=== PATIENT | male | born 1955 | race Caucasian/White ===

== ENCOUNTER → 2021-11-12 12:26 | Outpatient (BNVA) | payer MEDICARE, SELFPAY | PROVIDERS: PCP Nurse Practitioner Family; Referring Provider Nurse Practitioner Family; Visit Provider Surgery | DX: K64.9 Unspecified hemorrhoids (principal); K62.5 Hemorrhage of anus and rectum | CPT/HCPCS: 99203 ==

== ENCOUNTER 2022-01-17 06:27 | Day surgery (SDC) | payer MEDICARE, SELFPAY ==
[2022-01-14 16:04] VITALS: BMI 26.4
[2022-01-17 06:45] VITALS: BP 138/76; PULSE 54; RESP 18; TEMP 36.3; O2SAT 98
[2022-01-17] MEDS: sodium chloride 0.9% 1,000 ML 30 ML IV (06:57)
--- NOTE | 2022-01-17 07:45 | W.PM.OPSFHP ---
Same Day Surgery H&P Indication for Procedure/HPI DATE OF PROCEDURE: January 17, 2022 CHIEF COMPLAINT/INDICATIONFOR SURGICAL PROCEDURE: Bleeding per rectum PREOP DIAGNOSIS: Bleeding per rectum PLANNED PROCEDURE: Operation Date: 01/17/22 08:00 Proposed Procedures p Colonoscopy 66635(Not Applicable) - Sigifredo Sanchez MD 11/12/2021 This is a pleasant 66 years old gentleman presents with history of bleeding per rectum and often times he has a flareup of a hemorrhoid but currently it is not bothering him.? Patient reports history of colon cancer of his sister that she at age of 63.? Otherwise he denies nonintentional weight loss and he reports remotely history of peptic ulcer disease but he denies any symptoms related to his stomach.? Currently the patient does not have much complaints with regard to his hemorrhoids per his description. Interim history 01/17/2022 Patient comes today for diagnostic colonoscopy ROS All systems have been reviewed negative except as for the above or per problem list. Medications/Allergies* Home Medications Medication Instructions Recorded Confirmed Type atenolol 50 mg tablet 50 mg PO DAILY 11/12/21 01/17/22 History penicillin V potassium 500 mg 500 mg PO QID 01/16/22 01/17/22 History tablet Allergies/Adverse Reactions Allergy/AdvReac Type Severity Reaction Status Date / Time No Known Allergies Allergy Verified 01/17/22 07:46 Current Medications: Generic Name Dose Route Start Last Admin Trade Name Freq PRN Reason Stop Dose Admin Sodium Chloride 1,000 mls @ 30 mls/hr 01/17/22 06:45 01/17/22 06:57 Sodium Chloride 0.9% IV 01/18/22 06:44 30 mls/hr .Q24H ELIAS Administration Pertinent History/Comorbid Conditions* Family History (Updated 11/12/21 @ 12:40 by Tessa Lara) Dementia Cancer Denies family history of Diabetes CAD (coronary artery disease) Chronic kidney disease (CKD) Hypertension Stroke Social History Smoking and tobacco status: never smoked Alcohol intake: never Lives independently: Yes Household members: spouse Marital status: Pertinent Exam Findings alert, oriented x 3, regular rate & rhythm and procedure specific exam findings (Abdominal exam nontender nondistended soft) Recommendations Surgery/Procedure today (Colonoscopy with possible biopsy) Coding Level of Care Code Acute Sulfuric Acid Plant Supervisor for Chg Kaleb
--- NOTE | 2022-01-17 07:47 | ANES.PREANE2 ---
Documented by User: Shannen Thompson CRNA 01/17/22 07:51 Pre-Anesthetic Assessment Height/Weight: Height 1.85 m Weight 90.718 kg Temp Pulse Resp BP Pulse Ox 97.4 F L 54 L 18 138/76 98 01/17/22 06:45 01/17/22 06:45 01/17/22 06:45 01/17/22 06:45 01/17/22 06:45 Preop Diagnosis: Bleeding per rectum Operation Date: 01/17/22 08:00 Proposed Procedures p Colonoscopy 52775(Not Applicable) - Sigifredo Sanchez MD Familial anesthetic complications: none Was Beta Sara taken within 24 hours: N/A (took last night) Was Clonidine taken within 24 hours: N/A Last intake: Intake Last Liquid Date 01/16/22 Last Liquid Time 23:00 Last Solid Date 01/15/22 Last Solid Time 00:00 Social No alcohol and No tobacco Exam alert and oriented x 3 Airway Submandibular: within normal limits Cervical ROM: within normal limits Mallampati: Class III Dentition: chipped (chipped/broken in back) and full History/ROS No significant history except as noted CV/HEM Hypertension Anesthetic Plan ASA status: 2 Anesthesia: Anesthesia Evaluation and MAC Risk of > 500 ml blood loss (7ml/kg in children): No Medications/Allergies Home Medications Medication Instructions Recorded Confirmed Last Taken Type atenolol 50 mg tablet 50 mg PO DAILY 11/12/21 01/17/22 01/16/22 History penicillin V potassium 500 mg 500 mg PO QID 01/16/22 01/17/22 01/16/22 History tablet Allergies Allergy/AdvReac Type Severity Reaction Status Date / Time No Known Allergies Allergy Verified 01/17/22 07:46 Current Medications Generic Name Dose Route Start Last Admin Trade Name Freq PRN Reason Stop Dose Admin Sodium Chloride 1,000 mls @ 30 mls/hr 01/17/22 06:45 01/17/22 06:57 Sodium Chloride 0.9% IV 01/18/22 06:44 30 mls/hr .Q24H ELIAS Administration PFSH Anesthesia Medical History (Updated 01/17/22 @ 08:23 by Sigifredo Sanchez MD) Diverticulosis large intestine w/o perforation or abscess w/bleeding Family History Other Cancer Dementia Denies family history of Diabetes CAD (coronary artery disease) Chronic kidney disease (CKD) Hypertension Stroke Social History Smoking and tobacco status: never smoked Alcohol intake: never Lives independently: Yes Household members: spouse Marital status: Data Anesthesia Cardiac Studies: No Data to Display
[2022-01-17 08:19] VITALS: BP 90/55; PULSE 54; RESP 18; TEMP 36.1; O2SAT 95
--- NOTE | 2022-01-17 08:22 | ANE.PACU2 ---
Documented by User: Shannen Thompson CRNA 01/17/22 08:22 Inpatient post-anesthesia follow up: Airway intact: Yes Vital signs: Temperature 97.4 F Pulse Rate 54 Respiratory Rate 18 Blood Pressure 138/76 Pulse Oximetry 98 Oxygen Delivery Me thod Room Air Oxygen Flow Rate Fraction of Inspir ed Oxygen Hydration adequate: Yes Nausea and vomiting: No Pain level: 1 Mental status: Baseline
[2022-01-17 08:24] VITALS: BP 98/58; PULSE 52; RESP 18; O2SAT 94
[2022-01-17 08:34] VITALS: BP 115/61; PULSE 56; RESP 18; O2SAT 97
== END 2022-01-17 08:58 | disposition home or self-care (01) ==
PROVIDERS: PCP Nurse Practitioner Family; Visit Provider Surgery
PROC: 0DJD8ZZ Inspection of Lower Intestinal Tract, Via Natural or Artificial Opening Endoscopic (ICD-10-PCS; CPT 45378; principal; 2022-01-17 08:00)
DX: K62.5 Hemorrhage of anus and rectum (principal); D12.4 Benign neoplasm of descending colon; K57.30 Diverticulosis of large intestine without perforation or abscess without bleeding; I10 Essential (primary) hypertension
CPT/HCPCS: 45385; 88305; J2704; J7030

== ENCOUNTER → 2022-01-23 15:11 | Outpatient (BNVA) | payer MEDICARE, SELFPAY | PROVIDERS: PCP Nurse Practitioner Family; Visit Provider Surgery | DX: Z09 Encounter for follow-up examination after completed treatment for conditions other than malignant neoplasm (principal); K57.31 Diverticulosis of large intestine without perforation or abscess with bleeding; K63.5 Polyp of colon | CPT/HCPCS: 99213 ==

== ENCOUNTER 2022-07-06 17:50 | Inpatient (IN) | payer MEDICARE, SELFPAY ==
[2022-07-06] VITALS (8 sets, daily range): BP systolic 110–148; BP diastolic 42–93; PULSE 63–105; RESP 12–18; TEMP 36.4; O2SAT 96–99; BMI 25.7
--- NOTE | 2022-07-06 18:35 | ECG_ITS ---
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
--- NOTE | 2022-07-06 18:35 | ED_ITS ---
HPI - GI Bleed General: Chief complaint: GI Bleed Stated complaint: possible bleeding ulcers Time Seen by Provider: 07/06/22 18:35 History of Present Illness: Mr. Reyes is a 66-year-old gentleman with history of diverticulosis presenting to the emergency department due to blood per re ctum. Onset of symptoms was nonpainful earlier today initially with dark black stools however upon arriving in the emergency department he did have bright red stools associated with presyncopal type feeling including diaphoresis. Denies associated abdominal pain or infectious symptoms. No changes in diet. Intensity symptoms is currently mild though at worst was severe. No other specific changes in health, exacerbating, or alleviating factors identified. Onset (ago): hour(s) Relieving factors: none Exacerbating factors: none Associated symptoms: Reports other (Lightheaded episode with diaphoresis) Review of Systems General: Reports: 10 or more systems reviewed and unremarkable except in HPI and below PFSH ED PFSH: Medical History Diverticulosis large intestine w/o perforation or abscess w/bleeding History of gastric ulcer Hypertension Sciatica of right side Surgical History History of back surgery History of esophagogastroduodenoscopy (EGD) Family History Other Cancer Dementia Denies family history of Diabetes CAD (coronary artery disease) Chronic kidney disease (CKD) Hypertension Stroke Social History Smoking and tobacco status: never smoked Alcohol intake: never Lives independently: Yes Household members: spouse Marital status: Physical Exam Const: COMMON NORMALS: alert GENERAL APPEARANCE: cooperative, well developed and ill appearing (Mildly) HENMT: COMMON NORMALS: normocephalic and atraumatic HEAD & SCALP: normocephalic and atraumatic Eye: COMMON NORMALS: conjunctivae normal CONJUNCTIVA: Yes conjunctivae n ormal SCLERA: sclerae normal Neck/C-Spine: COMMON NORMALS: supple GENERAL: Yes trachea midline Resp: COMMON NORMALS: clear to auscultation bilaterally EFFORT & INSPECTION: Yes able to speak in complete sentences AUSCULTATION: clear to auscultation bilaterally Cardio: COMMON NORMALS: regular rate and regular rhythm RATE: regular rate RHYTHM: regular rhythm GI: COMMON NORMALS: Soft to palpation PALPATION: Yes Soft to palpation and No Tenderness to palpation present (GI) OTHER: Rectal exam performed with fibre optic cable splicer present. There is dark red blood and external hemorrhoid appreciated on exam. Extremity: GENERAL: Yes normal exam except as noted and No edema Neuro: COMMON NORMALS: moves all extremities SENSORIUM/ORIENTATION: Yes alert and No Orientation impaired Psych: COMMON NORMALS: mental status grossly normal and Normal thought process present THOUGHT PROCESS: Normal thought process present Course Vital Signs: Vital signs: Vital Signs Temperature 97.9 F 07/10/22 04:00 Pulse Rate 61 07/10/22 06:40 Respiratory Rate 17 07/10/22 04:00 Blood Pressure 119/66 07/10/22 04:00 Pulse Oximetry 98 07/10/22 04:00 Oxygen Delivery Me thod 07/09/22 20:44 Oxygen Flow Rate 4 07/08/22 12:54 MDM - GI Bleed Medical Decision Making 66-year-old gentleman presenting with GI bleed. Initially had just black stools however had a presyncopal event associated with dark red blood per rectum while in the emergency department. Exam as above. Labs notable for leukocytosis which may be reactive or secondary to infectious etiology, initial hemoglobin 11.7. Coags normal. Metabolic panel without significant derangement. Chest x-ray with no lobar consolidation or pneumothorax. CTA without evidence of active hemorrhage, incidental findings discussed with patient. Patient had recurrent presyncopal event with another bloody bowel movement. Given rectal exam findings and this evening in the context of only modest drop in hemoglobin I believe that the patient requires inpatient monitoring for repeat hemoglobin and treatment as necessary based on results. During ED course patient given IV fluids and Protonix. Case was discussed with Dr. Barrett of the general surgery service who is on- call for GI, patient to be placed on clear liquid diet and admitted to medicine service. The results of ED evaluation were discussed with the patient including plan for admission due to requirement for level of care not available if discharged to prevent significant worsening/deterioration. Patient agreeable with plan. Discussed with hospitalist service who was agreeable to admit patient. Medical Records I reviewed the patient's medical records. Lab Data I reviewed the patient's lab results. 07/06/22 18:40 07/06/22 18:40 Radiology Impressions Chest X-Ray 07/06/22 18:40 IMPRESSION: No acute findings. Abdomen/Pelvis CTA 07/06/22 19:06 IMPRESSION: 1. Negative for acute inflammatory process in the abdomen or pelvis. 2. Right kidney cyst, negative for follow-up advised. 3. Lumbar spine surgical hardware in place at T11, T12 and T1. 4. L2, L3 and L4 likely chronic compression fractures without retropulsion of bony fragments or spinal canal narrowing. 5. Diverticulosis without diverticulitis. 6. Small to moderate umbilical hernia containing omentum without bowel. COMMENTS: Consistent with the [place] [employer]'s Incidental Findings Committee white paper (J Am Jason Radiol 2018): Any incidental renal lesion less than 1 cm or classified as too small to characterize, or any incidental cystic renal lesion characterized as simple-appearing, is likely benign. No follow-up imaging is recommended for these lesions per consensus recommendations based on imaging criteria. ADDENDUM: 07/06/22 2007 Exam is a CTA of the abdomen and pelvis. CTA images of the entire chest were not included. Hip X-Ray 07/07/22 12:16 IMPRESSION: No acute findings. Lumbar Spine CT 07/07/22 12:16 IMPRESSION: 1. Severe osteopenia and osteoarthritis. 2. Multiple compression fractures in the lumbar spine . 3. Postoperative hardware left-side T12-L1. 4. A large Schmorl's nodes superior endplate L4 5. Mild central canal stenosis L4-L5 . Thoracic Spine CT 07/07/22 12:16 IMPRESSION: 1. Osteopenia and osteoarthritis. 2. Multiple vertebral compression fractures. 3. Orthopedic hardware left side T12-L1 4. Negative for disc herniation, foraminal stenosis, canal stenosis Laboratory Results WBC 8.0 10^3/uL (4.0-10.0) 07/08/22 05:05 RBC 2.77 10^6/uL (4.1-5.3) L 07/08/22 05:05 Hgb 8.1 g/dL (11.7-16.6) L 07/08/22 14:31 Hct 26.0 % (42.0-52.0) L 07/08/22 05:05 MCV 93.9 fl (80-94) 07/08/22 05:05 MCH 30.3 pg (28.0-34.0) 07/08/22 05:05 MCHC 32.3 g/dL (30.0-36.0) 07/08/22 05:05 RDW 13.4 % (12.1-15.1) 07/08/22 05:05 Plt Count 144 10^3/cmm (130-400) 07/08/22 05:05 MPV 11.3 fL (7.4-10.4) H 07/08/22 05:05 Neut % (Auto) 71.2 % 07/08/22 05:05 Lymph % (Auto) 20.1 % 07/08/22 05:05 [place] % (Auto) 6.0 % 07/08/22 05:05 Eos % (Auto) 1.3 % 07/08/22 05:05 Baso % (Auto) 0.4 % 07/08/22 05:05 Neut # (Auto) 5.66 10^3/uL (1.8-7.7) 07/08/22 05:05 Lymph # (Auto) 1.6 10^3/uL (0.8-4.8) 07/08/22 05:05 [place] # (Auto) 0.5 10^3/uL (0.2-0.9) 07/08/22 05:05 Eos # (Auto) 0.1 10^3/uL (0.0-0.8) 07/08/22 05:05 Baso # (Auto) 0.0 10^3/uL (0.0-0.1) 07/08/22 05:05 Nucleated RBC % (auto) 0 % 07/08/22 05:05 Nucleated RBCs # 0.0 /100WBC 07/08/22 05:05 PT 14.40 SECONDS (12.1-14.9) 07/06/22 18:40 INR 1.09 (0.8-1.2) 07/06/22 18:40 APTT 22.0 SECONDS (23.9-36.7) L 07/06/22 18:40 Sodium 140 mmol/L (136-145) 07/08/22 05:05 Potassium 4.0 mmol/L (3.5-5.1) 07/08/22 05:05 Chloride 109 mmol/L (98-107) H 07/08/22 05:05 Carbon Dioxide 23 mmol/L (22-29) 07/08/22 05:05 Anion Gap 12.0 (5-19) 07/08/22 05:05 BUN 11 mg/dL (8-23) 07/08/22 05:05 Creatinine 0.8 mg/dL (0.7-1.2) 07/08/22 05:05 GFR Calculation 96.4 mL/min (90-130) 07/08/22 05:05 Glucose 96 mg/dL (65-115) 07/08/22 05:05 Estimat Average Glucose 111 07/08/22 05:05 Hemoglobin A1c 5.5 % (4.0-6.0) 07/08/22 05:05 Calculated Osmolality 289 mOsm/kg (285-295) 07/08/22 05:05 Lactate 1.5 mmol/L (0.5-2.2) 07/06/22 19:17 Calcium 7.8 mg/dL (8.5-10.5) L 07/08/22 05:05 Phosphorus 3.6 mg/dL (2.5-4.5) 07/07/22 03:41 Magnesium 2.0 mg/dL (1.7-2.3) 07/07/22 03:41 Iron 256 ug/dL (59-158) H 07/07/22 17:40 TIBC 272.80653 mcg/dl 07/07/22 17:40 % Saturation 93.0 % (20-50) H 07/07/22 17:40 Unsat Iron Binding < 17 ug/dL (112-347) L 07/07/22 17:40 Total Bilirubin 0.7 mg/dL (0.15-1.2) 07/08/22 05:05 AST 14 U/L (0-40) 07/08/22 05:05 ALT 7 U/L (0-41) 07/08/22 05:05 Alkaline Phosphatase 66 U/L (40-130) 07/08/22 05:05 Troponin T Baseline 14 ng/L (0-15) 07/06/22 18:40 Troponin T 120 Minute 14.11 ng/L (0-15) 07/06/22 20:35 Delta Troponin T 0.11 ABS# (0-10) 07/06/22 20:35 Troponin T Hi Sens 6Hr 15.95 ng/L (0-15) H 07/07/22 00:35 Troponin T Hi Sens 6Hr Delta 1.95 ng/L (0-12) 07/07/22 00:35 Total Protein 5.0 g/dL (6.6-8.7) L 07/08/22 05:05 Albumin 2.9 g/dL (3.5-5.2) L 07/08/22 05:05 Globulin 2.1 g/dL (1.3-4.6) 07/08/22 05:05 Triglycerides 122 mg/dL (0-150) 07/08/22 05:05 Cholesterol 112 mg/dL (0-200) 07/08/22 05:05 LDL Cholesterol, Calc 60 mg/dL (50-129) 07/08/22 05:05 Total VLDL Cholesterol 24 mg/dL (0-30) 07/08/22 05:05 HDL Cholesterol 28 mg/dL (60-100) L 07/08/22 05:05 Cholesterol/HDL Ratio 4.00 mg/dL (1.0-5.00) 07/08/22 05:05 Lipase 18 U/L (13-60) 07/06/22 18:40 Vitamin B12 204 pg/mL (232-1245) L 07/07/22 17:40 Folate 7.4 ng/mL (4.5-32.2) 07/07/22 17:40 TSH 0.68 uIU/mL (0.27-4.20) 07/07/22 17:40 Urine Color Yellow (Yellow) 07/07/22 23:12 Urine Appearance Clear (CLEAR) 07/07/22 23:12 Urine pH 6 (5-7) 07/07/22 23:12 Ur Specific [place] 1.010 (1.005-1.030) 07/07/22 23:12 Urine Protein Neg (Negative) 07/07/22 23:12 Urine Glucose (UA) Norm (Normal) 07/07/22 23:12 Urine Ketones Negative (Negative) 07/07/22 23:12 Urine Blood Neg (Negative) 07/07/22 23:12 Urine Nitrate Negative (Negative) 07/07/22 23:12 Urine Bilirubin Neg (Negative) 07/07/22 23:12 Urine Urobilinogen Neg mg/dL (Negative) 07/07/22 23:12 Ur Leukocyte Esterase Negative (Negative) 07/07/22 23:12 Blood Type O Positive 07/08/22 12:30 Rho(D) Type Positive 07/08/22 12:30 Antibody Screen Negative 07/08/22 12:30 Crossmatch See Detail 07/08/22 12:30 Discharge Plan Discharge Patient Disposition: Placed in Observation Admit Provider: Martha Espinal Clinical Impression: Lower gastrointestinal hemorrhage, Near syncope Discharge Activity: Limit activity as instructed Coding Level of Care Code ED Scuba Dive Training Instructor for Chg Fwd Exam Comprehensive
--- NOTE | 2022-07-06 18:40 | XRR_ITS ---
PROCEDURE INFORMATION: Exam: XR Chest Exam date and time: 07/06/2022 6:50 PM Age: 66 years old Clinical indication: Other: Syncope; Additional info: Near syncope TECHNIQUE: Imaging protocol: Radiologic exam of the chest. Views: 1 view. COMPARISON: No relevant prior studies available. FINDINGS: Lungs: Unremarkable. No consolidation. Pleural spaces: Unremarkable. No pleural effusion. No pneumothorax. Heart/Mediastinum: Unremarkable. No cardiomegaly. Bones/joints: Unremarkable. XR/XR chest 1V portable [id number] IMPRESSION: No acute findings.
--- NOTE | 2022-07-06 18:48 | PC.NURSE ---
while in waiting room, pt went to restroom. notified by other person in waiting room that pt needed help. pt noted to be sitting in chair in waiting room cool, pale, and diaphoretic. visitor stated pt began shaking and looked like he had a seizure. pt has no memory of event. pt taken to ER room via wheelchair for further evaluation
[2022-07-06 18:58] LABS: Basophils # 0.1 10^3/uL (0.0-0.1); Basophils % 0.3 %; Eosinophils # 0.1 10^3/uL (0.0-0.8); Eosinophils % 0.3 %; Hemoglobin 11.7 g/dL (11.7-16.6); Lymphocytes # 2.3 10^3/uL (0.8-4.8); Mean Corpuscular HGB Conc 32.5 g/dL (30.0-36.0); Mean Corpuscular Hemoglobin 30.3 pg (28.0-34.0); Mean Corpuscular Volume 93.3 fl (80-94); Mean Platelet Volume 11.8 fL (7.4-10.4); Monocytes # 1.4 10^3/uL (0.2-0.9); Monocytes % 8.5 %; Neutrophils # 12.29 10^3/uL (1.8-7.7); Neutrophils % 76.3 %; Nucleated Red Blood Cells % 0 %; Platelet Count 223 10^3/cmm (130-400); Red Blood Count 3.86 10^6/uL (4.1-5.3); White Blood Count 16.1 10^3/uL (4.0-10.0)
[2022-07-06 19:04] LABS: INR 1.09 (0.8-1.2)
--- NOTE | 2022-07-06 19:06 | CTR_ITS ---
PROCEDURE INFORMATION: Exam: CTA Chest With Contrast CTA Abdomen and Pelvis With Contrast Exam date and time: 07/06/2022 7:26 PM Age: 66 years old Clinical indication: Other: Gi bleed, near syncope; Other: Near syncope, gi bleed; Prior surgery; Surgery date: 6+ months; Surgery type: Back surgery; Additional info: Gib TECHNIQUE: Imaging protocol: Computed tomographic angiography of the chest with contrast. Computed tomographic angiography of the abdomen and pelvis with contrast. 3D rendering (Not supervised by radiologist): MIP and/or 3D reconstructed images were created by the technologist. Radiation optimization: All CT scans at this facility use at least one of these dose optimization techniques: automated exposure control; mA and/or kV adjustment per patient size (includes targeted exams where dose is matched to clinical indication); or iterative reconstruction. Contrast material: OMNI 350; Contrast volume: 100 ml; Contrast route: INTRAVENOUS (IV); COMPARISON: CR (CHEST, ) 07/06/2022 6:50 PM RADIATION DOSE METRICS: Total DLP (mGy-cm): 644.99 FINDINGS: VASCULATURE: Pulmonary arteries: Normal. No pulmonary emboli. Aorta: No aortic aneurysm. No aortic dissection. Celiac trunk and mesenteric arteries: No occlusion or significant stenosis. Renal arteries: No occlusion or significant stenosis. Right iliac arteries: No occlusion or significant stenosis. Left iliac arteries: No occlusion or significant stenosis. CHEST: Lungs: Unremarkable. No consolidation. No masses. Pleural spaces: Unremarkable. No pneumothorax. No pleural effusion. Heart: Unremarkable. No cardiomegaly. No pericardial effusion. ABDOMEN AND PELVIS: Liver: No mass. Gallbladder and bile ducts: Unremarkable. No calcified stones. No ductal dilation. Pancreas: Unremarkable. No mass. No ductal dilation. Spleen: Unremarkable. No splenomegaly. Adrenal glands: Unremarkable. No mass. Kidneys and ureters: Right kidney cyst, negative for follow-up advised. Stomach and bowel: Diverticulosis without diverticulitis. Appendix: No evidence of appendicitis. Intraperitoneal space: Unremarkable. No free air. No significant fluid collection. Urinary bladder: Unremarkable. No mass. Reproductive: Unremarkable as visualized. Lymph nodes: Unremarkable. No enlarged lymph nodes. Bones/joints: Lumbar spine surgical hardware in place at T11, T12 and T1. L2, L3 and L4 likely chronic compression fractures without retropulsion of bony fragments or spinal canal narrowing. Soft tissues: Small to moderate umbilical hernia containing omentum without bowel. CT/CT angio abdomen pelvis [id number] IMPRESSION: 1. Negative for acute inflammatory process in the abdomen or pelvis. 2. Right kidney cyst, negative for follow-up advised. 3. Lumbar spine surgical hardware in place at T11, T12 and T1. 4. L2, L3 and L4 likely chronic compression fractures without retropulsion of bony fragments or spinal canal narrowing. 5. Diverticulosis without diverticulitis. 6. Small to moderate umbilical hernia containing omentum without bowel. COMMENTS: Consistent with the [place] [employer]'s Incidental Findings Committee white paper (J Am Jason Radiol 2018): Any incidental renal lesion less than 1 cm or classified as too small to characterize, or any incidental cystic renal lesion characterized as simple-appearing, is likely benign. No follow-up imaging is recommended for these lesions per consensus recommendations based on imaging criteria.
[2022-07-06 19:11] LABS: Alanine Aminotransferase 12 U/L (0-41); Albumin Level 3.5 g/dL (3.5-5.2); Alkaline Phosphatase 79 U/L (40-130); Anion Gap 13.7 (5-19); Aspartate Amino Transferase 18 U/L (0-40); Blood Urea Nitrogen 16 mg/dL (8-23); Calcium 8.6 mg/dL (8.5-10.5); Carbon Dioxide 25 mmol/L (22-29); Chloride 102 mmol/L (98-107); Globulin 2.7 g/dL (1.3-4.6); Glomerular Filtration Rate 66.8 mL/min (90-130); Glucose 166 mg/dL (65-115); Lipase 18 U/L (13-60); Osmolality Calculated 289 mOsm/kg (285-295); Potassium 3.7 mmol/L (3.5-5.1); Sodium 137 mmol/L (136-145); Total Bilirubin 0.4 mg/dL (0.15-1.2); Total Protein 6.2 g/dL (6.6-8.7)
[2022-07-06 19:13] LABS: Troponin(5th) Baseline 14 ng/L (0-15)
[2022-07-06] MEDS: iohexol 350 mg/mL 500 mL Btl (per mL) IV (19:27)
[2022-07-06 19:44] LABS: Lactate (Lactic Acid level) 1.5 mmol/L (0.5-2.2)
[2022-07-06] MEDS: pantoprazole 40 mg SDV 80 MG IVP (20:33)
[2022-07-06] MEDS: sodium chloride 0.9% 1,000 ML 999 ML IV (20:33)
--- NOTE | 2022-07-06 20:40 | ECG_ITS ---
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
[2022-07-06 21:02] LABS: Troponin 5 2HR 14.11 ng/L (0-15)
[2022-07-06 21:22] LABS: Troponin 5 2HR Delta 0.11 ABS# (0-10)
[2022-07-06 22:01] LABS: Hematocrit 32.4 % (42.0-52.0); Hemoglobin 10.5 g/dL (11.7-16.6)
--- NOTE | 2022-07-06 22:05 | P.HP_ITS ---
Providers/Chief Complaint Primary Care Provider: Sofia Cassidy Chief Complaint: possible bleeding ulcers History of Present Illness John Reyes is a 66 year old male with history of diverticulosis, had EGD and colonoscopy done by Dr. Sanchez 01/09 presented today with couple of episode of presyncope while having a bowel movement. He was found to have posterior external hemorrhoids pain diverticulosis of colon current tubular adenoma without evidence of high-grade dysplasia hyperplastic polyp. In the ER he is slightly hypertensive, tachycardic. CT scan is showing diverticulosis without diverticulitis, omentum containing umbilical hernia, chronic compression fracture L2-L4 surgical hardware T11-T1. Hemoglobin stable at 10.5 severe leukocytosis 16,000, BMP unremarkable. Patient is stating that he recently got dexamethasone and cyclobenzaprine meloxicam and hydrocodone for his sciatica and since then he has been noticing bright bleed per rectum. He was associating usually of opioids with bright bleed per rectum. Today around 5 PM he started having bright bleed per rectum couple of episodes so far every time he is going to the bathroom he is noticing fresh blood in the toilet seat, according to the he became very weak and lethargic and started shaking after having a bowel movement, he became stuporous as well without loss of consciousness. Patient is under the impression that opioids have something to do with his right bleed per rectum. He does note he carries history of hemorrhoids, diverticulosis. He does not take any blood thinners. Denies constipation Review of Systems Const: Denies: fever(s) Eyes: Denies: change in vision ENMT: Denies: throat pain Card: Denies: chest pain Resp: Denies: dyspnea GI: Reports: hematochezia : Denies: flank pain Musc: Denies: neck pain Skin/Breast: Denies: rash Neuro: Denies: headache(s) Psych: Denies: anxiety Endo: Denies: polyuria Mega/Lymph: Denies: easy bruising All/Imm: Denies: urticaria Medications/Allergies Home Medications Medication Instructions Recorded Confirmed Last Taken Type atenolol 50 mg tablet 50 mg PO DAILY 11/12/21 01/27/22 01/16/22 History penicillin V potassium 500 mg 500 mg PO QID 01/16/22 01/27/22 01/16/22 History tablet Allergies Allergy/AdvReac Type Severity Reaction Status Date / Time No Known Allergies Allergy Verified 01/27/22 07:40 PFSH Acute PFSH: Medical History (Updated 07/06/22 @ 22:07 by Camron Alberto MD) Diverticulosis large intestine w/o perforation or abscess w/bleeding History of gastric ulcer Hypertension Surgical History (Updated 07/06/22 @ 22:06 by Martha Espinal MD) History of back surgery History of esophagogastroduodenoscopy (EGD) Family History Other Cancer Dementia Denies family history of Diabetes CAD (coronary artery disease) Chronic kidney disease (CKD) Hypertension Stroke Social History Smoking and tobacco status: never smoked Alcohol intake: never Lives independently: Yes Household members: spouse Marital status: Vitals/I&O/Wt Last Vital Signs Temp 97.5 F L 07/06/22 17:56 Pulse 77 07/06/22 19:56 Resp 12 07/06/22 18:44 BP 116/71 07/06/22 19:56 Pulse Ox 99 07/06/22 18:44 O2 Del Method Nasal Cannula 07/06/22 18:44 Weight last 48 hrs Weight 88.269 kg Physical Exam Narrative: Awake and alert S1, S2 sinus rhythm heart rate in 70s Hemodynamically stable Abdomen soft Dry mucous membranes Dehydrated at the bedside Nonfocal neuro exam Doing well on room air Pleasant and cooperative EOMI, PERRLA Data 07/06/22 21:54 07/06/22 18:40 A&P Assessment and plan (1) Bleeding per rectum: (2) Diverticulosis large intestine w/o perforation or abscess w/bleeding: (3) Colon polyps: Plan Presyncope with active lower GI bleed History of diverticulosis and hemorrhoids Most likely this is combination of hemorrhoidal and diverticular bleed Secondary to presyncopal events we are admitting him to hydrate him overnight Watch H&H We will put him on clear liquid diet Dr. 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
[2022-07-06] MEDS: sodium chloride 0.9% 1,000 ML 100 ML IV (23:11)
[2022-07-07] VITALS (15 sets, daily range): BP systolic 107–144; BP diastolic 55–70; PULSE 52–72; RESP 15–22; TEMP 36.4–36.6; O2SAT 91–98
[2022-07-07 00:37] LABS: Hematocrit 29.4 % (42.0-52.0); Hemoglobin 9.7 g/dL (11.7-16.6)
--- NOTE | 2022-07-07 00:41 | ECG_ITS ---
[facility] Test Date: 2022-07-07 Pat Name: Renato Reyes Department: Room: 276 Gender: Male Technical Asst: : [id number] Requested By: Camron Alberto Order Number: [id number] Callie MD: Yuri Yin Measurements Intervals [place] Rate: 68 P: 63 GA: 130 QRS: 53 QRSD: 79 T: 60 QT: 397 QTc: 424 Interpretive Statements SINUS RHYTHM MINIMAL VOLTAGE CRITERIA FOR LVH, CONSIDER NORMAL VARIANT [MEETS CRITERIA IN ONE OF: R(aVL), S(V1), R(V5), R(V5/V6)+S(V1)] Compared to ECG 07/06/2022 20:40:53 No significant changes Electronically Signed On 07-07-2022 15:40:21 PORT CAPTAIN by Yuri Yin [id number]
[2022-07-07 01:13] LABS: Troponin 5 6HR 15.95 ng/L (0-15)
[2022-07-07 01:20] LABS: Troponin 5 6HR Delta 1.95 ng/L (0-12)
[2022-07-07] MEDS: acetaminophen 500 mg Tablet PO ×3 (01:22→23:06)
[2022-07-07 04:05] LABS: Basophils % 0.3 %; Eosinophils % 0.2 %; Hematocrit 27.3 % (42.0-52.0); Hemoglobin 8.9 g/dL (11.7-16.6); Lymphocytes # 2.2 10^3/uL (0.8-4.8); Lymphocytes % 21.1 %; Mean Corpuscular HGB Conc 32.6 g/dL (30.0-36.0); Mean Corpuscular Hemoglobin 30.4 pg (28.0-34.0); Mean Corpuscular Volume 93.2 fl (80-94); Mean Platelet Volume 11.7 fL (7.4-10.4); Monocytes # 0.7 10^3/uL (0.2-0.9); Monocytes % 6.3 %; Neutrophils # 7.46 10^3/uL (1.8-7.7); Neutrophils % 71.3 %; Nucleated Red Blood Cells % 0 %; Platelet Count 174 10^3/cmm (130-400); Red Blood Count 2.93 10^6/uL (4.1-5.3); Red Cell Distribution Width 13.2 % (12.1-15.1); White Blood Count 10.5 10^3/uL (4.0-10.0)
[2022-07-07 04:37] LABS: Blood Urea Nitrogen 15 mg/dL (8-23); Calcium 7.7 mg/dL (8.5-10.5); Carbon Dioxide 24 mmol/L (22-29); Chloride 104 mmol/L (98-107); Glomerular Filtration Rate 84.2 mL/min (90-130); Glucose 117 mg/dL (65-115); Osmolality Calculated 282 mOsm/kg (285-295); Phosphorus 3.6 mg/dL (2.5-4.5); Sodium 135 mmol/L (136-145)
--- NOTE | 2022-07-07 06:02 | PC.NURSE ---
Addendum entered by Maddi Villagomez RN 07/07/22 06:05: One unit PRBC ordered. Original Note: Dr. Espinal notified of hemoglobin trending down.
[2022-07-07] MEDS: pantoprazole 40 mg SDV IVP ×2 (08:27→18:25)
--- NOTE | 2022-07-07 08:50 | PC.NURSE ---
Pain Patient has intermittent sciatica nerve pain at this time. Despite the tylenol the pain remains. Discussed morphine as an additional prn medication that may be given. Pt is refusing any additional medications at this time. Will closely monitor.
[2022-07-07] MEDS: sodium chloride 0.9% 1,000 ML 100 ML IV ×2 (09:33→20:25)
--- NOTE | 2022-07-07 12:00 | PC.NURSE ---
discussion with Dr. estevez regarding possible medication management.
--- NOTE | 2022-07-07 12:16 | CTR_ITS ---
PROCEDURE INFORMATION: Exam: CT Thoracic Spine Without Contrast Exam date and time: 07/07/2022 1:45 PM Age: 66 years old Clinical indication: Pain in thoracic spine; Without myelpathy or radiculopathy; Prior surgery; Additional info: Back pain TECHNIQUE: Imaging protocol: Computed tomography of the thoracic spine without contrast. Radiation optimization: All CT scans at this facility use at least one of these dose optimization techniques: automated exposure control; mA and/or kV adjustment per patient size (includes targeted exams where dose is matched to clinical indication); or iterative reconstruction. COMPARISON: CT angio abdomen pelvis [id number] 07/06/2022 7:26 PM RADIATION DOSE METRICS: Total DLP (mGy-cm): 1261.75 FINDINGS: Bones/joints: There is generalized osteopenia and osteoarthritis. There is compression fracture involving the T11 vertebral body with Schmorl's node on the inferior and superior endplate. The T7 and T8 vertebral bodies also show compression fractures. Normal alignment. No significant disc protrusion. No severe spinal canal stenosis. Metallic orthopedic hardware is seen in the left-side T12 L1 vertebral bodies. Soft tissues: Unremarkable. CT/CT thoracic spin wo con* [id number] IMPRESSION: 1. Osteopenia and osteoarthritis. 2. Multiple vertebral compression fractures. 3. Orthopedic hardware left side T12-L1 4. Negative for disc herniation, foraminal stenosis, canal stenosis
--- NOTE | 2022-07-07 12:16 | CTR_ITS ---
PROCEDURE INFORMATION: Exam: CT Lumbar Spine Without Contrast Exam date and time: 07/07/2022 1:45 PM Age: 66 years old Clinical indication: Low back pain; Prior surgery; Surgery date: 6+ months TECHNIQUE: Imaging protocol: Computed tomography of the lumbar spine without contrast. Radiation optimization: All CT scans at this facility use at least one of these dose optimization techniques: automated exposure control; mA and/or kV adjustment per patient size (includes targeted exams where dose is matched to clinical indication); or iterative reconstruction. COMPARISON: CT angio abdomen pelvis [id number] 07/06/2022 7:26 PM RADIATION DOSE METRICS: Total DLP (mGy-cm): 1261.75 FINDINGS: Bones/joints: Generalized osteopenia and osteoarthritis is seen. Multiple vertebral compression fractures normal Normal alignment. There is orthopedic hardware on the left side of the T12 and L1 vertebral bodies L5-S1: There is mild protrusion of the annulus with effacement of the thecal sac. This level does not show foraminal stenosis or canal stenosis. L4-L5: A large Schmorl's node is seen in superior endplate of the L4 vertebral body. There is circumferential bulge of the annulus with effacement of the anterior aspect of the thecal sac thickening of the ligamentum flavum is seen at this level. The findings are consistent with mild central canal stenosis. L3-L4: There is circumferential bulge of the annulus with effacement of the thecal sac. The exam does not show foraminal stenosis. Compression fracture is seen at the L3 vertebral body superior endplate L2-L3 : There is a central bulge of the annulus with effacement of the thecal sac. The spinal canal does not show foraminal stenosis or central canal stenosis. L1-L2: Normal of exam of this space no disc herniation foraminal stenosis or central canal stenosis Soft tissues: There is a large benign cyst upper pole right kidney 78 mm [address]/CT lumbar spine wo con* [id number] IMPRESSION: 1. Severe osteopenia and osteoarthritis. 2. Multiple compression fractures in the lumbar spine . 3. Postoperative hardware left-side T12-L1. 4. A large Schmorl's nodes superior endplate L4 5. Mild central canal stenosis L4-L5 .
--- NOTE | 2022-07-07 12:16 | XRR_ITS ---
PROCEDURE INFORMATION: Exam: XR Right Hip Exam date and time: 07/07/2022 12:37 PM Age: 66 years old Clinical indication: Injury or trauma; Fall; Blunt trauma (contusions or hematomas); Right; Hip; Additional info: Pain in hip after trauma TECHNIQUE: Imaging protocol: Radiologic exam of the Right hip. Views: 1 view hip with pelvis when performed. COMPARISON: CT angio abdomen pelvis [id number] 07/06/2022 7:26 PM FINDINGS: Bones/joints: Unremarkable. No acute fracture. Soft tissues: Unremarkable. XR/XR hip RT 1V wo/w pel [id number] IMPRESSION: No acute findings.
[2022-07-07] MEDS: gabapentin 300 mg Capsule PO ×3 (13:02→20:24)
[2022-07-07] MEDS: ketorolac 30 mg/mL INJ 15 MG IVP ×2 (13:02→22:16)
--- NOTE | 2022-07-07 13:44 | PC.NURSE ---
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
--- NOTE | 2022-07-07 14:00 | PC.NURSE ---
Addendum entered by Deepti De Luna RN 07/07/22 14:03: Note for 0800 Original Note: pain is intermittent r/t to sciatic nerve pain. denies need for medication at this time. attempting cool pack and changing of positions.
--- NOTE | 2022-07-07 16:21 | PM.PN ---
Subjective Subjective: Admitted overnight. H&P and labs appreciated. Seen with family at bedside. Patient complaining of extensive back pain on minimal movement with radiation down to his right leg. No further episodes of diarrhea or bleeding per rectum. Has remained hemodynamically stable and afebrile. Transfuse 1 unit of blood overnight. Vitals/I&O/Wt Last Vital Signs Temp 97.8 F 07/07/22 11:35 Pulse 55 L 07/07/22 11:35 Resp 15 07/07/22 11:35 BP 144/70 07/07/22 11:35 Pulse Ox 96 07/07/22 11:35 O2 Del Method 07/07/22 11:35 07/07/22 07/07/22 07/07/22 06:59 14:59 22:59 Intake Total 1000 / 1000 1590 / 1590 Output Total 200 / 200 Balance 800 / 800 1590 / 1590 Weight last 48 hrs Weight 88.269 kg Physical Exam Narrative: General: In acute distress because of back pain with minimal movement, AO x3, on room air HEENT: PERRLA, pupils bilaterally equal and reactive Chest:Bronchial breath sounds b/l ,decreased air entry, equal good air entry bilaterally, no more fine basal crackles CVS: S1-S2 regular, no murmurs, no tachycardia, no gallops, no rubs Abdomen: Soft, nontender, no organomegaly, bowel sounds present, morbidly obese Neuro: No focal deficits, no facial deformity, AO x3, power 5/5 in all limbs Extremities: Bilateral pulses equal, sensory intact, DTR downtrending Data 07/07/22 03:41 07/07/22 03:41 A&P Assessment and plan (1) Pre-syncope: Most likely secondary lower GI bleed leading to orthostatic hypotension. Continue with telemetry. No concerns for CVA. Troponin cycled negative (2) Bleeding per rectum: Leading to presyncope. Post 1 unit of blood transfusion. Maintain hemoglobin over 8. Start on oral iron supplementation. Check vitamin B12, folate levels. Surgery has been consulted from the ER. Continue with Protonix 40 mg twice daily. Continue with clear liquid diet. Hemoglobin and hematocrit to be repeated in evening. (3) Back pain: Secondary to history of lumbar compression fracture. Being treated as an outpatient with physical therapy and oral pain management. Check CT lumbar and thoracic spine. Will consult orthopedic spine surgery on Friday once available. For now start patient on ketorolac 15 mg every 8 hourly as needed. Start on gabapentin 300 mg 3 times daily, tizanidine 2 mg 3 times daily as needed, Requip 0.5 mg at bedtime. Medication changes have been discussed in detail with patient and patient's family and they are all agreeable. No concerns for cauda equina. (4) Lumbar compression fracture: (5) Sciatica of right side: (6) Diverticulosis large intestine w/o perforation or abscess w/bleeding: (7) Colon polyps: Plan Full code. Clear liquid diet. SCDs for DVT prophylaxis. 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
[2022-07-07 18:16] LABS: Iron 256 ug/dL (59-158)
[2022-07-07 18:22] LABS: Folate Level 7.4 ng/mL (4.5-32.2)
[2022-07-07] MEDS: ferrous gluconate 324 mg Tablet PO (18:24)
[2022-07-07 18:25] LABS: Thyroid Stimulating Hormone 0.68 uIU/mL (0.27-4.20)
[2022-07-07 18:33] LABS: Vitamin B12 204 pg/mL (232-1245)
[2022-07-07 18:59] LABS: Unsaturated Iron Binding < 17 ug/dL (112-347)
--- NOTE | 2022-07-07 19:07 | PM.CONSULT ---
Providers/Reason For Consult Consulting Physician/Specialty*: Dr. Holden Barrett DO/General surgery Reason for Consult*: GI bleed Attending Physician: Alen Mancia MD Primary Care Provider: Sofia Cassidy History of Present Illness History of Present Illness Renato Reyes is a 66 year old male who presented to the hospital with a 1 day history of GI bleed and weakness. He reported that he started having dark stools which eventually became bright red. He has a history of gastric ulcer in the past and resulting vagotomy. He reports that he had weakness and for this reason he came to the hospital. He denies any abdominal pain or other symptoms. He had a colonoscopy 6 months ago which revealed pandiverticulosis and internal hemorrhoids. He also underwent polypectomy. He denies getting any heartburn. Review of Systems General: Reports: 10 or more systems reviewed and unremarkable except in HPI and below Medications/Allergies Home Medications Medication Instructions Recorded Confirmed Last Taken Type atenolol 50 mg tablet 50 mg PO BEDTIME 11/12/21 07/06/22 1 Day Ago History ~07/05/22 Allergies Allergy/AdvReac Type Severity Reaction Status Date / Time No Known Allergies Allergy Verified 01/27/22 07:40 Current Medications Generic Name Dose Route Start Last Admin Trade Name Freq PRN Reason Stop Dose Admin Acetaminophen 500 mg 07/06/22 22:48 07/07/22 08:25 Acetaminophen 500 Mg Tablet PO 500 mg Q4H PRN Administration fever Ferrous Gluconate 324 mg 07/07/22 18:00 07/07/22 18:24 Ferrous Gluconate 324 Mg Tablet PO 324 mg BIDWM ELIAS Administration Gabapentin 300 mg 07/07/22 12:20 07/07/22 15:49 Gabapentin 300 Mg Capsule PO 300 mg TID ELIAS Administration Sodium Chloride 1,000 mls @ 100 mls/hr 07/06/22 22:48 07/07/22 09:33 Sodium Chloride 0.9% IV 100 mls/hr .Q10H ELIAS Administration Pantoprazole Sodium 40 mg 07/07/22 09:00 07/07/22 18:25 Pantoprazole 40 Mg Sdv IVP 40 mg BID ELIAS Administration PFSH Acute PFSH: Medical History Diverticulosis large intestine w/o perforation or abscess w/bleeding History of gastric ulcer Hypertension Sciatica of right side Surgical History History of back surgery History of esophagogastroduodenoscopy (EGD) Family History Other Cancer Dementia Denies family history of Diabetes CAD (coronary artery disease) Chronic kidney disease (CKD) Hypertension Stroke Social History Smoking and tobacco status: never smoked Alcohol intake: never Lives independently: Yes Household members: spouse Marital status: Vitals/I&O/Wt Last Vital Signs Temp 97.8 F 07/07/22 16:00 Pulse 61 07/07/22 16:00 Resp 16 07/07/22 16:00 BP 127/67 07/07/22 16:00 Pulse Ox 94 07/07/22 16:00 O2 Del Method 07/07/22 11:35 07/07/22 07/07/22 07/07/22 06:59 14:59 22:59 Intake Total 1000 / 1000 1590 / 1590 360 / 1950 Output Total 200 / 200 150 / 150 Balance 800 / 800 1590 / 1590 210 / 1800 Weight last 48 hrs Weight 194 lb 9.6 oz Physical Exam Narrative: General : Patient is well developed , no acute distress, oriented x3 Head : Normal cephalic, a-traumatic. Ears : Pinnae and external canal are normal. Hearing is normal. Eyes : PERRLA, Sclera and injection are normal. No conjunctival discharge. Nose : Mucous membranes are without erythema. Throat : buccal mucosa is normal, gums are without significant recession or hypertrophy. Lungs : Equal chest rise bilaterally, no use of accessory muscles, trachea is midline. Cor : Rate and rhythm are normal. Abdomen : Soft, ND, NT, no g/r/m Extremities : No edema, no cyanosis or clubbing, dorsalis pedis pulses are present bilaterally, non-tender to palpation of calves. Upper extremities are normal bilaterally. Back : non-tender to palpation, no CVA tenderness. Neuro : CN II - XII intact, Upper and lower extremities have equal and full strength Data 07/07/22 17:40 07/07/22 03:41 A&P Assessment and plan (1) Bleeding per rectum: Plan IV fluids Protonix Transfuse as necessary EGD Sigmoidoscopy The risks and benefits of the procedure, including bleeding, infection, intestinal perforation requiring surgery, missed lesion were explained to the patient. The patient is understanding of the risks and wishes to proceed. 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
[2022-07-07] MEDS: cyanocobalamin 1,000 mcg/mL SDV 1000 MCG IM (19:50)
[2022-07-07] MEDS: ropinirole 0.25 mg Tablet 0.5 MG PO (20:24)
[2022-07-07] MEDS: tizanidine 4 mg Tablet 2 MG PO (23:06)
[2022-07-07] MEDS: TRAMadol 50 mg Tablet PO (23:07)
[2022-07-07 23:23] LABS: Add Urine Microscopic? NO; Charge for UA Resulting for Rev
[2022-07-07 23:43] LABS: Bilirubin Urine Neg (Negative); Blood Urine Neg (Negative); Glucose Urine UA Norm (Normal); Ketones Urine Negative (Negative); Leukocyte Esterase Urine Negative (Negative); Nitrate Urine Negative (Negative); Protein Urine Neg (Negative); Urine Appearance Clear (CLEAR); Urine Color Yellow (Yellow); Urobilinogen Urine Neg (Negative); pH Urine 6 (5-7)
[2022-07-08] VITALS (28 sets, daily range): BP systolic 91–143; BP diastolic 52–86; PULSE 56–111; RESP 13–18; TEMP 36.3–37.5; O2SAT 91–98
--- NOTE | 2022-07-08 05:43 | PC.NURSE ---
Pt had an extra lg bloody stool, bright red in appearance w/small clots present. Spoke w/pt and again about bowel prep for scope today. Verbalized understanding.
[2022-07-08 05:46] LABS: Basophils % 0.4 %; Eosinophils # 0.1 10^3/uL (0.0-0.8); Eosinophils % 1.3 %; Hemoglobin 8.4 g/dL (11.7-16.6); Lymphocytes # 1.6 10^3/uL (0.8-4.8); Lymphocytes % 20.1 %; Mean Corpuscular HGB Conc 32.3 g/dL (30.0-36.0); Mean Corpuscular Hemoglobin 30.3 pg (28.0-34.0); Mean Corpuscular Volume 93.9 fl (80-94); Mean Platelet Volume 11.3 fL (7.4-10.4); Monocytes # 0.5 10^3/uL (0.2-0.9); Neutrophils # 5.66 10^3/uL (1.8-7.7); Neutrophils % 71.2 %; Nucleated Red Blood Cells % 0 %; Platelet Count 144 10^3/cmm (130-400); Red Blood Count 2.77 10^6/uL (4.1-5.3); Red Cell Distribution Width 13.4 % (12.1-15.1)
[2022-07-08] MEDS: tizanidine 4 mg Tablet 2 MG PO (06:01)
[2022-07-08 06:02] LABS: Cholesterol 112 mg/dL (0-200); HDL Cholesterol 28 mg/dL (60-100); LDL Cholesterol Calculated 60 mg/dL (50-129); Triglycerides 122 mg/dL (0-150); VLDL Cholestrol Calculation 24 mg/dL (0-30)
[2022-07-08] MEDS: acetaminophen 500 mg Tablet PO (06:02)
[2022-07-08] MEDS: TRAMadol 50 mg Tablet PO (06:02)
[2022-07-08] MEDS: mineral oil ENEMA 133 mL PR (06:03)
[2022-07-08] MEDS: sodium chloride 0.9% 1,000 ML 100 ML IV (06:03)
[2022-07-08 06:12] LABS: Alanine Aminotransferase 7 U/L (0-41); Albumin Level 2.9 g/dL (3.5-5.2); Alkaline Phosphatase 66 U/L (40-130); Aspartate Amino Transferase 14 U/L (0-40); Blood Urea Nitrogen 11 mg/dL (8-23); Calcium 7.8 mg/dL (8.5-10.5); Carbon Dioxide 23 mmol/L (22-29); Chloride 109 mmol/L (98-107); Globulin 2.1 g/dL (1.3-4.6); Glomerular Filtration Rate 96.4 mL/min (90-130); Glucose 96 mg/dL (65-115); Osmolality Calculated 289 mOsm/kg (285-295); Sodium 140 mmol/L (136-145); Total Bilirubin 0.7 mg/dL (0.15-1.2)
[2022-07-08] MEDS: ketorolac 30 mg/mL INJ 15 MG IVP (06:27)
[2022-07-08 06:34] LABS: Estmated Average Glucose 111; Hemoglobin A1C 5.5 % (4.0-6.0)
--- NOTE | 2022-07-08 06:36 | PC.NURSE ---
Pt c/o pain 10/ after receiving all available PRN pain medications. Referred to Dr. Espinal for review, awaiting orders.
--- NOTE | 2022-07-08 06:43 | PC.NURSE ---
Pt received enema per orders. Has had another xlg bloody stool w/small blood clots present.
--- NOTE | 2022-07-08 06:47 | PC.NURSE ---
NO received and noted for Morphine 2mg IVP x 1 dose now.
[2022-07-08] MEDS: morphine 4 mg/mL SDV 1 mL 2 MG IVP (06:51)
--- NOTE | 2022-07-08 08:12 | PC.NURSE ---
Dr. Barrett gave verbal order for dilaudid 1 ml every 3 hours PRN for pain.
[2022-07-08] MEDS: cyanocobalamin 1,000 mcg Tablet 500 MCG PO (08:52)
[2022-07-08] MEDS: pantoprazole 40 mg SDV IVP ×2 (08:52→18:44)
[2022-07-08] MEDS: ferrous gluconate 324 mg Tablet PO ×2 (08:52→18:44)
[2022-07-08] MEDS: gabapentin 300 mg Capsule PO ×3 (08:52→20:27)
[2022-07-08] MEDS: HYDROmorphone 1 mg/mL INJ 1 mL IVP ×2 (08:53→20:16)
[2022-07-08] MEDS: sodium chloride 0.9% (100 ml) 100 ML 125 ML (08:54)
--- NOTE | 2022-07-08 10:47 | P.ANESASSM_ITS ---
Pre-Anesthetic Assessment Height/Weight: Height 1.85 m Weight 88.269 kg Temp Pulse Resp BP Pulse Ox O2 Del Method 97.8 F 95 16 131/76 96 07/08/22 10:30 07/08/22 10:15 07/08/22 10:30 07/08/22 10:30 07/08/22 10:30 07/08/22 08:00 Preop Diagnosis: Bleeding per rectum Operation Date: 07/08/22 10:15 Proposed Procedures p EGD(Not Applicable) - Holden Barrett DO s Sigmoidoscopy(Not Applicable) - Holden Barrett DO Was Beta Sara taken within 24 hours: Yes Was Clonidine taken within 24 hours: N/A Exam alert, oriented x 3, clear to auscultation bilaterally and regular rate & rhythm History/ROS No significant history except as noted Anesthetic Plan ASA status: 3 Anesthesia: Anesthesia Evaluation and MAC Risk of > 500 ml blood loss (7ml/kg in children): Yes, adequate IV access and fluids planned Medications/Allergies Home Medications Medication Instructions Recorded Confirmed Last Taken Type atenolol 50 mg tablet 50 mg PO BEDTIME 11/12/21 07/06/22 1 Day Ago History ~07/05/22 Allergies Allergy/AdvReac Type Severity Reaction Status Date / Time No Known Allergies Allergy Verified 01/27/22 07:40 Current Medications Generic Name Dose Route Start Last Admin Trade Name Asifq PRN Reason Stop Dose Admin Acetaminophen 500 mg 07/06/22 22:48 07/08/22 06:02 Acetaminophen 500 Mg Tablet PO 500 mg Q4H PRN Administration fever Cyanocobalamin 500 mcg 07/08/22 09:00 07/08/22 08:52 Cyanocobalamin 1,000 Mcg Tablet PO 500 mcg DAILY ELIAS Administration Ferrous Gluconate 324 mg 07/07/22 18:00 07/08/22 08:52 Ferrous Gluconate 324 Mg Tablet PO 324 mg BIDWM ELIAS Administration Gabapentin 300 mg 07/07/22 12:20 07/08/22 08:52 Gabapentin 300 Mg Capsule PO 300 mg TID ELIAS Administration Hydromorphone HCl 1 mg 07/08/22 08:10 07/08/22 08:53 Hydromorphone 1 Mg/Ml Inj 1 Ml IVP 1 mg Q3H PRN Administration PAIN Sodium Chloride 1,000 mls @ 100 mls/hr 07/06/22 22:48 07/08/22 06:03 Sodium Chloride 0.9% IV 100 mls/hr .Q10H ELIAS Administration Pantoprazole Sodium 40 mg 07/07/22 09:00 07/08/22 08:52 Pantoprazole 40 Mg Sdv IVP 40 mg BID ELIAS Administration Ropinirole HCl 0.5 mg 07/07/22 21:00 07/07/22 20:24 Ropinirole 0.25 Mg Tablet PO 0.5 mg BEDTIME ELIAS Administration Tizanidine HCl 2 mg 07/07/22 12:16 07/08/22 06:01 Tizanidine 4 Mg Tablet PO 2 mg TID PRN Administration SPASMS Tramadol HCl 50 mg 07/07/22 11:35 07/08/22 06:02 Tramadol 50 Mg Tablet PO 50 mg Q6H PRN Administration MODERATE PAIN PFSH Anesthesia Medical History Diverticulosis large intestine w/o perforation or abscess w/bleeding History of gastric ulcer Hypertension Sciatica of right side Surgical History History of back surgery History of esophagogastroduodenoscopy (EGD) Family History Other Cancer Dementia Denies family history of Diabetes CAD (coronary artery disease) Chronic kidney disease (CKD) Hypertension Stroke Social History Smoking and tobacco status: never smoked Alcohol intake: never Lives independently: Yes Household members: spouse Marital status: Data Anesthesia 07/08/22 05:05 07/08/22 05:05 Short CBC 07/06/22 07/06/22 07/07/22 Range/Units 18:40 21:54 00:35 WBC 16.1 H (4.0-10.0) 10^3/uL Hgb 11.7 10.5 L 9.7 L (11.7-16.6) g/dL Hct 36.0 L 32.4 L 29.4 L (42.0-52.0) % MCV 93.3 (80-94) fl Plt Count 223 (130-400) 10^3/cmm Neut % (Auto) 76.3 % Neut # (Auto) 12.29 H (1.8-7.7) 10^3/uL 07/07/22 07/07/22 07/08/22 Range/Units 03:41 17:40 05:05 WBC 10.5 H 8.0 (4.0-10.0) 10^3/uL Hgb 8.9 L 9.0 L 8.4 L (11.7-16.6) g/dL Hct 27.3 L 27.0 L 26.0 L (42.0-52.0) % MCV 93.2 93.9 (80-94) fl Plt Count 174 144 (130-400) 10^3/cmm Neut % (Auto) 71.3 71.2 % Neut # (Auto) 7.46 5.66 (1.8-7.7) 10^3/uL BMP 07/06/22 07/07/22 07/08/22 18:40 03:41 05:05 Sodium 137 135 L 140 Potassium 3.7 4.0 4.0 Chloride 102 104 109 H Carbon Dioxide 25 24 23 BUN 16 15 11 Creatinine 1.1 0.9 0.8 Glucose 166 H 117 H 96 Calcium 8.6 7.7 L 7.8 L Cardiac Enzymes 07/06/22 07/06/22 07/07/22 Range/Units 18:40 20:35 00:35 Troponin T Baseline 14 (0-15) ng/L Troponin T 120 Minute 14.11 (0-15) ng/L Delta Troponin T 0.11 (0-10) ABS# Troponin T Hi Sens 6Hr 15.95 H (0-15) ng/L Troponin T Hi Sens 6Hr Delta 1.95 (0-12) ng/L Liver Function 07/06/22 07/08/22 Range/Units 18:40 05:05 Total Bilirubin 0.4 0.7 (0.15-1.2) mg/dL AST 18 14 (0-40) U/L ALT 12 7 (0-41) U/L Alkaline Phosphatase 79 66 (40-130) U/L Albumin 3.5 2.9 L (3.5-5.2) g/dL Urine 07/07/22 Range/Units 23:12 Urine Color Yellow (Yellow) Urine Appearance Clear (CLEAR) Urine pH 6 (5-7) Ur Specific [place] 1.010 (1.005-1.030) Urine Protein Neg (Negative) Urine Glucose (UA) Norm (Normal) Urine Ketones Negative (Negative) Urine Nitrate Negative (Negative) Urine Bilirubin Neg (Negative) Ur Leukocyte Esterase Negative (Negative) Blood Bank 07/06/22 19:17 Blood Type O Positive Rho(D) Type Positive Antibody Screen Negative Coags 07/06/22 18:40 PT 14.40 INR 1.09 APTT 22.0 L Cardiac Studies: No Data to Display
--- NOTE | 2022-07-08 10:50 | W.PM.OPSUD ---
Surgery/Procedure H&P Update DATE OF PROCEDURE: July 08, 2022 DATE H&P PERFORMED: 07/07/22 PREOP DIAGNOSIS: Bleeding per rectum PLANNED PROCEDURE: Operation Date: 07/08/22 10:15 Proposed Procedures p EGD(Not Applicable) - Holden Barrett DO s Sigmoidoscopy(Not Applicable) - Holden Barrett DO
[2022-07-08] MEDS: sodium chloride 0.9% 1,000 ML 30 ML IV (12:04)
--- NOTE | 2022-07-08 12:23 | PC.CHAP ---
Pastoral Care Encounter/Spiritual Assessment Type of Contact [] Declined fryer line helper visit [] Patient/Family/Request visit [] Outpatient visit [] Follow-up visit [] Physician referral [] Code/Alert [x] Routine visit [] Staff referral [] Actively dying [] Patient sleeping [] Family support [] [] Out of room [] Palliative care [] [] Receiving care in room [] Pre-surgical visit [] Trauma [] Long length of stay [] ICU visit [] Other: Relational/Emotional Strength [x] Patient feels connected with others/family/visitors/staff [] Distress [] Loneliness/isolation [] Abandonment Spirituality of Patient [x] Person of Joseline [x] Attends Episcopalian of their Joseline [x] Believes in Prayer []x Reads Bible or Advent materials [] There are Spiritual issues to be addressed Geospatial Scientist Interventions [x] Prayer [x] Active listening [x] Non-anxious presence [x] Spiritual/emotional support [] Crisis/trauma care [] Spiritual counseling [] Bereavement support [] Provided bereavement packet [] Provided Bible/devotional materials [] Provided toy/stuffed animal, coloring book to patient or family member [] Provided Communion [] Anointing/Mclean [] Salvation [x] Completed spiritual assessment [] Other: Impact on Illness or Injury [] Angry [] Fearful [] Anxious [] Often cries [] Exhaustion [x] Unable to work [] Unable to attend presybeterian [] Unable to walk/stand [] Unable to read [] Unable to drive [] Unable to eat/drink [] Unable to sleep [] Unable to be with family [] Patient intubated [] Other: Summary patient in pain Time spent with patient 15 min
[2022-07-08 14:54] LABS: Hemoglobin 8.1 g/dL (11.7-16.6)
[2022-07-08] MEDS: ondansetron 2 mg/ML SDV 2 mL 4 MG IVP (15:24)
--- NOTE | 2022-07-08 15:54 | P.PN_ITS ---
Subjective Subjective: Denies any specific area of abdominal pain. Had additional 2 dark bloody bowel movements this morning. Pain in lower back for which he feels he would like to sit up, however, discussed with him currently is to remain on bedrest due to acute blood loss anemia with compression fracture also would want to avoid prolonged period of upright positioning. At this time advised bedrest. Discussed consideration of TLSO brace. Additional conservative measures. Discussed follow-up for improvement. He has appointment with orthopedics set for . Vitals/I&O/Wt Last Vital Signs Temp 97.7 F 07/08/22 13:00 Pulse 100 07/08/22 13:00 Resp 18 07/08/22 13:00 BP 141/86 07/08/22 13:00 Pulse Ox 97 07/08/22 13:00 O2 Del Method 07/08/22 13:00 O2 Flow Rate 4 07/08/22 12:54 07/08/22 07/08/22 07/08/22 06:59 14:59 22:59 Intake Total 963.333 / 3913.333 1460 / 1460 Output Total 800 / 950 Balance 163.333 / 2963.333 1460 / 1460 Weight last 48 hrs Weight 88.269 kg Physical Exam Const: COMMON NORMALS: patient oriented x3 and alert GENERAL APPEARANCE: cooperative ORIENTATION/CONSCIOUSNESS: Yes awake HENMT: COMMON NORMALS: oropharynx normal Neck/C-Spine: COMMON NORMALS: no JVD Resp: COMMON NORMALS: normal respiratory effort and clear to auscultation bilaterally AUSCULTATION: clear to auscultation bilaterally Cardio: COMMON NORMALS: no JVD, regular rhythm, S1 normal heart sound present, S2 normal heart sound present and No murmurs present (Cardio) RHYTHM: regular rhythm HEART SOUNDS: S1 normal heart sound present and S2 normal heart sound present GI: COMMON NORMALS: Normal to inspection, nondistended, normoactive bowel sounds present, Soft to palpation and non-tender PALPATION: Yes Soft to palpation Extremity: COMMON NORMALS: no joint enlargement and no pedal edema Neuro: COMMON NORMALS: patient oriented x3 and moves all extremities SENSORIUM/ORIENTATION: Yes alert Skin: COMMON NORMALS: no rashes or lesions noted GENERAL SKIN EXAM: no rashes or lesions noted Data 07/08/22 14:31 07/08/22 05:05 A&P Assessment and plan (1) Bleeding per rectum: Acute blood loss anemia, additional 1 unit transfusion this morning. Repeat additional transfusion currently as hemoglobin is 8.1. Underwent EGD which showed no bleeding. Colonoscopy showed blood diffusely in the colon without source of bleeding. Bleeding started to have subsided, however, in case of additional bleeding consider CTA for localization. May require transfer for additional work-up with push enteroscopy. Received tranexamic acid. Follow-up hemoglobin again tonight. Bedrest. Continue with Protonix 40 mg twice daily. Continue with clear liquid diet. (2) Pre-syncope: Bed rest. Most likely secondary lower GI bleed leading to orthostatic hypotension. Continue with telemetry. No concerns for CVA. Troponin cycled negative (3) Back pain: Multiple compression fractures in lumbar spine. Mild central canal stenosis L4- L5. Postoperative hardware left side T12-L1. Osteopenia, osteoarthritis, severe. Add lidocaine patch. TLSO brace. Continue Tylenol, tramadol, gabapentin, tizanidine, Dilaudid as needed. (4) Lumbar compression fracture: (5) Sciatica of right side: (6) Diverticulosis large intestine w/o perforation or abscess w/bleeding: (7) Colon polyps: Plan Full code. Clear liquid diet. SCDs for DVT prophylaxis. Attestations Medical Necessity Statement*: Continue admission for assessment management of acute blood loss anemia, GI bleed, back pain with lumbar compression fractures. 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
--- NOTE | 2022-07-08 17:12 | ANE.PACU2 ---
Inpatient post-anesthesia follow up: Airway intact: Yes Vital signs: Temperature 97.9 F Pulse Rate [Orthos tatic 105 Standing Left Brac hial] Pulse Rate [Orthos tatic 81 Sitting Left Brach ial] Pulse Rate [Orthos tatic Lying 77 Left Brachial] Pulse Rate 102 Respiratory Rate 15 Blood Pressure [Or thostatic 128/42 Standing Left Arm] Blood Pressure [Or thostatic 120/68 Sitting Left Arm] Blood Pressure [Or thostatic 116/71 Lying Left Arm] Blood Pressure 119/68 Pulse Oximetry 94 Oxygen Delivery Me thod Room Air Oxygen Flow Rate 4 Fraction of Inspir ed Oxygen Hydration adequate: Yes Nausea and vomiting: No Pain level: 2 Mental status: Baseline
[2022-07-08 19:36] LABS: Hemoglobin 6.6 g/dL (11.7-16.6)
[2022-07-08] MEDS: ropinirole 0.25 mg Tablet 0.5 MG PO (20:27)
[2022-07-08] MEDS: atenolol 50 mg Tablet PO (20:27)
[2022-07-08] MEDS: lidocaine 5% Patch 1 PATCH TOPICAL (20:53)
[2022-07-08] MEDS: sodium chloride 0.9% (100 ml) 100 ML (23:41)
[2022-07-09] VITALS (20 sets, daily range): BP systolic 101–134; BP diastolic 51–78; PULSE 51–74; RESP 15–18; TEMP 36.3–37.5; O2SAT 90–98
[2022-07-09] MEDS: HYDROmorphone 1 mg/mL INJ 1 mL IVP ×4 (01:11→17:12)
[2022-07-09 01:12] LABS: Basophils % 0.2 %; Eosinophils # 0.1 10^3/uL (0.0-0.8); Eosinophils % 0.6 %; Hematocrit 22.1 % (42.0-52.0); Hemoglobin 7.4 g/dL (11.7-16.6); Lymphocytes # 1.9 10^3/uL (0.8-4.8); Lymphocytes % 11.6 %; Mean Corpuscular HGB Conc 33.5 g/dL (30.0-36.0); Mean Corpuscular Hemoglobin 31.6 pg (28.0-34.0); Mean Corpuscular Volume 94.4 fl (80-94); Mean Platelet Volume 11.2 fL (7.4-10.4); Monocytes # 1.1 10^3/uL (0.2-0.9); Monocytes % 6.4 %; Neutrophils % 80.2 %; Nucleated Red Blood Cells % 0 %; Platelet Count 160 10^3/cmm (130-400); Red Blood Count 2.34 10^6/uL (4.1-5.3); White Blood Count 16.4 10^3/uL (4.0-10.0)
--- NOTE | 2022-07-09 01:17 | PC.NURSE ---
Referred pt for review of hemoglobin results. Awaiting orders
--- NOTE | 2022-07-09 01:32 | PC.NURSE ---
NO received and noted to transfuse one more unit of PRBC. Lab and pt notified.
[2022-07-09 01:38] LABS: Alanine Aminotransferase 7 U/L (0-41); Albumin Level 2.6 g/dL (3.5-5.2); Alkaline Phosphatase 54 U/L (40-130); Aspartate Amino Transferase 21 U/L (0-40); Blood Urea Nitrogen 14 mg/dL (8-23); Calcium 7.4 mg/dL (8.5-10.5); Carbon Dioxide 25 mmol/L (22-29); Chloride 111 mmol/L (98-107); Globulin 1.9 g/dL (1.3-4.6); Glomerular Filtration Rate 74.5 mL/min (90-130); Glucose 118 mg/dL (65-115); Osmolality Calculated 296 mOsm/kg (285-295); Sodium 142 mmol/L (136-145); Total Bilirubin 0.7 mg/dL (0.15-1.2); Total Protein 4.5 g/dL (6.6-8.7)
[2022-07-09] MEDS: sodium chloride 0.9% (100 ml) 100 ML (02:36)
--- NOTE | 2022-07-09 05:58 | PC.NURSE ---
Nurse was notified about patients heart rate.
[2022-07-09 06:30] LABS: Hemoglobin 8.6 g/dL (11.7-16.6)
--- NOTE | 2022-07-09 06:37 | PC.NURSE ---
Spoke to pt and his regarding hemoglobin this am. Pt and request to be transferred to a higher level of care w/GI specialty. Charge nurse notified.
[2022-07-09] MEDS: sodium chloride 0.9% 1,000 ML 100 ML IV (08:49)
[2022-07-09] MEDS: cyanocobalamin 1,000 mcg Tablet 500 MCG PO (08:50)
[2022-07-09] MEDS: pantoprazole 40 mg SDV IVP ×2 (08:51→17:12)
[2022-07-09] MEDS: gabapentin 300 mg Capsule PO ×3 (08:51→20:58)
[2022-07-09] MEDS: ferrous gluconate 324 mg Tablet PO ×2 (08:51→17:11)
[2022-07-09] MEDS: lidocaine 5% Patch 1 PATCH TOPICAL ×2 (08:51→20:58)
--- NOTE | 2022-07-09 10:17 | PC.CHAP ---
Pastoral Care Encounter/Spiritual Assessment Type of Contact [] Declined casino banker visit [] Patient/Family/Request visit [] Outpatient visit [] Follow-up visit [] Physician referral [] Code/Alert x[] Routine visit [] Staff referral [] Actively dying [] Patient sleeping [] Family support [] [] Out of room [] Palliative care [] [] Receiving care in room [] Pre-surgical visit [] Trauma [] Long length of stay [] ICU visit [] Other: Relational/Emotional Strength [] Patient feels connected with others/family/visitors/staff [] Distress [] Loneliness/isolation [] Abandonment Spirituality of Patient [] Person of Joseline [] Attends Holiness of their Joseline [] Believes in Prayer [] Reads Bible or Baptism materials [] There are Spiritual issues to be addressed Medical Assistant Per Diem Interventions [] Prayer [] Active listening [] Non-anxious presence [] Spiritual/emotional support [] Crisis/trauma care [] Spiritual counseling [] Bereavement support [] Provided bereavement packet [] Provided Bible/devotional materials [] Provided toy/stuffed animal, coloring book to patient or family member [] Provided Communion [] Anointing/Leslie [] Salvation [] Completed spiritual assessment [] Other: Impact on Illness or Injury [x] Angry [] Fearful [] Anxious [] Often cries [] Exhaustion [] Unable to work [] Unable to attend sabianism [] Unable to walk/stand [] Unable to read [] Unable to drive [] Unable to eat/drink [] Unable to sleep [] Unable to be with family [] Patient intubated [] Other: Summary patient very un happy with service wants to be transfer out contracted front desk manager who contacted doctor Time spent with patient 20 min
[2022-07-09 10:32] LABS: Hemoglobin 8.5 g/dL (11.7-16.6)
--- NOTE | 2022-07-09 12:52 | PM.CONSULT ---
Providers/Reason For Consult Consulting Physician/Specialty*: Ortho Spine Reason for Consult*: back and leg pain Attending Physician: Luis Fernando Garcia Primary Care Provider: Sofia Cassidy History of Present Illness History of Present Illness Renato Reyes is a 66 year old male who reports a long history of back pain as well as leg pain with numbness and tingling. Orthopedic spine was asked to see this gentleman during his hospitalization. He was evaluated in room 276 with family present as well as the nurse. 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 He has had a previous thoracolumbar fusion from T11-L1 following a limb from a tree striking his back. He had surgery by Dr. Corrigan in [place]. He reports steady increase in progression of his back pain with inability to walk distances. Describes numbness and tingling down his legs as is worsened by walking more than a half a mile. If he sits down and rests the symptoms in his legs resolved. He denies any clumsiness or falling. He has been hospitalized for GI bleeds primarily associated with nonsteroidal anti-inflammatory use. He describes equal back and leg symptoms with inability to walk more than half a mile before he has to sit down because of his leg pain. He denies any loss of bowel or bladder control. Describes the pain as aching stabbing type pain in his low back with numbness tingling and weakness into his feet. Rest gives him some temporary relief. He reports mainly pain in the right buttock traveling down the right leg today. Ranks the pain as 5 out of 10 on the pain scale. Made worse with walking standing. He is attempted to do daily stretching exercises at home without much improvement. An extensive review of the patient's past medical history, surgical history, allergies, medications, family history, social history, and review of systems was completed Review of Systems General: Reports: 10 or more systems reviewed and unremarkable except in HPI and below Medications/Allergies Home Medications Medication Instructions Recorded Confirmed Last Taken Type atenolol 50 mg tablet 50 mg PO BEDTIME 11/12/21 07/06/22 1 Day Ago History ~07/05/22 Allergies Allergy/AdvReac Type Severity Reaction Status Date / Time No Known Allergies Allergy Verified 01/27/22 07:40 Current Medications Generic Name Dose Route Start Last Admin Trade Name Freq PRN Reason Stop Dose Admin Acetaminophen 500 mg 07/06/22 22:48 07/08/22 06:02 Acetaminophen 500 Mg Tablet PO 500 mg Q4H PRN Administration fever Atenolol 50 mg 07/08/22 21:00 07/08/22 20:27 Atenolol 50 Mg Tablet PO 50 mg BEDTIME ELIAS Administration Cyanocobalamin 500 mcg 07/08/22 09:00 07/09/22 08:50 Cyanocobalamin 1,000 Mcg Tablet PO 500 mcg DAILY ELIAS Administration Ferrous Gluconate 324 mg 07/07/22 18:00 07/09/22 08:51 Ferrous Gluconate 324 Mg Tablet PO 324 mg BIDWM ELIAS Administration Gabapentin 300 mg 07/07/22 12:20 07/09/22 08:51 Gabapentin 300 Mg Capsule PO 300 mg TID ELIAS Administration Hydromorphone HCl 1 mg 07/08/22 08:10 07/09/22 08:49 Hydromorphone 1 Mg/Ml Inj 1 Ml IVP 1 mg Q3H PRN Administration PAIN Sodium Chloride 1,000 mls @ 100 mls/hr 07/06/22 22:48 07/09/22 08:49 Sodium Chloride 0.9% IV 100 mls/hr .Q10H ELIAS Administration Lidocaine 1 patch 07/08/22 21:00 07/09/22 08:51 Lidocaine 5% Patch TOPICAL 1 patch [id number] ELIAS Administration Ondansetron HCl 4 mg 07/06/22 22:48 07/08/22 15:24 Ondansetron 2 Mg/Ml Sdv 2 Ml IVP 4 mg Q6H PRN Administration NAUSEA AND VOMITING Pantoprazole Sodium 40 mg 07/07/22 09:00 07/09/22 08:51 Pantoprazole 40 Mg Sdv IVP 40 mg BID ELIAS Administration Ropinirole HCl 0.5 mg 07/07/22 21:00 07/08/22 20:27 Ropinirole 0.25 Mg Tablet PO 0.5 mg BEDTIME ELIAS Administration Tizanidine HCl 2 mg 07/07/22 12:16 07/08/22 06:01 Tizanidine 4 Mg Tablet PO 2 mg TID PRN Administration SPASMS Tramadol HCl 50 mg 07/07/22 11:35 07/08/22 06:02 Tramadol 50 Mg Tablet PO 50 mg Q6H PRN Administration MODERATE PAIN PFSH Acute PFSH: Medical History Diverticulosis large intestine w/o perforation or abscess w/bleeding History of gastric ulcer Hypertension Sciatica of right side Surgical History History of back surgery History of esophagogastroduodenoscopy (EGD) Family History Other Cancer Dementia Denies family history of Diabetes CAD (coronary artery disease) Chronic kidney disease (CKD) Hypertension Stroke Social History Smoking and tobacco status: never smoked Alcohol intake: never Lives independently: Yes Household members: spouse Marital status: Vitals/I&O/Wt Last Vital Signs Temp 97.9 F 07/09/22 11:29 Pulse 71 07/09/22 11:29 Resp 16 07/09/22 11:29 BP 134/67 07/09/22 11:29 Pulse Ox 97 07/09/22 11:29 O2 Del Method 07/09/22 11:29 O2 Flow Rate 4 07/08/22 12:54 07/08/22 07/09/22 07/09/22 22:59 06:59 14:59 Intake Total 1050 / 2510 946.5 / 3456.5 586.667 / 586.667 Output Total 450 / 450 Balance 600 / 2060 946.5 / 3006.5 586.667 / 586.667 Physical Exam Narrative: Patient is alert orient x3 has a good general appearance normal mood and affect. Patient presents with an antalgic gait. Demonstrates raising up onto heels and toes with difficulty. Exhibits normal coordination and normal stability. Moderate palpatory and percussion pain throughout the paraspinous musculature of the thoracolumbar spine. No obvious curvature in the forward bend test. Examination reveals normal alignment, normal functional range of motion of the thoracolumbar spine with Flexion to 45 degrees, extends 15 degrees, laterally bends 10 degrees symmetrically. Normal sensation to light touch through all dermatomal layers. Normal sensation light touch down both lower extremities with 5/5 motor strength throughout all motor groups. No palpable pain over the SI joints bilaterally. Negative Felix and Fabere sign. Positive straight leg raise on the right negative on the left. Skin is clear warm with normal sensation to light touch, calves are supple with no medial thigh tenderness, negative Homans' sign. No palpable lymphadenopathy bilaterally. Reflexes are 2+ and symmetric about the knees and Achilles. No hyperreflexia or clonus. Downgoing Babinski's bilaterally. Dorsalis pedis and posterior tibial pulses are 2+. No palpable edema bilaterally. HENMT: COMMON NORMALS: normocephalic and atraumatic HEAD & SCALP: normocephalic and atraumatic Resp: COMMON NORMALS: normal respiratory effort Cardio: COMMON NORMALS: regular rate and regular rhythm RATE: regular rate RHYTHM: regular rhythm GI: COMMON NORMALS: Soft to palpation PALPATION: Yes Soft to palpation : COMMON NORMALS: Yes no CVA tenderness BLADDER/KIDNEY EXAM: Yes no CVA tenderness Back/Pelvis: COMMON NORMALS: no CVA tenderness Psych: COMMON NORMALS: mental status grossly normal and cooperative Data 07/09/22 10:25 07/09/22 00:[address]: Radiologist's impression: CT/CT thoracic spin wo con* [id number] IMPRESSION: 1. Osteopenia and osteoarthritis. 2. Multiple vertebral compression fractures. 3. Orthopedic hardware left side T12-L1 4. Negative for disc herniation, foraminal stenosis, canal stenosis CT/CT lumbar spine wo con* [id number] IMPRESSION: 1. Severe osteopenia and osteoarthritis. 2. Multiple compression fractures in the lumbar spine . 3. Postoperative hardware left-side T12-L1. 4. A large Schmorl's nodes superior endplate L4 5. Mild central canal stenosis L4-L5 . ? A&P Assessment and plan (1) Low back pain radiating to right lower extremity: His previous spinal fusion involved T11-L1. His symptoms seem to be consistent with lumbar stenosis although concerns of multiple fractures through the lumbar spine were most of his pain is. I will set him up for an MRI scan with STIR image we will have him follow-up in the office. Discussed this at length with his the nurse and the patient. Addressed all questions. More than 50% of the time spent with the patient today involved coordination of care, counseling and discussion of conservative versus surgical treatment options. Total amount of time spent with the patient was 32 minutes. 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
--- NOTE | 2022-07-09 14:31 | PM.PN ---
Subjective Subjective: Late entry. Patient seen and examined on 07/09/2022. Reports no abdominal pain and no further bleeding per rectum. Denies nausea or vomiting. Tolerating clear liquids Vitals/I&O/Wt Last Vital Signs Temp 97.9 F 07/10/22 11:43 Pulse 67 07/10/22 11:43 Resp 18 07/10/22 12:08 BP 112/67 07/10/22 11:43 Pulse Ox 97 07/10/22 11:43 O2 Del Method 07/10/22 07:43 O2 Flow Rate 4 07/08/22 12:54 07/09/22 07/10/22 07/10/22 22:59 06:59 14:59 Intake Total 1360 / 2186.667 240 / 2426.667 1775 / 1775 Output Total 450 / 450 Balance 1360 / 2186.667 240 / 2426.667 1325 / 1325 Physical Exam Narrative: General: No acute distress, awake alert and oriented x3 Abdomen: Soft, nontender nondistended no guarding rebound or masses Data 07/10/22 03:37 07/09/22 00:59 A&P Assessment and plan (1) Diverticulosis: (2) GI bleed: (3) Colon polyps: Plan GI soft diet Monitor hemoglobin and vitals He likely was bleeding from a diverticulum. Bleeding had stopped by time of colonoscopy and patient was given TXA x2 I will call the patient in 2 weeks with results of his polyp Repeat colonoscopy in 5 years Attestations Medical Necessity Statement*: Patient needs at least 1 more night in the hospital for monitoring of his hemoglobin and vitals for possible blood transfusion Coding Level of Care Code Acute Safety And Health Consultant for [facility] Fwd Diagnoses Diverticulosis K57.90 GI bleed K92.2 Colon polyps K63.5
[2022-07-09 16:04] LABS: Hemoglobin 8.7 g/dL (11.7-16.6)
--- NOTE | 2022-07-09 18:20 | P.PN_ITS ---
Subjective Subjective: He is not feeling quite as weak. He still bothered by back pain. Awaiting arrangements for TLSO brace, assessment by PT. Has spoken with surgery this morning. No further bloody bowel movements, so far no other bowel movements. Bleeding is considered likely has subsided. Discussed with him in case of additional bleeding at home he may require additional evaluation with possibly push enteroscopy, recommend he still call 911/get to nearest healthcare facility especially if he is actively bleeding. Vitals/I&O/Wt Last Vital Signs Temp 97.8 F 07/09/22 14:58 Pulse 74 07/09/22 14:58 Resp 18 07/09/22 17:12 BP 129/78 07/09/22 14:58 Pulse Ox 98 07/09/22 14:58 O2 Del Method 07/09/22 14:58 O2 Flow Rate 4 07/08/22 12:54 07/09/22 07/09/22 07/09/22 06:59 14:59 22:59 Intake Total 946.5 / 3456.5 826.667 / 826.667 880 / 1706.667 Balance 946.5 / 3006.5 826.667 / 826.667 880 / 1706.667 Physical Exam Narrative: Antalgic positioning on his back. Const: COMMON NORMALS: patient oriented x3 and alert GENERAL APPEARANCE: cooperative ORIENTATION/CONSCIOUSNESS: Yes awake HENMT: COMMON NORMALS: oropharynx normal Neck/C-Spine: COMMON NORMALS: no JVD Resp: COMMON NORMALS: normal respiratory effort and clear to auscultation bilaterally AUSCULTATION: clear to auscultation bilaterally Cardio: COMMON NORMALS: no JVD, regular rhythm, S1 normal heart sound present, S2 normal heart sound present and No murmurs present (Cardio) RHYTHM: regular rhythm HEART SOUNDS: S1 normal heart sound present and S2 normal heart sound present GI: COMMON NORMALS: Normal to inspection, nondistended, normoactive bowel sounds present, Soft to palpation and non-tender PALPATION: Yes Soft to palpation Extremity: COMMON NORMALS: no joint enlargement and no pedal edema Neuro: COMMON NORMALS: patient oriented x3 and moves all extremities SENSORIUM/ORIENTATION: Yes alert Skin: COMMON NORMALS: no rashes or lesions noted GENERAL SKIN EXAM: no rashes or lesions noted Data 07/09/22 15:55 07/09/22 00:59 A&P Assessment and plan (1) Back pain: TLSO brace. PT eval. Follow-up with orthopedics, pain management. Does appear to have osteopenia, possibility of pathological fractures given multiple compression fractures with osteopenia, would benefit from treatment. Reports has had previous bone density scan. Follow-up with primary doctor. Multiple compression fractures in lumbar spine. Mild central canal stenosis L4- L5. Postoperative hardware left side T12-L1. Osteopenia, osteoarthritis, severe. Add lidocaine patch. TLSO brace. Continue Tylenol, tramadol, gabapentin, tizanidine, Dilaudid as needed. (2) Bleeding per rectum: Bleeding so far have subsided. No further bloody or other bowel movements. Hemoglobin stable. Repeat hemoglobin this afternoon 8.7. Has received 4 units RBC total. Underwent EGD which showed no bleeding. Colonoscopy showed blood diffusely in the colon without source of bleeding. Bleeding started to have subsided, however, in case of additional bleeding consider CTA for localization. May require transfer for additional work-up with push enteroscopy. Received tranexamic acid. Follow-up hemoglobin again tonight. Bedrest. Continue with Protonix 40 mg twice daily. Continue with clear liquid diet. (3) Pre-syncope: Bed rest. Most likely secondary lower GI bleed leading to orthostatic hypotension. Continue with telemetry. No concerns for CVA. Troponin cycled negative (4) Lumbar compression fracture: (5) Sciatica of right side: (6) Diverticulosis large intestine w/o perforation or abscess w/bleeding: (7) Colon polyps: Plan Full code. Clear liquid diet. SCDs for DVT prophylaxis. Attestations Medical Necessity Statement*: Continue admission for reassessment of acute GI bleeding, acute blood loss anemia, requiring 4 units RBC transfusion, optimization of control of back pain with compression fractures. Coding Level of Care Code Acute Storage Solutions Architect for g Fwd Diagnoses Back pain M54.9 Bleeding per rectum K62.5 Pre-syncope R55 Lumbar compression fracture S32.000A Sciatica of right side M54.31 Diverticulosis large intestine w/o perforation or abscess w/bleeding K57.31 Colon polyps K63.5
[2022-07-09] MEDS: ropinirole 0.25 mg Tablet 0.5 MG PO (20:57)
[2022-07-09] MEDS: atenolol 50 mg Tablet PO (20:57)
[2022-07-09] MEDS: acetaminophen 500 mg Tablet PO (20:57)
[2022-07-09] MEDS: TRAMadol 50 mg Tablet PO (20:57)
[2022-07-10] VITALS (11 sets, daily range): BP systolic 95–126; BP diastolic 55–75; PULSE 50–67; RESP 16–18; TEMP 36.6–36.7; O2SAT 95–98
[2022-07-10] MEDS: sodium chloride 0.9% 1,000 ML 100 ML IV (00:26)
[2022-07-10] MEDS: HYDROmorphone 1 mg/mL INJ 1 mL IVP ×3 (00:29→12:08)
[2022-07-10] MEDS: TRAMadol 50 mg Tablet PO (04:07)
[2022-07-10] MEDS: acetaminophen 500 mg Tablet PO (04:07)
[2022-07-10 04:11] LABS: Basophils % 0.4 %; Eosinophils # 0.3 10^3/uL (0.0-0.8); Eosinophils % 2.7 %; Hematocrit 26.1 % (42.0-52.0); Hemoglobin 8.4 g/dL (11.7-16.6); Lymphocytes # 2.2 10^3/uL (0.8-4.8); Lymphocytes % 19.4 %; Mean Corpuscular HGB Conc 32.2 g/dL (30.0-36.0); Mean Corpuscular Hemoglobin 31.1 pg (28.0-34.0); Mean Corpuscular Volume 96.7 fl (80-94); Mean Platelet Volume 11.4 fL (7.4-10.4); Monocytes # 0.9 10^3/uL (0.2-0.9); Monocytes % 8.4 %; Neutrophils # 7.35 10^3/uL (1.8-7.7); Neutrophils % 66.3 %; Nucleated Red Blood Cells # 0.1 /100WBC; Nucleated Red Blood Cells % 0.5 %; Platelet Count 164 10^3/cmm (130-400); Red Cell Distribution Width 14.5 % (12.1-15.1); White Blood Count 11.1 10^3/uL (4.0-10.0)
[2022-07-10] MEDS: tizanidine 4 mg Tablet 2 MG PO (08:33)
[2022-07-10] MEDS: pantoprazole 40 mg SDV IVP (08:34)
[2022-07-10] MEDS: cyanocobalamin 1,000 mcg Tablet 500 MCG PO (08:34)
[2022-07-10] MEDS: ferrous gluconate 324 mg Tablet PO (08:35)
[2022-07-10] MEDS: gabapentin 300 mg Capsule PO ×2 (08:35→14:21)
[2022-07-10] MEDS: lidocaine 5% Patch 1 PATCH TOPICAL (08:35)
--- NOTE | 2022-07-10 13:03 | MR_ITS ---
WS: [id number] MRI LUMBAR SPINE NONCONTRAST TECHNIQUE: Sagittal T1, T2 and STIR imaging. Axial T1 and T2 imaging. CLINICAL INFORMATION: back and leg pain COMPARISON: CT lumbar July 07, 2022 FINDINGS: Counting performed from the craniocervical junction. S1 is lumbarized. Fusion at T12-L2 wit h corpectomy at L1. Postoperative changes lower thoracic extending into the upper lumbar spine with bony fusion. LEFT lat eral fixation hardware with corpectomy L1. Chronic appearing endplate compression deformities L3, L4, L5. No significant edema. No retropulsion. L1-L2: Postoperative changes interbody anterior fusion. Spinal canal and foramen are patent. L2-L3: Mild disc bulging with osteophytic ridging. Slight effacement of ventral thecal sac. Mild face t arthropathy. Mild central canal stenosis. Mild RIGHT foraminal narrowing. Mild facet arthropathy. L3-L4: Mild central disc bulging with moderate to severe central canal stenosis. Impingement on the t raversing L4 nerve roots bilaterally. Moderate facet arthropathy. Mild RIGHT foraminal narrowing. LEF T foramen is patent. L4-L5: Mild disc bulging with moderate central canal stenosis. Impingement traversing L5 nerve roots bilaterally. Moderate facet arthropathy. Mild LEFT foraminal narrowing. RIGHT foramen is patent. L5-S1: Central disc bulging with moderate central canal stenosis. Impingement traversing S1 nerve barbara ts bilaterally. Moderate facet arthropathy. Mild RIGHT greater than LEFT foraminal narrowing. S1-S2: S1 is lumbarized. Mild disc bulging with osteophytic ridging. Slight contact of the traversing S2 nerve roots with mild central canal stenosis. Foramen are patent. Mild facet arthropathy. Partially evaluated RIGHT renal cyst measuring 5.3 CM. Mild central canal stenosis on the education counselor imaging cervical spine at C3-C6. Mild thoracic kyphosis. MR/MR lumbar spine wo con* [id number] IMPRESSION: 1. Counting performed from the craniocervical junction. Fusion at T12-L2 with L1 corpectomy. Recommend plain film correlation prior to surgical intervention. S1 is lumbarized. Number convention may differ from prior examinations where c raniocervical junction was not included. 2. Mild central canal stenosis L2-L3. Moderate to severe central canal stenosi s L3-L4. Moderate central canal stenosis L4-L5 and L5-S1. Impingement on the tr aversing nerve roots at these levels in the subarticular recess. 3. LEFT foraminal protrusion L4-L5 with mild to moderate LEFT foraminal narrow ing. 4. Mild bilateral L5-S1 foraminal narrowing. 5. Moderate facet arthropathy L4-L5 and L5-S1.
--- NOTE | 2022-07-10 14:36 | P.PN_ITS ---
Subjective Subjective: Patient seen and examined on 07/09/2022. Reports no abdominal pain and no further bleeding per rectum. Tolerating GI soft diet. No BM positive flatus. Denies nausea or vomiting. Tolerating clear liquids Vitals/I&O/Wt Last Vital Signs Temp 97.9 F 07/10/22 11:43 Pulse 67 07/10/22 11:43 Resp 18 07/10/22 12:08 BP 112/67 07/10/22 11:43 Pulse Ox 97 07/10/22 11:43 O2 Del Method 07/10/22 07:43 O2 Flow Rate 4 07/08/22 12:54 07/09/22 07/10/22 07/10/22 22:59 06:59 14:59 Intake Total 1360 / 2186.667 240 / 2426.667 1775 / 1775 Output Total 450 / 450 Balance 1360 / 2186.667 240 / 2426.667 1325 / 1325 Physical Exam Narrative: General: No acute distress, awake alert and oriented x3 Abdomen: Soft, nontender nondistended no guarding rebound or masses Data 07/10/22 03:37 07/09/22 00:59 A&P Assessment and plan (1) Diverticulosis: (2) GI bleed: (3) Colon polyps: Plan Regular diet Monitor hemoglobin and vitals He likely was bleeding from a diverticulum. Bleeding had stopped by time of colonoscopy and patient was given TXA x2 I will call the patient in 2 weeks with results of his polyp Repeat colonoscopy in 5 years Attestations Medical Necessity Statement*: Further hospitalization per hospitalist Coding Level of Care Code Acute [employer] Consult[facility] for [facility] Fwd Diagnoses Diverticulosis K57.90 GI bleed K92.2 Colon polyps K63.5
[2022-07-10 14:59] LABS: Hematocrit 28.5 % (42.0-52.0); Hemoglobin 8.9 g/dL (11.7-16.6)
--- NOTE | 2022-07-10 15:05 | P.DS_ITS ---
Discharge Providers Date of Admission: 07/08/22 15:54 Date of Discharge: July 10, 2022 Attending Provider at Admission: Martha Espinal MD Attending Provider at Discharge: Luis Fernando Garcia Primary Care Provider: Sofia Cassidy Diagnoses at Discharge Discharge Diagnosis (1) Diverticulosis: Status: Acute (2) GI bleed: Status: Acute (3) Colon polyps: Status: Resolved Reason for Visit Reason for Visit: possible bleeding ulcers Hospital Course Hospital Course 66-year-old gentleman was admitted for assessment management of GI bleeding, with dark blood per rectum, has been weak, lethargic, also with severe lower back pain. On presentation CT abdomen pelvis negative for acute abnormality, but with noted multilevel compression fractures. Noted diverticulosis. Small moderate umbilical hernia containing omentum without bowel. Source of bleeding not immediately clear. Started on PPI. Required total 4 units RBC transfusion with additional bloody bowel movements in the hospital. In addition managed conservatively for pain with compression fractures which was quite severe, persistent. Underwent EGD and colonoscopy without bleeding on EGD. With noted blood but without fresh bleeding on colonoscopy. Suspected diverticular bleed, although bleeding source not identified. In case of additional bleeding may benefit from further assessment possibly with push ente roscopy or capsule endoscopy depending on the situation. Bleeding has subsided. He has had no further bloody bowel movements. Hemoglobin remains steady around 8.5. With regards to back pain and compression fractures additionally was assessed by PT, set up with TLSO brace, lidocaine patch, continued with acetaminophen, tramadol, Dilaudid IV as needed for severe pain. With some improvement yest erday getting up to chair on his own. Please follow-up regarding multiple compression fractures with consideration of osteoporosis and treatment. Avoiding NSAIDs. Surgery will follow up with him regarding polyp results. Repeat colonoscopy in 5 years. Iron level is found high and will need further assessment. Avoid supplementation. B12 level low at 204. Started on oral supplementation but may benefit from B12 injection. Physical Exam Narrative: Accompanied by spouse. Const: COMMON NORMALS: patient oriented x3 and alert GENERAL APPEARANCE: cooperative ORIENTATION/CONSCIOUSNESS: Yes awake HENMT: COMMON NORMALS: oropharynx normal Neck/C-Spine: COMMON NORMALS: no JVD Resp: COMMON NORMALS: normal respiratory effort and clear to auscultation bilaterally AUSCULTATION: clear to auscultation bilaterally Cardio: COMMON NORMALS: no JVD, regular rhythm, S1 normal heart sound present, S2 normal heart sound present and No murmurs present (Cardio) RHYTHM: regular rhythm HEART SOUNDS: S1 normal heart sound present and S2 normal heart sound present GI: COMMON NORMALS: Normal to inspection, nondistended, normoactive bowel sounds present, Soft to palpation and non-tender PALPATION: Yes Soft to palpation Back/Pelvis: OTHER: TLSO in place Extremity: COMMON NORMALS: no joint enlargement and no pedal edema Neuro: COMMON NORMALS: patient oriented x3 and moves all extremities SENSORIUM/ORIENTATION: Yes alert Skin: COMMON NORMALS: no rashes or lesions noted GENERAL SKIN EXAM: no rashes or lesions noted Discharge Data Studies Completed and Pending Completed Studies During Hospitalization Category Date Time Status CT lumbar spine wo con* [id number] Routine Cat Scan 07/07/22 12:[address] thoracic spin wo con* [id number] Routine Cat Scan 07/07/22 12:16 Completed CTA abdomen pelvis [CT angio abdomen pelvis [id number]] Stat Cat Scan 07/06/22 19:06 Completed XR chest 1V portable [id number] Stat Exams 07/06/22 18:40 Completed XR hip RT 1V wo/w pel [id number] Routine Exams 07/07/22 12:16 Completed MR lumbar spine wo con* [id number] Routine MRI 07/10/22 13:03 Completed Pathology: Surgical [PTH] Routine Pth 07/08/22 12:52 Completed Pending at discharge Category Date Time Status Leukocyte Reduced RBC Routine Lab 07/08/22 12:30 Results PRBC [Leukocyte Reduced RBC] Routine Lab 07/07/22 06:05 Results Type and Screen Routine Lab 07/08/22 12:30 Results Type and Screen Stat Lab 07/06/22 19:17 Results Radiology Impressions Chest X-Ray 07/06/22 18:40 IMPRESSION: No acute findings. Abdomen/Pelvis CTA 07/06/22 19:06 IMPRESSION: 1. Negative for acute inflammatory process in the abdomen or pelvis. 2. Right kidney cyst, negative for follow-up advised. 3. Lumbar spine surgical hardware in place at T11, T12 and T1. 4. L2, L3 and L4 likely chronic compression fractures without retropulsion of bony fragments or spinal canal narrowing. 5. Diverticulosis without diverticulitis. 6. Small to moderate umbilical hernia containing omentum without bowel. COMMENTS: Consistent with the [employer]'s Incidental Findings Committee white paper (J Am Jason Radiol 2018): Any incidental renal lesion less than 1 cm or classified as too small to characterize, or any incidental cystic renal lesion characterized as simple-appearing, is likely benign. No follow-up imaging is recommended for these lesions per consensus recommendations based on imaging criteria. ADDENDUM: 07/06/22 2007 Exam is a CTA of the abdomen and pelvis. CTA images of the entire chest were not included. Hip X-Ray 07/07/22 12:16 IMPRESSION: No acute findings. Lumbar Spine CT 07/07/22 12:16 IMPRESSION: 1. Severe osteopenia and osteoarthritis. 2. Multiple compression fractures in the lumbar spine . 3. Postoperative hardware left-side T12-L1. 4. A large Schmorl's nodes superior endplate L4 5. Mild central canal stenosis L4-L5 . Thoracic Spine CT 07/07/22 12:16 IMPRESSION: 1. Osteopenia and osteoarthritis. 2. Multiple vertebral compression fractures. 3. Orthopedic hardware left side T12-L1 4. Negative for disc herniation, foraminal stenosis, canal stenosis Lumbar Spine MRI 07/10/22 13:03 IMPRESSION: 1. Counting performed from the craniocervical junction. Fusion at T12-L2 with L1 corpectomy. Recommend plain film correlation prior to surgical intervention. S1 is lumbarized. Number convention may differ from prior examinations where craniocervical junction was not included. 2. Mild central canal stenosis L2-L3. Moderate to severe central canal stenosis L3-L4. Moderate central canal stenosis L4-L5 and L5-S1. Impingement on the traversing nerve roots at these levels in the subarticular recess. 3. LEFT foraminal protrusion L4-L5 with mild to moderate LEFT foraminal narrowing. 4. Mild bilateral L5-S1 foraminal narrowing. 5. Moderate facet arthropathy L4-L5 and L5-S1. Laboratory Results WBC 11.1 10^3/uL (4.0-10.0) H 07/10/22 03:37 RBC 2.70 10^6/uL (4.1-5.3) L 07/10/22 03:37 Hgb 8.9 g/dL (11.7-16.6) L 07/10/22 14:36 Hct 28.5 % (42.0-52.0) L 07/10/22 14:36 MCV 96.7 fl (80-94) H 07/10/22 03:37 MCH 31.1 pg (28.0-34.0) 07/10/22 03:37 MCHC 32.2 g/dL (30.0-36.0) 07/10/22 03:37 RDW 14.5 % (12.1-15.1) 07/10/22 03:37 Plt Count 164 10^3/cmm (130-400) 07/10/22 03:37 MPV 11.4 fL (7.4-10.4) H 07/10/22 03:37 Neut % (Auto) 66.3 % 07/10/22 03:37 Lymph % (Auto) 19.4 % 07/10/22 03:37 [place] % (Auto) 8.4 % 07/10/22 03:37 Eos % (Auto) 2.7 % 07/10/22 03:37 Baso % (Auto) 0.4 % 07/10/22 03:37 Neut # (Auto) 7.35 10^3/uL (1.8-7.7) 07/10/22 03:37 Lymph # (Auto) 2.2 10^3/uL (0.8-4.8) 07/10/22 03:37 [place] # (Auto) 0.9 10^3/uL (0.2-0.9) 07/10/22 03:37 Eos # (Auto) 0.3 10^3/uL (0.0-0.8) 07/10/22 03:37 Baso # (Auto) 0.0 10^3/uL (0.0-0.1) 07/10/22 03:37 Nucleated RBC % (auto) 0.5 % 07/10/22 03:37 Nucleated RBCs # 0.1 /100WBC 07/10/22 03:37 PT 14.40 SECONDS (12.1-14.9) 07/06/22 18:40 INR 1.09 (0.8-1.2) 07/06/22 18:40 APTT 22.0 SECONDS (23.9-36.7) L 07/06/22 18:40 Sodium 142 mmol/L (136-145) 07/09/22 00:59 Potassium 5.0 mmol/L (3.5-5.1) 07/09/22 00:59 Chloride 111 mmol/L (98-107) H 07/09/22 00:59 Carbon Dioxide 25 mmol/L (22-29) 07/09/22 00:59 Anion Gap 11.0 (5-19) 07/09/22 00:59 BUN 14 mg/dL (8-23) 07/09/22 00:59 Creatinine 1.0 mg/dL (0.7-1.2) 07/09/22 00:59 GFR Calculation 74.5 mL/min (90-130) L 07/09/22 00:59 Glucose 118 mg/dL (65-115) H 07/09/22 00:59 Estimat Average Glucose 111 07/08/22 05:05 Hemoglobin A1c 5.5 % (4.0-6.0) 07/08/22 05:05 Calculated Osmolality 296 mOsm/kg (285-295) H 07/09/22 00:59 Lactate 1.5 mmol/L (0.5-2.2) 07/06/22 19:17 Calcium 7.4 mg/dL (8.5-10.5) L 07/09/22 00:59 Phosphorus 3.6 mg/dL (2.5-4.5) 07/07/22 03:41 Magnesium 2.0 mg/dL (1.7-2.3) 07/07/22 03:41 Iron 256 ug/dL (59-158) H 07/07/22 17:40 TIBC 272.54488 mcg/dl 07/07/22 17:40 % Saturation 93.0 % (20-50) H 07/07/22 17:40 Unsat Iron Binding < 17 ug/dL (112-347) L 07/07/22 17:40 Total Bilirubin 0.7 mg/dL (0.15-1.2) 07/09/22 00:59 AST 21 U/L (0-40) 07/09/22 00:59 ALT 7 U/L (0-41) 07/09/22 00:59 Alkaline Phosphatase 54 U/L (40-130) 07/09/22 00:59 Troponin T Baseline 14 ng/L (0-15) 07/06/22 18:40 Troponin T 120 Minute 14.11 ng/L (0-15) 07/06/22 20:35 Delta Troponin T 0.11 ABS# (0-10) 07/06/22 20:35 Troponin T Hi Sens 6Hr 15.95 ng/L (0-15) H 07/07/22 00:35 Troponin T Hi Sens 6Hr Delta 1.95 ng/L (0-12) 07/07/22 00:35 Total Protein 4.5 g/dL (6.6-8.7) L 07/09/22 00:59 Albumin 2.6 g/dL (3.5-5.2) L 07/09/22 00:59 Globulin 1.9 g/dL (1.3-4.6) 07/09/22 00:59 Triglycerides 122 mg/dL (0-150) 07/08/22 05:05 Cholesterol 112 mg/dL (0-200) 07/08/22 05:05 LDL Cholesterol, Calc 60 mg/dL (50-129) 07/08/22 05:05 Total VLDL Cholesterol 24 mg/dL (0-30) 07/08/22 05:05 HDL Cholesterol 28 mg/dL (60-100) L 07/08/22 05:05 Cholesterol/HDL Ratio 4.00 mg/dL (1.0-5.00) 07/08/22 05:05 Lipase 18 U/L (13-60) 07/06/22 18:40 Vitamin B12 204 pg/mL (232-1245) L 07/07/22 17:40 Folate 7.4 ng/mL (4.5-32.2) 07/07/22 17:40 TSH 0.68 uIU/mL (0.27-4.20) 07/07/22 17:40 Urine Color Yellow (Yellow) 07/07/22 23:12 Urine Appearance Clear (CLEAR) 07/07/22 23:12 Urine pH 6 (5-7) 07/07/22 23:12 Ur Specific [place] 1.010 (1.005-1.030) 07/07/22 23:12 Urine Protein Neg (Negative) 07/07/22 23:12 Urine Glucose (UA) Norm (Normal) 07/07/22 23:12 Urine Ketones Negative (Negative) 07/07/22 23:12 Urine Blood Neg (Negative) 07/07/22 23:12 Urine Nitrate Negative (Negative) 07/07/22 23:12 Urine Bilirubin Neg (Negative) 07/07/22 23:12 Urine Urobilinogen Neg mg/dL (Negative) 07/07/22 23:12 Ur Leukocyte Esterase Negative (Negative) 07/07/22 23:12 Blood Type O Positive 07/08/22 12:30 Rho(D) Type Positive 07/08/22 12:30 Antibody Screen Negative 07/08/22 12:30 Crossmatch See Detail 07/08/22 12:30 Vitals Last Vital Signs Temp 98.0 F 07/10/22 14:50 Pulse 58 L 07/10/22 14:50 Resp 18 07/10/22 14:50 BP 126/75 07/10/22 14:50 Pulse Ox 98 07/10/22 14:50 O2 Del Method 07/10/22 07:43 O2 Flow Rate 4 07/08/22 12:54 Discharge Plan Discharge Patient Disposition: Home Condition: Stable Prescriptions: New tizanidine 4 mg Tablet 2 mg PO TID PRN (Reason: Spasms) Qty: 30 0RF Vitamin B-12 1,000 mcg Tablet 500 mcg PO DAILY Qty: 90 0RF lidocaine 5 % Adhesive Patch,Medicated 1 patch topical [id number] Qty: 14 0RF gabapentin 300 mg Capsule 300 mg PO TID Qty: 270 0RF acetaminophen 500 mg Tablet 500 mg PO Q4H PRN (Reason: fever) Qty: 90 0RF pantoprazole 40 mg tablet,delayed release (DR/EC) 40 mg PO DAILY 42 Days Qty: 42 0RF hydrocodone-acetaminophen 5-325 mg tablet 1 tab PO Q6H PRN (Reason: pain, severe) Qty: 20 0RF Discontinued atenolol 50 mg tablet 50 mg PO BEDTIME Discharge Orders: Discharge Order (Routine); Ordered 07/10/22 Ordered By: Luis Fernando Garcia Referrals: Holden Barrett DO [Physician] - 2 weeks (Tele) Sofia Cassidy FNP [Primary Care Provider] - 07/16/22 11:00 am Discharge Diet: GI Soft Discharge Activity: Limit activity as instructed and As per PT/OT instructions Patient Instructions: Hydrocodone/Acetaminophen (By mouth), Gabapentin (By mouth), Tizanidine (By mouth), Pantoprazole (By mouth), GI Bleeding, Vertebral Compression Fracture (GEN), Thoracolumbosacral Orthosis (GEN), GI Discharge Instructions, Opioid Safety Activity Restrictions/Additional Instructions: Follow-up with your primary doctor for reassessment of blood counts following GI bleed, acute blood loss anemia. In case of recurrence of bleeding seek medical attention immediately. Once stabilized you may need additional ablation with push endoscopy to assess for source of bleeding not visualized on EGD or colonoscopy. Follow-up with your primary doctor regarding high iron level. This will need further work-up. Avoid iron supplement. Follow-up with your primary doctor regarding low B12 level. Follow-up with your primary doctor regarding osteoporosis treatment initiation due to multiple compression fractures. Maintain TLSO brace, gentle mobilization, multimodal pain control measures. Follow-up outpatient in 1 to 2 weeks in [facility] with Dr Camacho. Discharge Attestations Time Spent in Discharge Care*: greater than 30 min Quality Metrics Clinical Quality Measures [ No reported AMI, CVA or VTE this stay] Coding Level of Care Code Acute [facility] note Diagnoses Diverticulosis K57.90 GI bleed K92.2 Colon polyps K63.5
== END 2022-07-10 15:01 | disposition home or self-care (01) | DRG 378 ==
LOC: ER 22:07 → MEDSURG 22:25
PROVIDERS: Student in an Organized Health Care Education/Training Program; Surgery; Admitting Provider Internal Medicine; Emergency Provider Emergency Medicine; PCP Nurse Practitioner Family; Visit Provider Internal Medicine
PROC: 0DJ08ZZ Inspection of Upper Intestinal Tract, Via Natural or Artificial Opening Endoscopic (ICD-10-PCS; CPT 43235; principal; 2022-07-08 10:15)
PROC: 0DJD8ZZ Inspection of Lower Intestinal Tract, Via Natural or Artificial Opening Endoscopic (ICD-10-PCS; CPT 45330; 2022-07-08 10:15)
DX: K57.31 Diverticulosis of large intestine without perforation or abscess with bleeding (principal); D62 Acute posthemorrhagic anemia; K64.4 Residual hemorrhoidal skin tags; I10 Essential (primary) hypertension; M54.41 Lumbago with sciatica, right side; M48.061 Spinal stenosis, lumbar region without neurogenic claudication; K42.9 Umbilical hernia without obstruction or gangrene; Z98.1 Arthrodesis status; K63.5 Polyp of colon; M48.54XD Collapsed vertebra, not elsewhere classified, thoracic region, subsequent encounter for fracture with routine healing; M48.56XD Collapsed vertebra, not elsewhere classified, lumbar region, subsequent encounter for fracture with routine healing; I95.1 Orthostatic hypotension
CPT/HCPCS: 36415; 36430; 43235; 45385; 71045; 72128; 72131; 72148; 73501; 74174; 80048; 80053; 80061; 81003; 82607; 82746; 83036; 83540; 83550; 83605; 83690; 83735; 84100; 84443; 84484; 85014; 85018; 85025; 85610; 85730; 86850; 86900; 86920; 88305; 93005; 96361; 96372; 96374; 97161; 97760; 99285; C9113; G0378; J1170; J1885; J2270; J2405; J2704; J3420; J7030; L0456; P9016; Q9967

== ENCOUNTER → 2022-07-16 15:00 | Outpatient (BNVA) | payer MEDICARE, SELFPAY | PROVIDERS: PCP Nurse Practitioner Family; Visit Provider Orthopaedic Surgery | DX: M54.50 Low back pain, unspecified (principal); M48.56XA Collapsed vertebra, not elsewhere classified, lumbar region, initial encounter for fracture; M47.896 Other spondylosis, lumbar region | CPT/HCPCS: 72120; 99214 ==

== ENCOUNTER → 2022-08-06 10:13 | Outpatient (BNVA) | payer MEDICARE, SELFPAY | PROVIDERS: PCP Nurse Practitioner Family; Referring Provider Orthopaedic Surgery; Visit Provider Anesthesiology Pain Medicine | DX: M48.062 Spinal stenosis, lumbar region with neurogenic claudication (principal); M79.604 Pain in right leg; S32.000A Wedge compression fracture of unspecified lumbar vertebra, initial encounter for closed fracture; Z98.1 Arthrodesis status; X58.XXXA Exposure to other specified factors, initial encounter | CPT/HCPCS: 99205 ==

== ENCOUNTER → 2022-08-13 14:16 | Outpatient (BNVA) | payer MEDICARE, SELFPAY | PROVIDERS: PCP Nurse Practitioner Family; Visit Provider Anesthesiology Pain Medicine | DX: M54.16 Radiculopathy, lumbar region (principal) | CPT/HCPCS: 64483; 64484 ==

== ENCOUNTER → 2022-09-05 14:12 | Outpatient (BNVA) | payer MEDICARE, SELFPAY | PROVIDERS: PCP Nurse Practitioner Family; Visit Provider Anesthesiology Pain Medicine | DX: M54.16 Radiculopathy, lumbar region (principal) | CPT/HCPCS: 64483; 64484; J1100; J3490 ==

== ENCOUNTER → 2022-09-18 10:15 | Outpatient (BNVA) | payer MEDICARE, SELFPAY | PROVIDERS: PCP Nurse Practitioner Family; Visit Provider Anesthesiology Pain Medicine | DX: M48.062 Spinal stenosis, lumbar region with neurogenic claudication (principal); M79.604 Pain in right leg; S32.000A Wedge compression fracture of unspecified lumbar vertebra, initial encounter for closed fracture; X58.XXXA Exposure to other specified factors, initial encounter; Z98.1 Arthrodesis status | CPT/HCPCS: 99213 ==

== ENCOUNTER → 2023-01-01 09:39 | Outpatient (BNVA) | payer MEDICARE, SELFPAY | PROVIDERS: PCP Nurse Practitioner Family; Visit Provider Anesthesiology Pain Medicine | DX: M48.062 Spinal stenosis, lumbar region with neurogenic claudication (principal); M79.604 Pain in right leg; Z98.1 Arthrodesis status; S32.000A Wedge compression fracture of unspecified lumbar vertebra, initial encounter for closed fracture; X58.XXXA Exposure to other specified factors, initial encounter | CPT/HCPCS: 99215 ==

== ENCOUNTER → 2023-01-15 10:12 | Outpatient (BNVA) | payer MEDICARE, SELFPAY | PROVIDERS: PCP Family Medicine; Visit Provider Family Medicine | DX: I10 Essential (primary) hypertension (principal); K21.9 Gastro-esophageal reflux disease without esophagitis; K57.31 Diverticulosis of large intestine without perforation or abscess with bleeding; K92.2 Gastrointestinal hemorrhage, unspecified; E83.52 Hypercalcemia; Z12.5 Encounter for screening for malignant neoplasm of prostate; K62.5 Hemorrhage of anus and rectum | CPT/HCPCS: 80053; 80061; 82306; 82607; 82728; 82746; 83540; 84443; 85025; G0103 ==

== ENCOUNTER → 2023-10-29 09:30 | Outpatient (BNVA) | payer OTHER, SELFPAY | PROVIDERS: PCP Family Medicine; Visit Provider Family Medicine | DX: I10 Essential (primary) hypertension (principal); D64.9 Anemia, unspecified; K21.9 Gastro-esophageal reflux disease without esophagitis; Z12.5 Encounter for screening for malignant neoplasm of prostate | CPT/HCPCS: 80053; 80061; 83036; 84443; 85025; G0103 ==

== ENCOUNTER 2024-08-20 11:02 | Emergency (ER) | payer MEDICARE, SELFPAY ==
[2024-08-20 11:27] VITALS: BP 130/85; PULSE 90; RESP 16; TEMP 36.8; O2SAT 98; BMI 26.4
[2024-08-20 11:54] LABS: Basophils # 0.1 10^3/uL (0.0-0.1); Basophils % 0.6 %; Eosinophils # 0.1 10^3/uL (0.0-0.8); Eosinophils % 0.6 %; Hematocrit 39.4 % (37-53); Lymphocytes # 1.2 10^3/uL (0.8-4.8); Lymphocytes % 13.4 %; Mean Corpuscular Hemoglobin 30.5 pg (27-33); Mean Corpuscular Volume 92.5 fl (82-101); Mean Platelet Volume 10.3 fL (7.4-10.4); Monocytes # 0.5 10^3/uL (0.2-0.9); Monocytes % 5.7 %; Neutrophils % 79.5 %; Nucleated Red Blood Cells % 0 %; Platelet Count 275 10^3/cmm (157-399); Red Blood Count 4.26 10^6/uL (3.85-5.65); Red Cell Distribution Width 12.8 % (12.1-15.1); White Blood Count 9.05 10^3/uL (3.29-11.43)
[2024-08-20 12:06] LABS: INR 0.96 (0.8-1.2)
[2024-08-20 12:10] LABS: Alanine Aminotransferase < 5 U/L (0-41); Alkaline Phosphatase 121 U/L (40-130); Anion Gap 15.5 (5-19); Aspartate Amino Transferase 19 U/L (0-40); Blood Urea Nitrogen 12 mg/dL (8-23); Calcium 8.7 mg/dL (8.5-10.5); Carbon Dioxide 25 mmol/L (22-29); Chloride 98 mmol/L (98-107); Creatinine Clr Calc Pharmacy 83.0574; Globulin 2.8 g/dL (1.3-4.6); Glomerular Filtration Rate 74.1 mL/min (90-130); Glucose 144 mg/dL (65-115); Osmolality Calculated 280 mOsm/kg (285-295); Potassium 4.5 mmol/L (3.5-5.1); Sodium 134 mmol/L (136-145); Total Bilirubin 0.6 mg/dL (0.15-1.2); Total Protein 6.8 g/dL (6.6-8.7)
--- NOTE | 2024-08-20 12:25 | CTR_ITS ---
PROCEDURE INFORMATION: Exam: CT Abdomen And Pelvis With Contrast Exam date and time: 08/20/2024 1:08 PM Age: 68 years old Clinical indication: Other: Bloody stool; Prior surgery; Surgery date: 6+ months; Surgery type: Back; PT states that he started pooping blood this morning. PT states it started out with bright red blood and brown stool but it has since turned into just bright red blood. PT has had 2 gi bleeds in the past. PT does have hemrhhoids and diverticulitis TECHNIQUE: Imaging protocol: Computed tomography of the abdomen and pelvis with contrast. Sagittal and coronal reformatted images were also reviewed. Radiation optimization: All CT scans at this facility use at least one of these dose optimization techniques: automated exposure control; mA and/or kV adjustment per patient size (includes targeted exams where dose is matched to clinical indication); or iterative reconstruction. Contrast material: OMNI 350; Contrast volume: 100 ml; Contrast route: INTRAVENOUS (IV); COMPARISON: CT angio abdomen pelvis [id number] 07/06/2022 7:26 PM RADIATION DOSE METRICS: Total DLP (mGy-cm): 641.99 FINDINGS: Lungs: Visualized lungs are clear. Pleural spaces: No pleural effusion. Heart: Stable mild enlargement of the visualized portions of the heart. Coronary arteries: Moderate atherosclerotic calcification in the coronary arteries. Liver: The liver is unremarkable. Gallbladder and biliary ducts: The gallbladder is unremarkable. No biliary ductal dilatation. Pancreas: Stable mild atrophy of the pancreatic parenchyma. No pancreatic ductal dilatation. Spleen: Stable calcified granulomas in the spleen. Adrenal glands: The right and left adrenal glands are unremarkable. Kidneys and ureters: Stable minimally complex cyst with scattered areas of focal wall calcification in the right kidney measuring 10.8 cm, consistent with a Bosniak type 2 cyst (series 4, image 29). Stable subcentimeter hypodense foci in both right and left kidneys that are too small to characterize, however likely represent small cysts. The right and left ureters are unremarkable. Stomach and bowel: Numerous diverticula throughout the colon. No evidence for diverticulitis. No acute abnormality in the stomach, small bowel, or colon. No evidence for gastrointestinal bleed. Appendix: The appendix is visualized and is unremarkable. No findings to suggest acute appendicitis. The appendix is visualized and is unremarkable. No findings to suggest acute appendicitis. Intraperitoneal space: Surgical clips in the epigastric region. Vasculature: Stable mild to moderate atherosclerotic calcifications in the visualized arteries. No evidence for aortic aneurysm or aortic dissection. Hepatic veins, portal veins, splenic vein, and SMV are patent. Lymph nodes: No lymphadenopathy. Urinary bladder: Diffuse, mild bladder wall thickening. Reproductive: Unremarkable as visualized. Bones/joints: Bones are diffusely osteopenic. Degenerative changes in the spine, sacroiliac joints, and hips. Stable old, moderate compression deformities of T10, L3, and L4. Moderate to severe loss of L2 vertebral body height, increased compared with the previous study.. There is also increasing sclerosis and a fracture line visible, suspicious for an acute/subacute fracture. There is a small paravertebral soft tissue hematoma at L2. Stable changes consistent with a previous fusion at T11 through L1. Stable defect in the left iliac wing, likely due to a prior bone graft procedure. Soft tissues: No acute abnormality in the extra-abdominal soft tissues. Stable small, fat-containing umbilical hernia. No evidence for strangulation. CT/CT abdomen pelvis w con* [id number] IMPRESSION: 1. Moderate to severe loss of L2 vertebral body height, increased compared with the previous study.. There is also increasing sclerosis and a fracture line visible, suspicious for an acute/subacute fracture. There is a small paravertebral soft tissue hematoma at L2. 2. No evidence for gastrointestinal bleed. Nuclear medicine imaging with tagged red blood cell scan may be obtained for further evaluation if clinical concern for gastrointestinal bleed persists. 3. Diffuse, mild bladder wall thickening. In the correct clinical setting, this may suggest cystitis. Recommend correlation with laboratory findings. Alternatively, this may be secondary to chronic outlet obstruction. 4. Colonic diverticulosis. No evidence for diverticulitis. 5. Incidental/nonacute findings are listed in the report.
--- NOTE | 2024-08-20 12:32 | ED_ITS ---
HPI - GI Bleed 2 General: Chief complaint: GI Bleed Stated complaint: bloody stool Time Seen by Provider: 08/20/24 12:16 Source: patient Mode of arrival: ambulatory Limitations: no limitations History of Present Illness: 68-year-old male who states has had a hi story of GI bleeds in the past he states he had a colonoscopy in that showed hemorrhoids along with diverticulosis states this morning had a bowel movement that was partially stool and blood then had another bowel movement of bright red blood. He states he has felt completely fine he has had no weakness denies any pain denies any vomiting states no fever states he feels his normal self he denies any worse improved factors Related Data Home Medications Medication Instructions Recorded Confirmed atenolol 50 mg tablet 50 mg PO QPM 08/20/24 08/20/24 mupirocin 2 % topical ointment 1 applic topical TID PRN Skin 08/20/24 08/20/24 Irritation Allergies Allergy/AdvReac Type Severity Reaction Status Date / Time No Known Allergies Allergy Verified 08/20/24 11:27 PFSH ED 2 PFSH: Medical History Diverticulosis Sciatica of right side Hypertension History of gastric ulcer Diverticulosis large intestine w/o perforation or abscess w/bleeding Surgical History History of back surgery History of esophagogastroduodenoscopy (EGD) Family History Other Cancer Dementia Denies family history of Diabetes CAD (coronary artery disease) Chronic kidney disease (CKD) Hypertension Stroke Social History Smoking and tobacco/nicotine status: never used tobacco/nicotine Second hand smoke exposure: No Alcohol intake: never Substance/Drug Use: never Lives independently: Yes Household members: spouse Marital status: Physical Exam 2 Const: COMMON NORMALS: no acute distress, patient oriented x3 and healthy appearing HENMT: COMMON NORMALS: normocephalic and atraumatic HEAD & SCALP: n ormocephalic and atraumatic Eye: COMMON NORMALS: conjunctivae normal CONJUNCTIVA: Yes conjunctivae normal Neck/C-Spine: COMMON NORMALS: full ROM and supple Chest: COMMONS NORMALS: normal inspection of the chest Resp: COMMON NORMALS: normal respiratory effort, No retractions, No use of accessory muscles and clear to auscultation bilaterally AUSCULTATION: clear to auscultation bilaterally Cardio: COMMON NORMALS: regular rate, regular rhythm and No murmurs present (Cardio) RATE: regular rate RHYTHM: regular rhythm GI: COMMON NORMALS: Normal to inspection, nondistended, normoactive bowel sounds present, Soft to palpation, non-tender and no masses PALPATION: Yes Soft to palpation OTHER: Does have some slight small amount of bright red blood on rectal exam does have a large hemorrhoid as well Extremity: COMMON NORMALS: normal to inspection and full ROM Neuro: COMMON NORMALS: patient oriented x3, moves all extremities and no focal motor deficits Psych: COMMON NORMALS: mental status grossly normal, Normal thought process present and cooperative THOUGHT PROCESS: Normal thought process present Skin: COMMON NORMALS: no rashes or lesions noted and no wounds GENERAL SKIN EXAM: no rashes or lesions noted Course 2 Vital Signs: Vital signs: Vital Signs Temperature 98.2 F 08/20/24 11:27 Pulse Rate 68 08/20/24 14:11 Respiratory Rate 16 08/20/24 11:27 Blood Pressure 119/70 08/20/24 14:11 Pulse Oximetry 96 08/20/24 14:11 MDM - GI Bleed Medical Decision Making Patient presents with GI bleed likely from his hemorrhoids or slight diverticulosis. He is not anemic he is has no pain or syncope did give him 1 dose of TXA he stable for discharge follow-up PCP return if worsening. Medical Records I reviewed the patient's medical records. Lab Data I reviewed the patient's lab results. 08/20/24 13:48 08/20/24 11:38 Radiology Impressions Abdomen/Pelvis CT 08/20/24 12:25 IMPRESSION: 1. Moderate to severe loss of L2 vertebral body height, increased compared with the previous study.. There is also increasing sclerosis and a fracture line visible, suspicious for an acute/subacute fracture. There is a small paravertebral soft tissue hematoma at L2. 2. No evidence for gastrointestinal bleed. Nuclear medicine imaging with tagged red blood cell scan may be obtained for further evaluation if clinical concern for gastrointestinal bleed persists. 3. Diffuse, mild bladder wall thickening. In the correct clinical setting, this may suggest cystitis. Recommend correlation with laboratory findings. Alternatively, this may be secondary to chronic outlet obstruction. 4. Colonic diverticulosis. No evidence for diverticulitis. 5. Incidental/nonacute findings are listed in the report. ADDENDUM: 08/20/24 1348 Urgent results were discussed with TRISH Fox on 08/20/2024 at 1:46 PM [facility]. Laboratory Results WBC 9.05 10^3/uL (3.29-11.43) 08/20/24 11:38 RBC 4.26 10^6/uL (3.85-5.65) 08/20/24 11:38 Hgb 11.90 g/dL (11.27-16.99) 08/20/24 13:48 Hct 36.3 % (37-53) L 08/20/24 13:48 MCV 92.5 fl (82-101) 08/20/24 11:38 MCH 30.5 pg (27-33) 08/20/24 11:38 MCHC 33.0 g/dL (30-55) 08/20/24 11:38 RDW 12.8 % (12.1-15.1) 08/20/24 11:38 Plt Count 275 10^3/cmm (157-399) 08/20/24 11:38 MPV 10.3 fL (7.4-10.4) 08/20/24 11:38 Neut % (Auto) 79.5 % 08/20/24 11:38 Lymph % (Auto) 13.4 % 08/20/24 11:38 [place] % (Auto) 5.7 % 08/20/24 11:38 Eos % (Auto) 0.6 % 08/20/24 11:38 Baso % (Auto) 0.6 % 08/20/24 11:38 Neut # (Auto) 7.20 10^3/uL (1.8-7.7) 08/20/24 11:38 Lymph # (Auto) 1.2 10^3/uL (0.8-4.8) 08/20/24 11:38 [place] # (Auto) 0.5 10^3/uL (0.2-0.9) 08/20/24 11:38 Eos # (Auto) 0.1 10^3/uL (0.0-0.8) 08/20/24 11:38 Baso # (Auto) 0.1 10^3/uL (0.0-0.1) 08/20/24 11:38 Nucleated RBC % (auto) 0 % 08/20/24 11:38 Nucleated RBCs # 0.0 /100WBC 08/20/24 11:38 PT 13.50 SECONDS (12.1-14.9) 08/20/24 11:38 INR 0.96 (0.8-1.2) 08/20/24 11:38 Sodium 134 mmol/L (136-145) L 08/20/24 11:38 Potassium 4.5 mmol/L (3.5-5.1) 08/20/24 11:38 Chloride 98 mmol/L (98-107) 08/20/24 11:38 Carbon Dioxide 25 mmol/L (22-29) 08/20/24 11:38 Anion Gap 15.5 (5-19) 08/20/24 11:38 BUN 12 mg/dL (8-23) 08/20/24 11:38 Creatinine 1.0 mg/dL (0.7-1.2) 08/20/24 11:38 GFR Calculation 74.1 mL/min (90-130) L 08/20/24 11:38 Glucose 144 mg/dL (65-115) H 08/20/24 11:38 Calculated Osmolality 280 mOsm/kg (285-295) L 08/20/24 11:38 Calcium 8.7 mg/dL (8.5-10.5) 08/20/24 11:38 Total Bilirubin 0.6 mg/dL (0.15-1.2) 08/20/24 11:38 AST 19 U/L (0-40) 08/20/24 11:38 ALT < 5 U/L (0-41) 08/20/24 11:38 Alkaline Phosphatase 121 U/L (40-130) 08/20/24 11:38 Total Protein 6.8 g/dL (6.6-8.7) 08/20/24 11:38 Albumin 4.0 g/dL (3.5-5.2) 08/20/24 11:38 Globulin 2.8 g/dL (1.3-4.6) 08/20/24 11:38 All radiology interpretation(s) finalized by discharge Discharge Plan Discharge Patient Disposition: Home Clinical Impression: Hemorrhoids, Lower GI bleed Condition: Stable Prescriptions: No Action mupirocin 2 % ointment 1 applic TOPICAL TID PRN (Reason: Skin Irritation) atenolol 50 mg tablet 50 mg PO QPM Discharge Orders: Discharge ED (Routine); Ordered 08/20/24 Ordered By: Trish Levy Referrals: Micah Brewer DO [Primary Care Provider] - Raji Maher MD [Physician] - 1-3 days Discharge Diet: Advance as tolerated Discharge Activity: Resume usual activity Patient Instructions: Hemorrhoids (ED), Rectal Bleeding (ED) Coding Level of Care Code ED Lithostripper for Geovany Manuel
[2024-08-20] MEDS: iohexol 350 mg/mL 500 mL Btl (per mL) IV (13:12)
[2024-08-20 14:08] LABS: Hematocrit 36.3 % (37-53)
[2024-08-20 14:11] VITALS: BP 119/70; PULSE 68; O2SAT 96
[2024-08-20] MEDS: tranexamic acid 1,000 MG/100 ML PREMIX 600 MG IV (14:33)
[2024-08-20 14:57] VITALS: BP 124/72; PULSE 60; O2SAT 98
--- NOTE | 2024-08-23 07:23 | DCPLANNER ---
messaged gen surg for er f/u
== END 2024-08-20 15:04 | disposition home or self-care (01) ==
PROVIDERS: Emergency Provider Emergency Medicine; PCP Family Medicine
DX: K64.9 Unspecified hemorrhoids (principal); K92.2 Gastrointestinal hemorrhage, unspecified; I10 Essential (primary) hypertension
CPT/HCPCS: 36415; 74177; 80053; 85014; 85018; 85025; 85610; 96365; 99285

== ENCOUNTER 2024-08-22 04:07 | Observation (INO) | payer MEDICARE, SELFPAY ==
[2024-08-22] VITALS (47 sets, daily range): BP systolic 103–136; BP diastolic 52–83; PULSE 53–96; RESP 11–23; TEMP 36.6–36.9; O2SAT 95–99; BMI 26.4; BMI 24.8
[2024-08-22 04:37] LABS: Basophils # 0.1 10^3/uL (0.0-0.1); Basophils % 0.6 %; Eosinophils # 0.3 10^3/uL (0.0-0.8); Eosinophils % 2.9 %; Hematocrit 29.9 % (37-53); Lymphocytes # 1.7 10^3/uL (0.8-4.8); Lymphocytes % 19.4 %; Mean Corpuscular HGB Conc 32.1 g/dL (30-55); Mean Corpuscular Hemoglobin 29.9 pg (27-33); Mean Corpuscular Volume 93.1 fl (82-101); Mean Platelet Volume 10.7 fL (7.4-10.4); Monocytes # 0.7 10^3/uL (0.2-0.9); Monocytes % 7.5 %; Neutrophils # 5.95 10^3/uL (1.8-7.7); Nucleated Red Blood Cells % 0 %; Platelet Count 250 10^3/cmm (157-399); Red Blood Count 3.21 10^6/uL (3.85-5.65); Red Cell Distribution Width 13.1 % (12.1-15.1); White Blood Count 8.62 10^3/uL (3.29-11.43)
[2024-08-22 04:51] LABS: INR 1.01 (0.8-1.2)
[2024-08-22 04:52] LABS: Partial Thromboplastin Time 29.7 SECONDS (23.9-36.7)
[2024-08-22 04:59] LABS: Alanine Aminotransferase 8 U/L (0-41); Albumin Level 3.6 g/dL (3.5-5.2); Alkaline Phosphatase 108 U/L (40-130); Aspartate Amino Transferase 18 U/L (0-40); Blood Urea Nitrogen 16 mg/dL (8-23); Calcium 8.2 mg/dL (8.5-10.5); Carbon Dioxide 23 mmol/L (22-29); Chloride 100 mmol/L (98-107); Creatinine Clr Calc Pharmacy 74.4432; Globulin 2.2 g/dL (1.3-4.6); Glomerular Filtration Rate 66.2 mL/min (90-130); Glucose 150 mg/dL (65-115); Lipase 25 U/L (13-60); Osmolality Calculated 286 mOsm/kg (285-295); Sodium 136 mmol/L (136-145); Total Bilirubin 0.2 mg/dL (0.15-1.2); Total Protein 5.8 g/dL (6.6-8.7)
[2024-08-22] MEDS: sodium chloride 0.9% 1,000 ML 999 ML IV (05:11)
--- NOTE | 2024-08-22 05:41 | ED_ITS ---
HPI - GI Bleed 2 General: Chief complaint: GI Bleed Stated complaint: RECTAL BLEEDING Time Seen by Provider: 08/22/24 04:14 History of Present Illness: 69-year-old male patient with a history of 2 previous major GI bleeds. He presents with continued rectal bleeding since he was seen on Friday 2 days ago with the same. He seemed to improve yesterday, but has had 2 episodes of bleeding again. At home, he became faint, and had a near syncopal episode after significant amount of blood in the stool. Blood is bright red. No significant clot formation. No vomiting no fever. He has no pain. Related Data Home Medications Medication Instructions Recorded Confirmed atenolol 50 mg tablet 50 mg PO QPM 08/20/24 08/22/24 Allergies Allergy/AdvReac Type Severity Reaction Status Date / Time No Known Allergies Allergy Verified 08/20/24 11:27 [facility] ED 2 PFSH: Medical History Diverticulosis Sciatica of right side Hypertension History of gastric ulcer Diverticulosis large intestine w/o perforation or abscess w/bleeding Surgical History History of back surgery History of esophagogastroduodenoscopy (EGD) Family History Other Cancer Dementia Denies family history of Diabetes CAD (coronary artery disease) Chronic kidney disease (CKD) Hypertension Stroke Social History Smoking and tobacco/nicotine status: never used tobacco/nicotine Second hand smoke exposure: No Alcohol intake: never Substance/Drug Use: never Lives independently: Yes Household members: spouse Marital status: Physical Exam 2 Const: COMMON NORMALS: no acute distress GENERAL APPEARANCE: cooperative; not ill appearing and not frail appearing HENMT: COMMON NORMALS: normocephalic, atraumatic and Normal external nose present HEAD & SCALP: normocephalic and atraumatic FACE & SINUS: normal facial exam and face symmetric NOSE: Normal external nose present Eye: COMMON NORMALS: Equal, round and reactive pupils present and EOMs intact bilaterally PUPIL: Yes Equal, round and reactive pupils present Neck/C-Spine: GENERAL: Yes trachea midline Chest: CHEST: Yes Symmetrical chest wall rise Resp: COMMON NORMALS: normal respiratory effort, No retractions, No use of accessory muscles and clear to auscultation bilaterally AUSCULTATION: clear to auscultation bilaterally Cardio: COMMON NORMALS: regular rate and regular rhythm RATE: regular rate RHYTHM: regular rhythm GI: COMMON NORMALS: Normal to inspection, nondistended, normoactive bowel sounds present RECTAL EXAM: Yes heme positive stool and Yes hemorrhoids Extremity: COMMON NORMALS: no pedal edema Neuro: BLADIMIR COMA SCALE: document GCS findings Bladimir coma scale eye opening: Spontaneous Baldimir coma scale verbal response: Orientated Bladimir coma scale motor response: Obey commands Bladimir coma scale total score: 15 S ENSORY EXAM: Yes extremities (intact) Psych: COMMON NORMALS: speech normal SPEECH: Yes normal speech Skin: COMMON NORMALS: no rashes or lesions noted GENERAL SKIN EXAM: no rashes or lesions noted Course 2 Vital Signs: Vital signs: Vital Signs Temperature 97.8 F 08/22/24 15:06 Pulse Rate 70 08/22/24 15:06 Respiratory Rate 14 08/22/24 15:06 Blood Pressure 127/83 08/22/24 15:06 Pulse Oximetry 98 08/22/24 15:06 Oxygen Delivery Me thod Room Air 08/22/24 15:06 MDM - GI Bleed Medical Decision Making This patient is normotensive. He has no significant tachycardia. His hemoglobin however is 9.6 down from 11.9 on Friday. He continues to have some bleeding on and off. CT was negative for source on Friday. Because of concern given 2 major GI bleeds in the past, the patient will be observed. Hospitalist agrees. Surgery has been consulted. Hospitalist will see the patient soon. Lab Data 08/22/24 15:19 08/22/24 04:27 Radiology Impressions Abdomen/Pelvis CTA 08/22/24 08:19 IMPRESSION: 1. Diverticulosis. No definite active GI bleeding site identified. 2. Fatty infiltration of the liver. 3. Acute on chronic compression fracture involving L2 similar to that seen on prior exam. 4. Please see above comments for additional details. Laboratory Results WBC 8.62 10^3/uL (3.29-11.43) 08/22/24 04:27 RBC 3.21 10^6/uL (3.85-5.65) L 08/22/24 04:27 Hgb 9.60 g/dL (11.27-16.99) L 08/22/24 04:27 Hct 29.9 % (37-53) L 08/22/24 04:27 MCV 93.1 fl (82-101) 08/22/24 04:27 MCH 29.9 pg (27-33) 08/22/24 04: MCHC 32.1 g/dL (30-55) 08/22/24 04:27 RDW 13.1 % (12.1-15.1) 08/22/24 04:27 Plt Count 250 10^3/cmm (157-399) 08/22/24 04:27 MPV 10.7 fL (7.4-10.4) H 08/22/24 04:27 Neut % (Auto) 69.0 % 08/22/24 04:27 Lymph % (Auto) 19.4 % 08/22/24 04:27 [place] % (Auto) 7.5 % 08/22/24 04:27 Eos % (Auto) 2.9 % 08/22/24 04:27 Baso % (Auto) 0.6 % 08/22/24 04:27 Neut # (Auto) 5.95 10^3/uL (1.8-7.7) 08/22/24 04: Lymph # (Auto) 1.7 10^3/uL (0.8-4.8) 08/22/24 04:27 [place] # (Auto) 0.7 10^3/uL (0.2-0.9) 08/22/24 04:27 Eos # (Auto) 0.3 10^3/uL (0.0-0.8) 08/22/24 04:27 Baso # (Auto) 0.1 10^3/uL (0.0-0.1) 08/22/24 04:27 Nucleated RBC % (auto) 0 % 08/22/24 04: Nucleated RBCs # 0.0 /100WBC 08/22/24 04: PT 14.00 SECONDS (12.1-14.9) 08/22/24 04: INR 1.01 (0.8-1.2) 08/22/24 04:27 APTT 29.7 SECONDS (23.9-36.7) 08/22/24 04:27 Sodium 136 mmol/L (136-145) 08/22/24 04:27 Potassium 4.0 mmol/L (3.5-5.1) 08/22/24 04:27 Chloride 100 mmol/L (98-107) 08/22/24 04:27 Carbon Dioxide 23 mmol/L (22-29) 08/22/24 04:27 Anion Gap 17.0 (5-19) 08/22/24 04:27 BUN 16 mg/dL (8-23) 08/22/24 04:27 Creatinine 1.1 mg/dL (0.7-1.2) 08/22/24 04:27 GFR Calculation 66.2 mL/min (90-130) L 08/22/24 04:27 Glucose 150 mg/dL (65-115) H 08/22/24 04:27 Calculated Osmolality 286 mOsm/kg (285-295) 08/22/24 04:27 Calcium 8.2 mg/dL (8.5-10.5) L 08/22/24 04:27 Total Bilirubin 0.2 mg/dL (0.15-1.2) 08/22/24 04:27 AST 18 U/L (0-40) 08/22/24 04:27 ALT 8 U/L (0-41) 08/22/24 04:27 Alkaline Phosphatase 108 U/L (40-130) 08/22/24 04:27 Total Protein 5.8 g/dL (6.6-8.7) L 08/22/24 04:27 Albumin 3.6 g/dL (3.5-5.2) 08/22/24 04:27 Globulin 2.2 g/dL (1.3-4.6) 08/22/24 04:27 Lipase 25 U/L (13-60) 08/22/24 04:27 No radiology studies performed this visit Discharge Plan Discharge Patient Disposition: Admitted As Inpatient Admit Provider: Paulina Ovalle Clinical Impression: Lower GI bleed, Hemorrhoids Condition: Stable Coding Level of Care Code ED Wardrobe Supervisor for Geovany Manuel
--- NOTE | 2024-08-22 06:58 | P.HP_ITS ---
Providers/Chief Complaint 2 Primary Care Provider: Micah Brewer DO Chief Complaint: RECTAL BLEEDING History of Present Illness Renato Reyes is a 69 year old male with history of hemorrhoids, diverticulosis presented with chief complaint of worsening of lower GI bleed. Patient has been noticing lower GI bleed for last 3 to 4 days, he was experiencing presyncopal event. He was evaluated on 08/20 by the ER physician CT abdomen pelvis consistent with hemorrhoids and diverticulosis, at that point his hemoglobin was around 13. Patient is returning secondary to generalized weakness, fatigue, presyncopal events and persistent bright bleed per rectum. Hemoglobin at this point is 9.6. General surgery consulted, patient is hemodynamically stable at the time of evaluation stating that he had colonoscopy [address] Barrett, patient is also experiencing back pain he has compression fracture L2 Patient not showing signs of cauda equina Patient is stating that every time he gets ketorolac/Toradol for his back pain he tends to experience bright bleed per rectum. No recent history of gastric ulcer Patient also follows up with Dr. Camacho for his back pain and Dr. Aguilar for pain management Colonoscopy 2021: Showed Descending colon polyps: Diverticulosis without perforation or abscess Biopsy did not show any malignancy It was consistent with tubular adenoma Review of Systems 2 Const: Denies: fever(s) Eyes: Denies: change in vision ENMT: Denies: throat pain Card: Denies: chest pain Resp: Denies: dyspnea GI: Reports: nausea Medications/Allergies Home Medications Medication Instructions Recorded Confirmed Last Taken Type atenolol 50 mg tablet 50 mg PO QPM 08/20/24 08/20/24 08/19/24 History mupirocin 2 % topical ointment 1 applic topical TID PRN Skin 08/20/24 08/20/24 Unknown History Irritation Allergies Allergy/AdvReac Type Severity Reaction Status Date / Time No Known Allergies Allergy Verified 08/20/24 11:27 PFSH Acute 2 PFSH: Medical History Diverticulosis Sciatica of right side Hypertension History of gastric ulcer Diverticulosis large intestine w/o perforation or abscess w/bleeding Surgical History History of back surgery History of esophagogastroduodenoscopy (EGD) Family History Other Cancer Dementia Denies family history of Diabetes CAD (coronary artery disease) Chronic kidney disease (CKD) Hypertension Stroke Social History Smoking and tobacco/nicotine status: never used tobacco/nicotine Second hand smoke exposure: No Alcohol intake: never Substance/Drug Use: never Lives independently: Yes Household members: spouse Marital status: Vitals/I&O/Wt Last Vital Signs Temp 98 F 08/22/24 04:13 Pulse 60 08/22/24 06:37 Resp 16 08/22/24 06:37 BP 112/66 08/22/24 06:37 Pulse Ox 96 08/22/24 06:37 O2 Del Method Room Air 08/22/24 06:37 08/21/24 08/21/24 08/22/24 14:59 22:59 06:59 Intake Total 0 / 0 Balance 0 / 0 Weight last 48 hrs Weight 90.718 kg Physical Exam 2 Narrative: Awake and alert GCS 15 Nonfocal neuroexam Nonfocal neuroexam Pale complexion S1, S2 heart rate around 60s Hemodynamically stable Abdomen soft Lower extremity no edema S1, S2 Currently room air AOx4 Data 08/22/24 04:27 08/22/24 04:27 A&P Assessment and plan (1) GERD without esophagitis: (2) Bleeding per rectum: (3) Diverticulosis large intestine w/o perforation or abscess w/bleeding: (4) Lower gastrointestinal hemorrhage: (5) Diverticulosis: (6) Hemorrhoids: (7) Anemia: (8) Back pain: (9) Low back pain radiating to right lower extremity: (10) Lumbar compression fracture: (11) Pre-syncope: Plan Hematochezia Significant bleeding causing presyncopal event Pale complexion History of hemorrhoids and diverticulosis No active bleeding at the time of evaluation However significant drop in hemoglobin from 13-9 Will give him 1 unit PRBC Will keep him on liquid diet General Surgery consulted Keep him on Protonix DVT prophylaxis: SCDs Clear liquid diet Full code Previous colonoscopy 2021: Report mentioned in HPI Pain management for L2 fracture: No signs of cauda equina: Patient has been seeing Dr. Aguilar for pain management, Dr. Camacho will start his call days 09/07 Attestations 2 Medical Necessity Statement*: Anticipate discharge within 48 hours Diagnoses GERD without esophagitis K21.9 Bleeding per rectum K62.5 Diverticulosis large intestine w/o perforation or abscess w/bleeding K57.31 Lower gastrointestinal hemorrhage K92.2 Diverticulosis K57.90 Hemorrhoids K64.9 Anemia D64.9 Back pain M54.9 Low back pain radiating to right lower extremity M54.50; M79.604 Lumbar compression fracture S32.000A Pre-syncope R55
[2024-08-22 08:01] LABS: Hematocrit 26.4 % (37-53)
--- NOTE | 2024-08-22 08:19 | CTR_ITS ---
PROCEDURE INFORMATION: Exam: CTA Abdomen and Pelvis With Contrast Exam date and time: 08/22/2024 8:36 AM Age: 69 years old Clinical indication: Other: Rectal bleeding; Prior surgery; Surgery date: 6+ months; Surgery type: Lumbar, ulcer; HX of gi bleed x 2; Additional info: Lower gi bleed TECHNIQUE: Imaging protocol: Computed tomographic angiography of the abdomen and pelvis with contrast. Exam focused on the arteries. 3D rendering (Not supervised by radiologist): MIP and/or 3D reconstructed images were created by the technologist. Radiation optimization: All CT scans at this facility use at least one of these dose optimization techniques: automated exposure control; mA and/or kV adjustment per patient size (includes targeted exams where dose is matched to clinical indication); or iterative reconstruction. Contrast material: OMNIPAQUE 350; Contrast volume: 100 ml; Contrast route: INTRAVENOUS (IV); COMPARISON: CT angio abdomen pelvis [id number] 07/06/2022 7:26 PM RADIATION DOSE METRICS: Total DLP (mGy-cm): 664.57 FINDINGS: Aorta: Mild plaque without high-grade stenosis or occlusion. Celiac trunk and mesenteric arteries: There is mild narrowing involving the origin of the celiac axis. The SMA is widely patent. Renal arteries: There are 2 patent renal arteries on the right. The more dominant artery demonstrates moderate narrowing involving its origin. There are 4 patent renal arteries on the left. There is moderate narrowing involving the dominant artery. Right iliac arteries: Mild plaque without high-grade stenosis or occlusion. Left iliac arteries: Mild plaque without high-grade stenosis or occlusion. Liver: There is diffuse fatty infiltration of the liver. The liver is otherwise normal. Gallbladder and biliary ducts: Unremarkable. No calcified stones. No ductal dilation. Pancreas: Unremarkable. No mass. No ductal dilation. Spleen: Unremarkable. No splenomegaly. Adrenal glands: Unremarkable. No mass. Kidneys and ureters: Stable appearing minimally complex cyst with areas of wall calcification involving the right kidney. No solid renal masses are noted. No renal calculi are identified. No hydronephrosis is appreciated. Stomach and bowel: There are scattered colonic diverticula. No bowel wall thickening is appreciated. No dilated loops of large or small bowel is appreciated. No definite active GI bleeding site is identified. Appendix: No evidence of appendicitis. Intraperitoneal space: Unremarkable. No free air. No significant fluid collection. Lymph nodes: Unremarkable. No enlarged lymph nodes. Urinary bladder: Unremarkable. No mass. Reproductive: Unremarkable as visualized. Bones/joints: Acute on chronic compression fracture again noted involving L2. Old compression deformities noted involving L3 and L4. There are postoperative changes involving the thoracolumbar junction. No blastic or lytic bony lesions are noted. Soft tissues: There is a fat filled periumbilical hernia. There are small fat filled fenestrations involving the anterior abdominal wall proximal to the umbilicus. CT/CT angio abdomen pelvis [id number] IMPRESSION: 1. Diverticulosis. No definite active GI bleeding site identified. 2. Fatty infiltration of the liver. 3. Acute on chronic compression fracture involving L2 similar to that seen on prior exam. 4. Please see above comments for additional details.
--- NOTE | 2024-08-22 08:22 | P.CONIM_ITS ---
Providers/Reason For Consult 2 Consulting Physician/Specialty*: General Surgery Reason for Consult*: Lower GI bleeding Attending Physician: Paulina Ovalle MD Primary Care Provider: Micah Brewer DO History of Present Illness History of Present Illness Renato Reyes is a 69 year old male with history of lower GI bleeding who presents to the hospital with a new episode of lower GI bleeding. According to the patient started on Friday where he saw a large amount of blood with his stool he came to the ER examination was unremarkable a CT of the abdomen was unremarkable and he is hemoglobin level was 12 and therefore he was allowed to return home, over the last 48 hours he has had persistent bleeding and dizziness on presentation today he has a drop in his hemoglobin of 3 points. Last bowel movement was before presenting to the hospital. Review of Systems 2 General: Reports: 10 or more systems reviewed and unremarkable except in HPI and below Medications/Allergies Home Medications Medication Instructions Recorded Confirmed Last Taken Type atenolol 50 mg tablet 50 mg PO QPM 08/20/24 08/20/24 08/19/24 History mupirocin 2 % topical ointment 1 applic topical TID PRN Skin 08/20/24 08/20/24 Unknown History Irritation Allergies Allergy/AdvReac Type Severity Reaction Status Date / Time No Known Allergies Allergy Verified 08/20/24 11:27 PFSH Acute 2 PFSH: Medical History Diverticulosis Sciatica of right side Hypertension History of gastric ulcer Diverticulosis large intestine w/o perforation or abscess w/bleeding Surgical History History of back surgery History of esophagogastroduodenoscopy (EGD) Family History Other Cancer Dementia Denies family history of Diabetes CAD (coronary artery disease) Chronic kidney disease (CKD) Hypertension Stroke Social History Smoking and tobacco/nicotine status: never used tobacco/nicotine Second hand smoke exposure: No Alcohol intake: never Substance/Drug Use: never Lives independently: Yes Household members: spouse Marital status: Vitals/I&O/Wt Last Vital Signs Temp 98 F 08/22/24 04:13 Pulse 60 08/22/24 06:37 Resp 16 08/22/24 06:37 BP 112/66 08/22/24 06:37 Pulse Ox 96 08/22/24 06:37 O2 Del Method Room Air 08/22/24 06:37 08/21/24 08/22/24 08/22/24 22:59 06:59 14:59 Intake Total 0 / 0 Balance 0 / 0 Weight last 48 hrs Weight 200 lb Physical Exam 2 Narrative: Alert and oriented, slightly pale. Abdomen soft nontender nondistended. Rectal examination was done, there is a small external hemorrhoid, there is no evidence of pathology at the level of the rectum but there is blood residue in the rectal vault. Data 08/22/24 07:50 08/22/24 04:27 A&P Assessment and plan (1) Bleeding per rectum: (2) Lower gastrointestinal hemorrhage: (3) GI bleed: Qualifiers: GI bleed type/associated pathology: diverticulitis Qualified Code(s): K 57.93 - Diverticulitis of intestine, part unspecified, without perforation or abscess with bleeding Plan This is a 69-year-old male presenting with GI bleeding suspected to be lower GI bleeding. He has previous episodes of lower GI bleeding, has history of diverticulosis. Last episode lower GI bleeding a colonoscopy was done that shows significant amount of retained blood but no evidence of a source. Patient has dropped 3 pounds in the hemoglobin in the last 2 days and while the patient has been here he has already dropped 1 more point in his hemoglobin from 4 AM to 8 AM. This raises a concern of possible active bleeding. Under the circumstances that CTA of the abdomen and pelvis is indicated. If active GI bleeding is identified patient will require transfer to higher level of care for embolization and subsequent GI evaluation. If there is no clear source of bleeding in the GI tract we will give bowel prep today and proceed with upper and lower endoscopy tomorrow. Patient shows understanding agrees with the plan. Plan was discussed with medical team Coding Level of Care Code Acute Code for Chg Fwd Diagnoses Bleeding per rectum K62.5 Lower gastrointestinal hemorrhage K92.2 Gastrointestinal hemorrhage associated with intestinal diverticulitis K57.93 GI bleed type/associated pathology: diverticulitis
[2024-08-22] MEDS: iohexol 350 mg/mL 500 mL Btl (per mL) IV (08:45)
[2024-08-22] MEDS: pantoprazole 40 mg SDV IVP ×2 (10:01→17:58)
--- NOTE | 2024-08-22 11:35 | PC.NURSE ---
TLSO brace was ordered by ER[facility]HOME called and they state it is a private pay item.P.T. is not in-house today for consult/eval regarding this item.Pt says he has a brace at home.Will wait and have P.T.evaluate this tomorrow.
[2024-08-22] MEDS: magnesium citrate Btl 296 mL PO ×2 (12:29→21:00)
[2024-08-22 12:45] LABS: Bilirubin Urine Negative (Negative); Blood Urine Negative (Negative); Glucose Urine UA Negative (Normal); Ketones Urine Negative (Negative); Leukocyte Esterase Urine Negative (Negative); Nitrate Urine Negative (Negative); Protein Urine Negative (Negative); Urine Appearance Clear (CLEAR); Urine Color Yellow (Yellow)
[2024-08-22 12:50] LABS: Add Urine Microscopic? YES; Bacteria Urine None Seen /hpf; Hyaline Casts Urine 0-4 /lpf; RBC Urine 0-2 /hpf (0-2); Squamous Epithelial Cell Urine 0-5 /hpf (0-5); WBC Urine 0-5 /hpf (0-5)
[2024-08-22 12:52] LABS: Specific Gravity, Urine 1.062 (1.005-1.030)
[2024-08-22] MEDS: bisacodyl 5 mg Tablet 10 MG PO (13:50)
--- NOTE | 2024-08-22 14:14 | PM.MISC ---
Miscellaneous Note Note: Seen this morning. Continue management as per H&P. Plan for colonoscopy in AM.
[2024-08-22 15:42] LABS: Hematocrit 27.9 % (37-53)
[2024-08-22 19:42] LABS: Basophils % 0.5 %; Eosinophils # 0.1 10^3/uL (0.0-0.8); Eosinophils % 1.2 %; Hematocrit 27.4 % (37-53); Lymphocytes # 1.8 10^3/uL (0.8-4.8); Lymphocytes % 23.2 %; Mean Corpuscular HGB Conc 32.8 g/dL (30-55); Mean Corpuscular Hemoglobin 29.7 pg (27-33); Mean Corpuscular Volume 90.4 fl (82-101); Mean Platelet Volume 10.7 fL (7.4-10.4); Monocytes # 0.6 10^3/uL (0.2-0.9); Monocytes % 7.9 %; Neutrophils # 5.06 10^3/uL (1.8-7.7); Neutrophils % 66.4 %; Nucleated Red Blood Cells % 0 %; Platelet Count 176 10^3/cmm (157-399); Red Blood Count 3.03 10^6/uL (3.85-5.65); Red Cell Distribution Width 13.2 % (12.1-15.1); White Blood Count 7.62 10^3/uL (3.29-11.43)
[2024-08-22 22:45] LABS: Hematocrit 29.7 % (37-53)
[2024-08-23] VITALS (78 sets, daily range): BP systolic 109–155; BP diastolic 50–80; PULSE 60–113; RESP 10–23; TEMP 36.3–37.1; O2SAT 93–100
[2024-08-23] MEDS: ondansetron 2 mg/ML SDV 2 mL 4 MG IVP (00:58)
[2024-08-23 02:33] LABS: Basophils % 0.3 %; Eosinophils # 0.1 10^3/uL (0.0-0.8); Eosinophils % 0.6 %; Hematocrit 28.3 % (37-53); Lymphocytes # 1.2 10^3/uL (0.8-4.8); Lymphocytes % 9.9 %; Mean Corpuscular HGB Conc 31.8 g/dL (30-55); Mean Corpuscular Hemoglobin 30.1 pg (27-33); Mean Corpuscular Volume 94.6 fl (82-101); Mean Platelet Volume 11.1 fL (7.4-10.4); Monocytes # 0.6 10^3/uL (0.2-0.9); Monocytes % 4.8 %; Neutrophils # 10.32 10^3/uL (1.8-7.7); Neutrophils % 83.4 %; Nucleated Red Blood Cells % 0 %; Platelet Count 174 10^3/cmm (157-399); Red Blood Count 2.99 10^6/uL (3.85-5.65); Red Cell Distribution Width 13.5 % (12.1-15.1); White Blood Count 12.39 10^3/uL (3.29-11.43)
[2024-08-23 02:57] LABS: Anion Gap 16.6 (5-19); Blood Urea Nitrogen 13 mg/dL (8-23); Calcium 8.2 mg/dL (8.5-10.5); Carbon Dioxide 20 mmol/L (22-29); Chloride 104 mmol/L (98-107); Creatinine Clr Calc Pharmacy 72.5592; Glomerular Filtration Rate 66.2 mL/min (90-130); Glucose 159 mg/dL (65-115); Magnesium 2.7 mg/dL (1.7-2.3); Osmolality Calculated 287 mOsm/kg (285-295); Potassium 3.6 mmol/L (3.5-5.1); Sodium 137 mmol/L (136-145)
--- NOTE | 2024-08-23 07:18 | P.PN_ITS ---
Subjective 2 Subjective: Patient completed bowel prep yesterday. Continues to have rectal bleeding according to patient and stool is foul-smelling. Denies nausea vomiting. Denies abdominal pain. Vitals/I&O/Wt Last Vital Signs Temp 97.8 F 08/23/24 04:00 Pulse 99 08/23/24 05:48 Resp 17 08/23/24 04:00 BP 109/67 08/23/24 04:00 Pulse Ox 99 08/22/24 18:40 O2 Del Method Room Air 08/22/24 18:40 08/22/24 08/23/24 08/23/24 22:59 06:59 14:59 Intake Total 1240 / 2070 Balance 1240 / 0 Weight last 48 hrs Weight 190 lb 11.2 oz Weight 188 lb 4 oz Weight 200 lb Physical Exam 2 GI: OTHER: Abdominal exam is benign abdomen soft nontender nondistended. Data 08/23/24 01:48 08/23/24 01:48 A&P Assessment and plan (1) Bleeding per rectum: (2) Diverticulosis large intestine w/o perforation or abscess w/bleeding: Plan Plan is to proceed with upper and lower endoscopy today. Will update possible treatment plan once endoscopy has been completed. All other management per medical team is appreciated Attestations 2 Medical Necessity Statement*: Per medical Coding Level of Care Code Acute Code for Chg Fwd Diagnoses Bleeding per rectum K62.5 Diverticulosis large intestine w/o perforation or abscess w/bleeding K57.31
[2024-08-23 07:42] LABS: Hematocrit 25.1 % (37-53)
[2024-08-23 09:08] LABS: Estmated Average Glucose 108; Hemoglobin A1C 5.4 % (4.0-6.0)
[2024-08-23 09:25] LABS: Iron 87 ug/dL (59-158); Percent Saturation 33.3 % (20-50); Thyroid Stimulating Hormone 2.04 uIU/mL (0.27-4.20); Total Iron Binding Capacity 261 mcg/dl; Unsaturated Iron Binding 174 ug/dL (112-347); Vitamin B12 261 pg/mL (232-1245)
[2024-08-23] MEDS: pantoprazole 40 mg SDV IVP ×2 (09:42→17:46)
[2024-08-23] MEDS: sodium chloride 0.9% 1,000 ML 75 ML IV (09:42)
[2024-08-23] MEDS: metoprolol tartrate 25 mg Tablet 12.5 MG PO ×2 (09:43→20:04)
--- NOTE | 2024-08-23 10:43 | ANES.PREANE2 ---
Pre-Anesthetic Assessment Height/Weight: Height 1.85 m Weight 86.5 kg Temp Pulse Resp BP Pulse Ox O2 Del Method 97.5 F L 105 H 22 H 127/76 98 Room Air 08/23/24 07:20 08/23/24 08:57 08/23/24 08:57 08/23/24 07:20 08/23/24 08:57 08/23/24 08:57 Preop Diagnosis: GI Bleed Operation Date: 08/23/24 12:00 Proposed Procedures p EGD(Not Applicable) - Raji Maher MD s Colonoscopy(Not Applicable) - Raji Maher MD Familial anesthetic complications: none Was Beta Sara taken within 24 hours: Yes Was Clonidine taken within 24 hours: N/A Last intake: 8 PM yesterday Social No alcohol and No tobacco Exam alert, oriented x 3, clear to auscultation bilaterally and regular rate & rhythm Airway Submandibular: within normal limits Cervical ROM: within normal limits Mallampati: Class II Comments: Comments: Missing several top and bottom History/ROS No significant history except as noted and No significant complaints Pulmonary None reported CV/HEM Anemia and Hypertension None reported Hepatic None reported GI Gastroesophageal Reflux Disease Metabolic None reported Neuropsych None reported Anesthetic Plan ASA status: 2 Anesthesia: MAC Risk of > 500 ml blood loss (7ml/kg in children): No Medications/Allergies Home Medications Medication Instructions Recorded Confirmed Last Taken Type atenolol 50 mg tablet 50 mg PO QPM 08/20/24 08/22/24 08/21/24 History Allergies Allergy/AdvReac Type Severity Reaction Status Date / Time No Known Allergies Allergy Verified 08/20/24 11:27 Current Medications Generic Name Dose Route Start Last Admin Trade Name Freq PRN Reason Stop Dose Admin Sodium Chloride 1,000 mls @ 75 mls/hr 08/23/24 09:45 08/23/24 09:42 Sodium Chloride 0.9% IV 75 mls/hr .[id number] ELIAS Administration Ondansetron HCl 4 mg 08/22/24 06:56 08/23/24 00:58 Ondansetron 2 Mg/Ml Sdv 2 Ml IVP 4 mg Q6H PRN Administration NAUSEA AND VOMITING Pantoprazole Sodium 40 mg 08/22/24 09:00 08/23/24 09:42 Pantoprazole 40 Mg Sdv IVP 40 mg BID ELIAS Administration PFSH Anesthesia Medical History Diverticulosis Sciatica of right side Hypertension History of gastric ulcer Diverticulosis large intestine w/o perforation or abscess w/bleeding Surgical History History of back surgery History of esophagogastroduodenoscopy (EGD) Family History Other Cancer Dementia Denies family history of Diabetes CAD (coronary artery disease) Chronic kidney disease (CKD) Hypertension Stroke Social History Smoking and tobacco/nicotine status: never used tobacco/nicotine Second hand smoke exposure: No Alcohol intake: never Substance/Drug Use: never Lives independently: Yes Household members: spouse Marital status: Data Anesthesia 08/23/24 07:28 08/23/24 01:48 Short CBC 08/22/24 08/22/24 08/22/24 Range/Units 04:27 07:50 15:19 WBC 8.62 (3.29-11.43) 10^3/uL Hgb 9.60 L 8.40 L 9.40 L (11.27-16.99) g/dL Hct 29.9 L 26.4 L 27.9 L (37-53) % MCV 93.1 (82-101) fl Plt Count 250 (157-399) 10^3/cmm Neut % (Auto) 69.0 % Neut # (Auto) 5.95 (1.8-7.7) 10^3/uL 08/22/24 08/22/24 08/23/24 Range/Units 19:10 22:41 01:48 WBC 7.62 12.39 H (3.29-11.43) 10^3/uL Hgb 9.00 L 9.80 L 9.00 L (11.27-16.99) g/dL Hct 27.4 L 29.7 L 28.3 L (37-53) % MCV 90.4 94.6 (82-101) fl Plt Count 176 174 (157-399) 10^3/cmm Neut % (Auto) 66.4 83.4 % Neut # (Auto) 5.06 10.32 H (1.8-7.7) 10^3/uL 08/23/24 Range/Units 07:28 WBC (3.29-11.43) 10^3/uL Hgb 8.10 L (11.27-16.99) g/dL Hct 25.1 L (37-53) % MCV (82-101) fl Plt Count (157-399) 10^3/cmm Neut % (Auto) % Neut # (Auto) (1.8-7.7) 10^3/uL BMP 08/22/24 08/23/24 04:27 01:48 Sodium 136 137 Potassium 4.0 3.6 Chloride 100 104 Carbon Dioxide 23 20 L BUN 16 13 Creatinine 1.1 1.1 Glucose 150 H 159 H Calcium 8.2 L 8.2 L Liver Function 08/22/24 Range/Units 04:27 Total Bilirubin 0.2 (0.15-1.2) mg/dL AST 18 (0-40) U/L ALT 8 (0-41) U/L Alkaline Phosphatase 108 (40-130) U/L Albumin 3.6 (3.5-5.2) g/dL Urine 08/22/24 Range/Units 12:30 Urine Color Yellow (Yellow) Urine Appearance Clear (CLEAR) Urine pH 6.0 (5-7) Ur Specific [place] 1.062 H (1.005-1.030) Urine Protein Negative (Negative) Urine Glucose (UA) Negative (Normal) Urine Ketones Negative (Negative) Urine Nitrate Negative (Negative) Urine Bilirubin Negative (Negative) Ur Leukocyte Esterase Negative (Negative) Urine RBC 0-2 (0-2) /hpf Urine WBC 0-5 (0-5) /hpf Blood Bank 08/22/24 07:50 Blood Type O Positive Rho(D) Type Rh positive Antibody Screen Negative Coags 08/22/24 04:27 PT 14.00 INR 1.01 APTT 29.7 Cardiac Studies: No Data to Display
[2024-08-23 11:12] LABS: Hematocrit 24.1 % (37-53)
--- NOTE | 2024-08-23 12:02 | PC.PT ---
PT lorelei attempted. Hold today per nursing request due to blood loss and dizziness. Patient does not want TLSO back brace as he has a brace at home and does not feel he needs a new one.
--- NOTE | 2024-08-23 14:50 | ANE.PACU2 ---
Inpatient post-anesthesia follow up: Airway intact: Yes Vital signs: Temperature 98.5 F Pulse Rate 81 Respiratory Rate 15 Blood Pressure 122/63 Pulse Oximetry 99 Oxygen Delivery Me thod Room Air Oxygen Flow Rate Fraction of Inspir ed Oxygen Hydration adequate: Yes Nausea and vomiting: No Pain level: 1 Mental status: Baseline
--- NOTE | 2024-08-23 15:02 | PM.MISC ---
Miscellaneous Note Purpose of Documentation: Update on patient care Note: Patient was evaluated at bedside today he completed the bowel prep and was taken for upper and lower endoscopy. No evidence of upper GI bleeding, in the lower endoscopy there was blood all the way through the colon to the level of the cecum without evidence of active bleeding. Visualization of the terminal ileum failed to show any evidence of bleeding. There were several polyps that were not taken out due to active lower GI bleed. These findings are highly concerning for the possibility of occult pathology that is causing the bleeding. Patient will require additional evaluation by a GI specialist including possible tagged RBC scan and enteroscopy. I have discussed this findings with medical team and we will plan for possible transfer to higher level of care. I have also discussed the findings with family member. In the meantime patient can be on a clear liquid diet as tolerated, I recommend that we continue twice a day PPI and continue to monitor hemoglobin.
--- NOTE | 2024-08-23 15:24 | PC.NURSE ---
return from colonoscopy/egd.report received.pt is awake and alert and oriented x 4.mild discomfort reported in abd.sr on monitor.bp stable.will attempt to locate bed for transfer for gi specialist as per dr estevez.pt instructed to notify staff for any bleeding,dizziness,increase in pain...or for any concerns at all.pt verb understanding of instructions.
--- NOTE | 2024-08-23 17:02 | PM.TDS ---
Transfer Summary Providers Date of Admission: 08/22/24 05:41 Date of Discharge/Transfer: 08/23/24 Attending Provider at Admission: Paulina Ovalle MD Attending Provider at Transfer: Alen Mancia MD Consults: Surgery: Dr. Lalo Michael Primary Care Provider: Micah Brewer DO Transfer Plans: Anticipated date of transfer: 08/23/24. Diagnoses at Discharge Discharge Diagnosis (1) Bleeding per rectum: Status: Acute (2) Diverticulosis large intestine w/o perforation or abscess w/bleeding: Status: Chronic Reason for Visit Reason for Visit RECTAL BLEEDING Brief History: History as per HPI: Renato Reyes is a 69 year old male with history of hemorrhoids, diverticulosis presented with chief complaint of worsening of lower GI bleed. Patient has been noticing lower GI bleed for last 3 to 4 days, he was experiencing presyncopal event. He was evaluated on 08/20 by the ER physician CT abdomen pelvis consistent with hemorrhoids and diverticulosis, at that point his hemoglobin was around 13. Patient is returning secondary to generalized weakness, fatigue, presyncopal events and persistent bright bleed per rectum. Hemoglobin at this point is 9.6. General surgery consulted, patient is hemodynamically stable at the time of evaluation stating that he had colonoscopy [address] Barrett, patient is also experiencing back pain he has compression fracture L2 Patient not showing signs of cauda equina Patient is stating that every time he gets ketorolac/Toradol for his back pain he tends to experience bright bleed per rectum. No recent history of gastric ulcer Patient also follows up with Dr. Camacho for his back pain and Dr. Aguilar for pain management Colonoscopy 2021: Showed Descending colon polyps: Diverticulosis without perforation or abscess Biopsy did not show any malignancy It was consistent with tubular adenoma Hospital Course Hospital Course Patient was roomed to the hospital further evaluation and management. Surgery was consulted. He underwent bowel prep. Continued to have bleeding per rectum. Hemoglobin trended down to 8.2. Hemoglobin is trending down from 13 on 08/20. He underwent endoscopy and colonoscopy on 08/23. No active site of bleeding was seen on endoscopy while in colonoscopy he was found to have blood all the way through the colon to the level of cecum without evidence of active bleeding. Visualization of terminal ileum was failed due to evidence of bleeding. Given the concerns for possible transfer for gastroenterology was sought. Currently patient is getting hemoglobin and hematocrit checked every 6 hours with 2 units of PRBC on hold for hemoglobin below 7 or hemodynamic instability. Care discussed in detail with patient's family who are agreeable for transfer. He has been transferred in medically stable condition. Physical Exam Narrative: General: No acute distress, AO x3, Pallor present, dehydrated, sick appearing HEENT: PERRLA, pupils bilaterally equal and reactive Chest: Normal vesicular breath sounds, no added sounds, equal good air entry bilaterally CVS: S1-S2 regular, no murmurs, no tachycardia, no gallops, no rubs Abdomen: Soft, generalized mild tenderness more in the right lower quadrant, no organomegaly, bowel sounds present Neuro: No focal deficits, no facial deformity, AO x3, power 5/5 in all limbs TS Data Studies Completed and Pending Pending at discharge Category Date Time Status Complete Blood Count w/Auto AM LABS Lab 08/24/24 04:00 Ordered Comprehensive Metabolic Panel AM LABS Lab 08/24/24 04:00 Ordered Folate Level AM LABS Lab 08/24/24 04:00 Ordered Hemoglobin and Hematocrit Q8H Lab 08/23/24 19:00 Ordered Hemoglobin and Hematocrit Q8H Lab 08/24/24 03:00 Ordered Hemoglobin and Hematocrit Stat Lab 08/23/24 16:34 Ordered PRBC [Leukocyte Reduced RBC] Routine Lab 08/22/24 07:50 Results Type and Screen Routine Lab 08/22/24 07:50 Results Pathology: Surgical [PTH] Routine Pth 08/23/24 14:37 Received Completed Studies During Hospitalization Category Date Time Status CTA abdomen pelvis [CT angio abdomen pelvis [id number]] Stat Cat Scan 08/22/24 08:19 Completed Laboratory Last Values WBC 12.39 10^3/uL (3.29-11.43) H 08/23/24 01:48 RBC 2.99 10^6/uL (3.85-5.65) L 08/23/24 01:48 Hgb 8.20 g/dL (11.27-16.99) L 08/23/24 11:03 Hct 24.1 % (37-53) L 08/23/24 11:03 MCV 94.6 fl (82-101) 08/23/24 01:48 MCH 30.1 pg (27-33) 08/23/24 01:48 MCHC 31.8 g/dL (30-55) 08/23/24 01:48 RDW 13.5 % (12.1-15.1) 08/23/24 01:48 Plt Count 174 10^3/cmm (157-399) 08/23/24 01:48 MPV 11.1 fL (7.4-10.4) H 08/23/24 01:48 Neut % (Auto) 83.4 % 08/23/24 01:48 Lymph % (Auto) 9.9 % 08/23/24 01:48 [place] % (Auto) 4.8 % 08/23/24 01:48 Eos % (Auto) 0.6 % 08/23/24 01:48 Baso % (Auto) 0.3 % 08/23/24 01:48 Neut # (Auto) 10.32 10^3/uL (1.8-7.7) H 08/23/24 01:48 Lymph # (Auto) 1.2 10^3/uL (0.8-4.8) 08/23/24 01:48 [place] # (Auto) 0.6 10^3/uL (0.2-0.9) 08/23/24 01:48 Eos # (Auto) 0.1 10^3/uL (0.0-0.8) 08/23/24 01:48 Baso # (Auto) 0.0 10^3/uL (0.0-0.1) 08/23/24 01:48 Nucleated RBC % (auto) 0 % 08/23/24 01:48 Nucleated RBCs # 0.0 /100WBC 08/23/24 01:48 PT 14.00 SECONDS (12.1-14.9) 08/22/24 04:27 INR 1.01 (0.8-1.2) 08/22/24 04:27 APTT 29.7 SECONDS (23.9-36.7) 08/22/24 04:27 Sodium 137 mmol/L (136-145) 08/23/24 01:48 Potassium 3.6 mmol/L (3.5-5.1) 08/23/24 01:48 Chloride 104 mmol/L (98-107) 08/23/24 01:48 Carbon Dioxide 20 mmol/L (22-29) L 08/23/24 01:48 Anion Gap 16.6 (5-19) 08/23/24 01:48 BUN 13 mg/dL (8-23) 08/23/24 01:48 Creatinine 1.1 mg/dL (0.7-1.2) 08/23/24 01:48 GFR Calculation 66.2 mL/min (90-130) L 08/23/24 01:48 Glucose 159 mg/dL (65-115) H 08/23/24 01:48 Estimat Average Glucose 108 08/23/24 07:20 Hemoglobin A1c 5.4 % (4.0-6.0) 08/23/24 07:20 Calculated Osmolality 287 mOsm/kg (285-295) 08/23/24 01:48 Calcium 8.2 mg/dL (8.5-10.5) L 08/23/24 01:48 Phosphorus 3.0 mg/dL (2.5-4.5) 08/23/24 01:48 Magnesium 2.7 mg/dL (1.7-2.3) H 08/23/24 01:48 Iron 87 ug/dL (59-158) 08/23/24 01:48 TIBC 261 mcg/dl 08/23/24 01:48 % Saturation 33.3 % (20-50) 08/23/24 01:48 Unsat Iron Binding 174 ug/dL (112-347) 08/23/24 01:48 Total Bilirubin 0.2 mg/dL (0.15-1.2) 08/22/24 04:27 AST 18 U/L (0-40) 08/22/24 04:27 ALT 8 U/L (0-41) 08/22/24 04:27 Alkaline Phosphatase 108 U/L (40-130) 08/22/24 04:27 Total Protein 5.8 g/dL (6.6-8.7) L 08/22/24 04:27 Albumin 3.6 g/dL (3.5-5.2) 08/22/24 04:27 Globulin 2.2 g/dL (1.3-4.6) 08/22/24 04:27 Lipase 25 U/L (13-60) 08/22/24 04:27 Vitamin B12 261 pg/mL (232-1245) 08/23/24 01:48 TSH 2.04 uIU/mL (0.27-4.20) 08/23/24 01:48 Urine Color Yellow (Yellow) 08/22/24 12:30 Urine Appearance Clear (CLEAR) 08/22/24 12:30 Urine pH 6.0 (5-7) 08/22/24 12:30 Ur Specific [place] 1.062 (1.005-1.030) H 08/22/24 12:30 Urine Protein Negative (Negative) 08/22/24 12:30 Urine Glucose (UA) Negative (Normal) 08/22/24 12:30 Urine Ketones Negative (Negative) 08/22/24 12:30 Urine Blood Negative (Negative) 08/22/24 12:30 Urine Nitrate Negative (Negative) 08/22/24 12:30 Urine Bilirubin Negative (Negative) 08/22/24 12:30 Urine Urobilinogen 1.0 mg/dL (Negative) 08/22/24 12:30 Ur Leukocyte Esterase Negative (Negative) 08/22/24 12:30 Urine RBC 0-2 /hpf (0-2) 08/22/24 12:30 Urine WBC 0-5 /hpf (0-5) 08/22/24 12:30 Ur Squamous Epith Cells 0-5 /hpf (0-5) 08/22/24 12:30 Amorphous Sediment Not Reportable 08/22/24 12:30 Urine Bacteria None seen /hpf (NONE) 08/22/24 12:30 Hyaline Casts 0-4 /lpf H 08/22/24 12:30 Blood Type O Positive 08/22/24 07:50 Rho(D) Type Rh positive 08/22/24 07:50 Antibody Screen Negative 08/22/24 07:50 Crossmatch See Detail 08/22/24 07:50 Radiology Impressions Abdomen/Pelvis CTA 08/22/24 08:19 IMPRESSION: 1. Diverticulosis. No definite active GI bleeding site identified. 2. Fatty infiltration of the liver. 3. Acute on chronic compression fracture involving L2 similar to that seen on prior exam. 4. Please see above comments for additional details. Recent Clincial Data Last Vital Signs Temp 97.8 F 08/23/24 14:52 Pulse 74 08/23/24 14:52 Resp 18 08/23/24 14:52 BP 134/79 08/23/24 14:52 Pulse Ox 100 08/23/24 14:52 O2 Del Method Room Air 08/23/24 14:52 Vital Signs Temp Pulse Resp BP Pulse Ox O2 Del Method 08/23/24 14:52 97.8 F 74 18 134/79 100 Room Air 08/23/24 14:47 82 18 139/77 100 Room Air 08/23/24 14:37 97.8 F 70 18 128/68 100 Room Air 08/23/24 11:25 98.3 F 87 17 143/80 97 Room Air 08/23/24 08:57 105 H 22 H 98 Room Air 08/23/24 07:20 97.5 F L 105 H 22 H 127/76 98 Room Air 08/23/24 05:48 99 Intake & Output/Weight 08/21/24 08/22/24 08/23/24 08/24/24 06:59 06:59 06:59 06:59 Intake Total 0 / 0 2069 / 2069 0 / 0 Balance 0 / 0 2069 0 / 0 Weight 90.718 kg 86.5 kg Vitals Last Vital Signs Temp 97.8 F 08/23/24 14:52 Pulse 74 08/23/24 14:52 Resp 18 08/23/24 14:52 BP 134/79 08/23/24 14:52 Pulse Ox 100 08/23/24 14:52 O2 Del Method Room Air 08/23/24 14:52 TS Medications Medications Acetaminophen (Acetaminophen 500 Mg Tablet) 500 mg PO Q4H PRN PRN Reason: fever Albuterol/Ipratropium (Ipratropium-Albuterol 3 Ml Neb) 3 ml INHALATION Q6H PRN PRN Reason: SHORTNESS OF BREATH Sodium Chloride (Sodium Chloride 0.9%) 1,000 mls @ 75 mls/hr IV .[id number] ELIAS Last Admin: 08/23/24 09:42 Dose: 75 mls/hr Metoprolol Tartrate (Metoprolol Tartrate 25 Mg Tablet) 12.5 mg PO BID@0900,2100 [facility] Morphine Sulfate (Morphine 4 Mg/Ml Sdv 1 Ml) 2 mg IVP Q4H PRN PRN Reason: back pain Ondansetron HCl (Ondansetron 2 Mg/Ml Sdv 2 Ml) 4 mg IVP Q6H PRN PRN Reason: NAUSEA AND VOMITING Last Admin: 08/23/24 00:58 Dose: 4 mg Oxycodone HCl (Oxycodone 5 Mg Ir Tab/Cap) 5 mg PO Q4H PRN PRN Reason: back pain Pantoprazole Sodium (Pantoprazole 40 Mg Sdv) 40 mg IVP BID [facility] Last Admin: 08/23/24 09:42 Dose: 40 mg Sodium Chloride (Sodium Chloride 0.9% 100 Ml Bag) 50 ml IV PRN PRN PRN Reason: Blood transfusion prime and flush Stop: 08/24/24 15:20 Discontinued Medications Bisacodyl (Bisacodyl 5 Mg Tablet) 10 mg PO ONCE ONE Stop: 08/22/24 14:01 Last Admin: 08/22/24 13:50 Dose: 10 mg Bisacodyl (Bisacodyl 5 Mg Tablet) 10 mg PO ONCE ONE Stop: 08/22/24 14:16 Last Admin: 08/22/24 15:07 Dose: Not Given Sodium Chloride (Sodium Chloride 0.9%) 1,000 mls @ 999 mls/hr IV .Q1H1M ONE Stop: 08/22/24 05:49 Last Infusion: 08/22/24 21:00 Dose: Infused Sodium Chloride (Sodium Chloride 0.9%) 500 mls @ 15 mls/hr IV .Q24H PRN PRN Reason: COLONOSCOPY FLUIDS Stop: 08/24/24 13:35 Iohexol (Iohexol 350 Mg/Ml 500 Ml Btl (Per Ml)) 0 ml IV ONCE ONE Stop: 08/22/24 08:46 Last Admin: 08/22/24 08:45 Dose: 100 ml Lidocaine HCl (Lidocaine 2% Inj 20 Ml) Confirm Administered Dose 20 ml .ROUTE .STK-MED ONE Stop: 08/23/24 08:57 Lidocaine HCl (Lidocaine 2% Viscous 15 Ml Udc) 1 ml TOPICAL PRN PRN PRN Reason: Anesthetic prior to IV start Lidocaine HCl (Lidocaine 1% 10 Ml Inj) 0.1 ml INTRADERMA PRN PRN PRN Reason: anesthetic prior to IV start Magnesium Citrate (Magnesium Citrate Btl 296 Ml) 296 ml PO 1200,2000 [facility] Stop: 08/22/24 20:01 Last Admin: 08/22/24 21:00 Dose: 296 ml Metoprolol Tartrate (Metoprolol Tartrate 25 Mg Tablet) 12.5 mg PO ONCE ONE Stop: 08/23/24 08:28 Last Admin: 08/23/24 09:43 Dose: 12.5 mg Midazolam HCl (Midazolam 1 Mg/Ml Inj 2 Ml) 2 mg IVP Q5M PRN PRN Reason: Preop Anxiety Morphine Sulfate (Morphine 4 Mg/Ml Sdv 1 Ml) 0 mg IVP Q5M PRN PRN Reason: Breakthrough Pain PACU PhaseII Ondansetron HCl (Ondansetron 2 Mg/Ml Sdv 2 Ml) 4 mg IVP Q15M PRN PRN Reason: Nausea/Vomiting PACU PHASE II Propofol (Propofol 10 Mg/Ml Sdv 20 Ml) Confirm Administered Dose 400 mg .ROUTE .STK-MED ONE Stop: 08/23/24 08:57 Propofol (Propofol 10 Mg/Ml Sdv 20 Ml) Confirm Administered Dose 200 mg .ROUTE .STK-MED ONE Stop: 08/23/24 13:26 Sodium Chloride (Sodium Chloride 0.9% 100 Ml Bag) 50 ml IV PRN PRN PRN Reason: Blood transfusion prime and flush Stop: 08/23/24 07:37 Sodium Chloride (Sodium Chloride 0.9 % (Flush) Syringe 10 Ml) 2 ml IV DIRECTED PRN PRN Reason: EGD MEDICATION FLUSH Stop: 08/24/24 13:35 Allergies No Known Allergies Allergy (Verified 08/20/24 11:27) Home Medications atenolol 50 mg tablet 50 mg PO QPM 08/20/24 [History Confirmed 08/22/24] Discharge Plan Discharge Patient Disposition: Home Condition: Stable Prescriptions: No Action atenolol 50 mg tablet 50 mg PO QPM Referrals: Micah Brewer DO [Primary Care Provider] - (Prefers a Friday Afternoon appt; that is when is off of work, but will make any day work. ) Discharge Diet: Clear Liquid Discharge Activity: Resume usual activity and Increase activity as tolerated Patient Instructions: GI Post Discharge Instructions w/ Anesthesia, Opioid Safety Transfer Attestations Time Spent in Transfer Care: greater than 30 min Specific Discharge Activities: educating patient, educating and/or supporting family/caregiver, discussing with pcp/other providers, discussing with employment evaluator/case manager/social workers/dc planners, documenting/other paperwork and evaluating patient/reviewing data Status at Transfer: Cognitive status at transfer: cognitively intact; Behavioral status at transfer: cooperative; Functional status at transfer: independent ambulation; Overall status at transfer: patient is not back to baseline Quality Metrics Clinical Quality Measures [ No reported AMI, CVA or VTE this stay] Coding Level of Care Code 50274 Total time (in minutes) for Discharge: 70 Diagnoses Bleeding per rectum K62.5 Diverticulosis large intestine w/o perforation or abscess w/bleeding K57.31
[2024-08-23 18:00] LABS: Hematocrit 21.3 % (37-53)
--- NOTE | 2024-08-23 18:56 | PC.NURSE ---
pt has been accepted to [facility] in [place], [place]room 695.report phoned meli lozano rn.pt's family is aware.prbc's began as ordered.timothy siddiqi to notify [facility] for transport.
[2024-08-24 00:06] VITALS: BP 129/66; PULSE 80; RESP 20; TEMP 36.5; O2SAT 98
[2024-08-24] MEDS: sodium chloride 0.9% 1,000 ML 75 ML IV (00:20)
--- NOTE | 2024-08-24 00:45 | PC.NURSE ---
Called and made Marlene LEVI aware at [facility] that patient will not be transferring tonight due to miscommunication with ambulance. Patient will transfer between 8am-9am now.
[2024-08-24 01:42] VITALS: BP 128/72; PULSE 62; RESP 16; TEMP 36.7; O2SAT 99
[2024-08-24 01:51] LABS: Basophils % 0.3 %; Eosinophils # 0.1 10^3/uL (0.0-0.8); Eosinophils % 0.7 %; Hematocrit 26.4 % (37-53); Lymphocytes # 1.6 10^3/uL (0.8-4.8); Lymphocytes % 18.1 %; Mean Corpuscular HGB Conc 34.1 g/dL (30-55); Monocytes # 0.6 10^3/uL (0.2-0.9); Monocytes % 6.8 %; Neutrophils # 6.31 10^3/uL (1.8-7.7); Neutrophils % 72.6 %; Nucleated Red Blood Cells % 0.2 %; Platelet Count 141 10^3/cmm (157-399); Red Cell Distribution Width 13.9 % (12.1-15.1); White Blood Count 8.69 10^3/uL (3.29-11.43)
[2024-08-24 02:09] LABS: Alanine Aminotransferase 7 U/L (0-41); Albumin Level 3.1 g/dL (3.5-5.2); Alkaline Phosphatase 87 U/L (40-130); Anion Gap 12.7 (5-19); Aspartate Amino Transferase 18 U/L (0-40); Blood Urea Nitrogen 14 mg/dL (8-23); Calcium 7.6 mg/dL (8.5-10.5); Carbon Dioxide 23 mmol/L (22-29); Chloride 104 mmol/L (98-107); Creatinine Clr Calc Pharmacy 80.2472; Globulin 1.7 g/dL (1.3-4.6); Glomerular Filtration Rate 73.9 mL/min (90-130); Glucose 111 mg/dL (65-115); Osmolality Calculated 283 mOsm/kg (285-295); Potassium 3.7 mmol/L (3.5-5.1); Sodium 136 mmol/L (136-145); Total Bilirubin 1.2 mg/dL (0.15-1.2); Total Protein 4.8 g/dL (6.6-8.7)
[2024-08-24 02:33] LABS: Folate Level 8.4 ng/mL (4.5-32.2)
--- OUTSIDE RECORDS SUMMARY | 2024-08-24 05:42 | XMS_ITS | Encounter Summary ---
Author Organization [employer] Address [address] [place] [address] Care Team Providers Care Hard Rock Miner Blasting Name Role Phone Unavailable Primary Care Provider Unavailabl e Encounter Details Date Type Department Care Team (Late st Contact Info) Description 08/10/2024 External Device Data STL ABSTRACTION Provider, Abstract NO ADDRESS ON FILE Social History Tobacco Use Types Packs/Day Years Used Date Smoking Tobacco: Never Smokeless Tobacco: Current Comments:Quit smoking: one c an daily x 40 years Alcohol Use Standard Drinks/Week Comments No 0 (1 standard drink = 0.6 oz pur e alcohol) Financial Resource Strain Answer Date R ecorded How hard is it for you to pa y for the very basics like food, housing, medical care, and heating? Somewhat hard 06/13/2021 Food Insecurity Answer Date Recorded In the past 12 months, have you worried that your food would run out before you had money to buy more? Sometimes true 2020 In the past 12 months, did y ou run out of food and didn't have money to buy more? Never true 06/13/2021 Transportation Needs Answer Date Record ed In the past 12 months, has l ack of transportation kept you from medical appointments or from getting medications? 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
--- OUTSIDE RECORDS SUMMARY | 2024-08-24 05:42 | XMS_ITS | Encounter Summary ---
Author Organization [facility] Address [address] [place] [address] Care Team Providers Care Pull Up Hand Name Role Phone Micah Early MD Primary Care Provider [phone] Encounter Details Date Type Department Care Team (Latest Contact Info) Description 08/29/1999 Outpatient Historical [facility] [address] [place] [address] Mario Faulkner, DO [address] [place] [id number] Backache, unspecified (Primary Dx); Spasm of muscle; Nonallopathic lesion of thoracic region, not elsewhere classified Social History Tobacco Use Types Packs/Day Years Used Date Smoking Tobacco: Never Assessed Sex and Gender Information Value Date Recorded Sex Assigned at Not on file 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
--- OUTSIDE RECORDS SUMMARY | 2024-08-24 05:42 | XMS_ITS | Encounter Summary ---
Author Organization [facility] Address [address] [place] [address] Care Team Providers Care Veterans' Coordinator Name Role Phone Micah Early MD Primary Care Provider Encounter Details Date Type Department Care Team (Latest Contact Info) Description 11/13/2001 Outpatient Historical [facility] Family Medicine [place] [address] [address] Rashi Cadet MD [address] [address] Lateral epicondylitis (Primary Dx); DERMATITIS NOS Social History Tobacco Use Types Packs/Day Years Used Date Smoking Tobacco: Never Assessed Sex and Gender Information Value Date Recorded Sex Assigned at Not on file 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
--- OUTSIDE RECORDS SUMMARY | 2024-08-24 05:42 | XMS_ITS | Encounter Summary ---
Author Organization [facility] Address [address] [place] [address] Care Team Providers Care Raspberry Checker Name Role Phone Micah Early MD Primary Care Provider + [phone] Encounter Details Date Type Department Care Team (Latest Contact Info) Description 05/16/1999 Outpatient Historical 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
--- OUTSIDE RECORDS SUMMARY | 2024-08-24 05:42 | XMS_ITS | Encounter Summary ---
Author Organization [facility] Address [address] [place] [address] Care Team Providers Care Qlikview Developer Name Role Phone Micah Early MD Primary Care Provider [phone] Encounter Details Date Type Department Care Team (Latest Contact Info) Description 05/23/1999 Outpatient [facility] [address] [place] [address] Mario Faulkner, DO [address] [place] [phone] Backache, unspecified (Primary Dx); Nonallopathic lesion of thoracic region, not elsewhere classified; Nonallopathic lesion of pelvic region, not elsewhere classified; Sacroiliitis, not elsewhere classified Social History Tobacco Use Types Packs/Day Years Used Date Smoking Tobacco: Never Assessed Sex and Gender Information Value Date Recorded Sex Assigned at Not on file 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 Gender Identity Not on file Sexual Orientation Not on file documented as of this encounter Plan of Treatment Not on file documented as of this encounter Visit Diagnoses Diagnosis Backache, unspecified- Primary Nonallopathic lesion of thoracic region, not elsewhere classified Nonallopathic lesion of pelvic region, not elsewhere classified Sacroiliitis, not elsewhere classified documented in this encounter Care Teams Qlikview Developer Relationship Specialty Start Date End Date Micah Early MD [address] [facility] [address] [place] [address] PCP - General Family Practice 09/09/20 documented as of this encounter
--- OUTSIDE RECORDS SUMMARY | 2024-08-24 05:42 | XMS_ITS | Encounter Summary ---
Author Organization [employer] Address 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
--- OUTSIDE RECORDS SUMMARY | 2024-08-24 05:42 | XMS_ITS | Encounter Summary ---
Author Organization [facility] Address [address] [place] [address] Care Team Providers Care Maid Cleaning Cooking Name Role Phone Micah Early MD Primary Care Provider + [phone] Encounter Details Date Type Department Care Team (Latest Contact Info) Description 01/14/2000 Outpatient Historical [facility] Family Medicine [place] [address] [address] Codey Aguilar DO NO ADDRESS ON FILE Infective otitis externa, unspecified (Primary Dx); Contact dermatitis and other eczema due to other specified agent Social History Tobacco Use Types Packs/Day Years Used Date Smoking Tobacco: Never Assessed Sex and Gender Information Value Date Recorded Sex Assigned at Not on file 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
--- OUTSIDE RECORDS SUMMARY | 2024-08-24 05:42 | XMS_ITS | Encounter Summary ---
Author Organization [facility] Address [address] [place] [address] Care Team Providers Care Legal Transcriptionist Name Role Phone Micah Early MD Primary Care Provider +1 [phone] Encounter Details Date Type Department Care Team (Latest Contact Info) Description 08/25/2000 Outpatient Historical [facility] Family Medicine [place] [address] [address] Codey Aguilar DO NO ADDRESS ON FILE Acute sinusitis, unspecified (Primary Dx); Acute bronchitis Social History Tobacco Use Types Packs/Day Years Used Date Smoking Tobacco: Never Assessed Sex and Gender Information Value Date Recorded Sex Assigned at Not on file 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
--- OUTSIDE RECORDS SUMMARY | 2024-08-24 05:42 | XMS_ITS | Encounter Summary ---
Author Organization [facility] Address [address] [place] [address] Care Team Providers Care Headend Technician Name Role Phone Micah Early MD Primary Care Provider Encounter Details Date Type Department Care Team (Latest Contact Info) Description 11/30/[address] 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
--- OUTSIDE RECORDS SUMMARY | 2024-08-24 05:42 | XMS_ITS | Encounter Summary ---
Author Organization [facility] Address [address] [place] [address] Care Team Providers Care Hand Plate Stacker Name Role Phone Micah Early MD Primary Care Provider [phone] Encounter Details Date Type Department Care Team (Latest Contact Info) Description 05/11/1999 Outpatient Historical [facility] [address] [place] [address] Mario Faulkner, DO [address] [place] [id number] Backache, unspecified (Primary Dx); Nonallopathic lesion of pelvic region, not elsewhere classified; Nonallopathic lesion of lumbar region, not elsewhere classified Social History Tobacco Use Types Packs/Day Years Used Date Smoking Tobacco: Never Assessed Sex and Gender Information Value Date Recorded Sex Assigned at Not on file 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
--- OUTSIDE RECORDS SUMMARY | 2024-08-24 05:42 | XMS_ITS | Encounter Summary ---
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 Gender Identity Not on file Sexual Orientation Not on file documented as of this encounter Plan of Treatment Not on file documented as of this encounter Procedures Procedure Name Priority Date/Time Associated Diagnosis Comments MRI KNEE WO CONTRAST LEFT Routine 03/04/2006 3:15 PM CDT documented in this encounter Results * MRI KNEE WO CONTRAST LEFT (03/04/2006 3:15 PM CDT) Anatomical Region Laterality Modality Lower Extremity Other 03/04/2006 3:15 PM CDT Narrative 04/13/2009 8:32 AM CDT MRI left Knee Without Contrast 03/04/2006Indication: LT KNEE PAINComparison: None availableTechnique: Proton density sagittal, T1 coronal, T2 fat-sat sagittal and axial, STIR coronal. Findings: The ACL, PCL, MCL, and LCL ??complex are intact. A small joint effusion is present. A tinypopliteal cyst is present. The extensor mechanism is intact. Complex tear of the body, posteriorjunction, and posterior horn of the medial meniscus is identified. A lobulated cystic lesiondissecting about the mesial aspect of the posterior medial joint line is seen suspicious for smallparameniscal cyst. No unequivocal grade 3 lateral meniscal signal is identified. Early marginalosteophyte formation of the medial compartment is present. Islands of patchy marrow signalabnormality of slight increase in signal on T1-weighted sequences relative to skeletal muscle isnoted with corresponding increase in signal fluid-sensitive sequence most consistent with redmarrow conversion. No additional osseous or soft tissue abnormality is identified. A 7 mmintra-articular body of intermediate signal on T1 and fluid-sensitive sequences within the medialrecess of the suprapatellar pouch is identified system small cartilaginous intra-articularbody. Impression: #1. Complex tear of the body, posterior junction, and posterior horn of the medial meniscus withassociated small dissecting parameniscal cyst about the mesial aspect of the posterior medial jointline. #2. Early degenerative change of the medial compartment. #3. Small cartilaginous intra-articular body. - Dictated By: ??Justen Allison M.D. Electronically Signed By: ??Justen Allison M.D. Date Signed: 03/05/06 Procedure Note Provider, Historical - 06/08/2009 MRI left Knee Without Contrast 03/04/2006Indication: LT KNEE PAINComparison: None availableTechnique: Proton density sagittal, T1 coronal, T2 fat-sat sagittal and axial, STIRcoronal. Findings: The ACL, PCL, MCL, and LCL complex are intact. A small joint effusion ispresent. A tinypopliteal cyst is present. The extensor mechanism is intact. Complex tear of the body,posteriorjunction, and posterior horn of the medial meniscus is identified. A lobulated cysticlesiondissecting about the mesial aspect of the posterior medial joint line is seen suspicious for smallparameniscalcyst. No unequivocal grade 3 lateral meniscal signal is identified. Early marginalosteophyte formationof the medial compartment is present. Islands of patchy marrow signalabnormality of slight increase insignal on T1-weighted sequences relative to skeletal muscle isnoted with corresponding increase in signalfluid-sensitive sequence most consistent with redmarrow conversion. No additional osseous or soft tissueabnormality is identified. A 7 mmintra-articular body of intermediate signal on T1 and fluid-sensitivesequences within the medialrecess of the suprapatellar pouch is identified system smallcartilaginous intra-articularbody. Impression: #1. Complex tear of the body, posterior junction, and posterior horn ofthe medial meniscus withassociated small dissecting parameniscal cyst about the mesial aspectof the posterior medial jointline. #2. Early degenerative change of the medial compartment. #3. Small cartilaginous intra-articular body. - Dictated By: Justen Allison M.D. Electronically Signed By: Justen Allison M.D. Date Signed: 03/05/06 Codey Aguilar DO MR ORDERABLES Final Result documented in this encounter Visit Diagnoses Not on filedocumented in this encounter Care Teams Brick And Tile Making Machine Operator Relationship Specialty Start Date End Date Micah Early MD [address] [phone] PCP - General Family Practice 09/09/20 documented as of this encounter
--- OUTSIDE RECORDS SUMMARY | 2024-08-24 05:42 | XMS_ITS | Encounter Summary ---
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
--- OUTSIDE RECORDS SUMMARY | 2024-08-24 05:42 | XMS_ITS | Encounter Summary ---
Author Organization [facility] Address 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
--- OUTSIDE RECORDS SUMMARY | 2024-08-24 05:42 | XMS_ITS | Clinical Summary ---
Author Organization [facility] Address [address] [place] [address] Care Team Providers Care Reducing Machine Operator Name Role Phone Micah Early MD Primary Care Provider +1 [phone] Allergies No known active allergies Medications atenoloL (TENORMIN) 50 mg tabletIndications :Benign hypertension Take 1 Tablet (50 mg) by mouth daily. 90 Tablet 3 01/17/2020 Active Active Problems Problem Noted Date Diagnosed Date Tobacco use 08/11/2015 Immunizations Immunization Administration Dates Next Due (ADACEL/BOOSTRIX)(10 YR UP) TDAP VACCINE, 0.5ML, IM 05/05/2020 (TDVAX)(7 YRS UP) TETANUS AN D DIPHTHERIA TOXOIDS, ADSORBED (2 LF OF TETANUS TOXOID AND 2 LF OF DIPHTHERIA TOXOID), 0.5ML (PF), IM 11/30/2001 Hepatitis A Vaccine 10/24/2005,06/06/2005,2004 Family History Medical History Relation Name Comments Healthy Father Heart Disease Maternal Grandfather Heart Disease Maternal Grandmother Heart Disease Mother Unknown Paternal Grandfather Cancer Paternal Grandmother Breast Cancer Neg Hx Colon Cancer Neg Hx Relation Name Status Comments Father Alive Maternal Grandfather Maternal Grandmother Mother Alive Paternal Grandfather Paternal Grandmother Social History Tobacco Use Types Packs/Day Years Used Date Smoking Tobacco: Never Smokeless Tobacco: Current Tobacco Cessation:Ready to Q uit: No; Counseling Given: Yes Comments:one can daily x 40 years Alcohol Use Standard Drinks/Week Comments No 0 (1 standard drink = 0.6 oz pur e alcohol) Sex and Gender Information Value Date Recorded Sex Assigned at Not on file 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 Gender Identity Not on file Sexual Orientation Not on file Last Filed Vital Signs Vital Sign Reading Time Taken Comments Blood Pressure 156/70 11/22/2020 2:29 PM CDT Pulse 96 11/22/2020 2:29 PM CDT Temperature 39.4 ??C (102.9 ??F) 11/22/2020 2:29 PM C DT Respiratory Rate 16 11/22/2020 2:29 PM CDT Oxygen Saturation 96% 11/22/2020 2:29 PM CDT Inhaled Oxygen Concentration - - Weight 89.9 kg (198 lb 3.2 oz) 11/22/2020 2:29 P M CDT Height 185.4 cm (6' 1 ) 11/22/2020 2:29 PM CDT Body Mass Index 26.15 11/22/2020 2:29 PM CDT Plan of Treatment Health Maintenance Due Date Last Done Comments Pre-Diabetes and Diabetes Screening 1954 FIT/ DNA Q 3 YEARS (AUTO ORDER) 1972 FIT/FOBT Q 1 YEAR (AUTO ORDER) 1972 FLEX SIG/CT COLONOGRAPHY Q 5 YEARS (AUTO ORDER) 1972 FIT-DNA Q 3 years 1999 FIT/FOBT Q 1 year 1999 Flex Sig/CT Colonography Q 5 years 1999 PNEUMOCOCCAL VACCINE 65+ YEA RS (1 of 1 - PCV) 2004 ZOSTER VACCINE (1 of 2) 2004 INFLUENZA VACCINE (#1) 2024 0, 12/14/2019, 11/05/2018, Additional history exists [place] Preventative Visit/Annual Wellness Visit 07/21/2024 RSV VACCINE (60+ or ) (1 - 1-dose 75+ series) 2029 DTAP/TDAP/TD VACCINES (2 - T d or Tdap) 05/05/2030 05/05/2020, 11/30/2001 COLORECTAL CANCER SCREENING (AUTO ORDER) 01/18/2032 01/17/2022 COLORECTAL SCREENING 01/18/2032 01/17/2022 Colorectal Cancer Screening (AUTO ORDER) 01/18/2032 Colorectal Cancer Screening 01/18/[address] [address] DUAL COMPLETE Care Teams Reducing Machine Operator Relationship Specialty Start Date End Date Micah Early MD [address] [phone] PCP - General Family Practice 09/09/20
--- OUTSIDE RECORDS SUMMARY | 2024-08-24 05:42 | XMS_ITS | Encounter Summary ---
Author Organization [facility] Address [address] [place] [address] Care Team Providers Care Filterer Name Role Phone Micah Early MD Primary Care Provider + -[phone] Encounter Details Date Type Department Care Team (Latest Contact Info) Description 09/22/2002 Outpatient Historical [facility] Family Medicine- [address] [phone] Rashi Cadet MD [address] [phone] ENTHESOPATHY, SITE NOS (Primary Dx) Social History Tobacco Use Types Packs/Day Years Used Date Smoking Tobacco: Never Assessed Sex and Gender Information Value Date Recorded Sex Assigned at Not on file 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
--- OUTSIDE RECORDS SUMMARY | 2024-08-24 05:42 | XMS_ITS | Encounter Summary ---
Author Organization [facility] Address [address] [place] [address] Care Team Providers Care Abstracter Name Role Phone Micah Early MD Primary Care Provider + -[phone] Encounter Details Date Type Department Care Team (Latest Contact Info) Description 10/01/2004 Outpatient Historical [facility] Family Medicine [place] [address] [address] Rashi Cadet MD [address] [phone] HEMATURIA (Primary Dx) Social History Tobacco Use Types Packs/Day Years Used Date Smoking Tobacco: Never Assessed Sex and Gender Information Value Date Recorded Sex Assigned at Not on file 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
--- OUTSIDE RECORDS SUMMARY | 2024-08-24 05:42 | XMS_ITS | Encounter Summary ---
Author Organization [facility] Address 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
--- OUTSIDE RECORDS SUMMARY | 2024-08-24 05:42 | XMS_ITS | Clinical Summary ---
Author Organization [facility] Address [address] [place] [address] Care Team Providers Care Carving Machine Operator Name Role Phone Unavailable Primary Care Provider Unavailabl e Allergies Active Allergy Reactions Criticality Noted Date Comments Meloxicam Blood Disorder High 07/18/2022 GI bleed Medications triamcinolone acetonide (KENALOG) 0.1 % Cream APPLY A THIN LAYER TOPICALLY THREE TIMES DAILY TO AFFECTED AREA NEEDED 2 Active atenoloL (TENORMIN) 50 mg tabletIndications: HTN (hypertension), benign Take 1 Tablet (50 mg) by mouth daily. 90 Tablet 3 2 Active pantoprazole (PROTONIX) 40 mg Tablet, Delayed Release (E.C.) TAKE 1 TABLET BY MOUTH ONCE DAILY FOR SIX WEEKS 2 Active tiZANidine (ZANAFLEX) 4 mg Tablet TAKE 1/2 (ONE-HALF) TABLET BY MOUTH THREE TIMES DAILY NEEDED FOR SPASMS 2 Active lidocaine (LIDODERM) 5 % Adhesive Patch, Medicated APPLY ONE PATCH TOPICALLY, ON FOR 12 HOURS, OFF FOR 12 HOURS 2 Active fluticasone propionate (FLONASE) 50 mcg/spray [facility], Suspension nasal inhalerIndications :Acute non-recurrent pansinusitis Administer 2 Sprays in each nostril daily. 16 Gram 4 Active cetirizine (ZyrTEC) 10 mg tabletIndications: Seasonal allergic rhinitis, unspecified trigger Take 1 Tablet (10 mg) by mouth daily. 90 Tablet 1 4 Active neomycin-polymyxin -dexAMETHasone (MAXITROL) 3.5mg/mL-10,000 unit/mL-0.1 % suspensionIndicati ons:Acute bacterial conjunctivitis of right eye Administer 1 Drop in right eye every 4 hours. 5 mL 4 Active Active Problems Problem Noted Date Diagnosed Date Osteoarthritis of spine with radiculopathy, lumb ar region 07/18/2022 Compression fracture of lumb ar vertebra with routine healing 07/18/2022 HTN (hypertension), benign 04/25/2022 History of colon polyps 04/25/2022 Tobacco use 08/11/2015 Encounters Date Type Department Care Team Description 08/23/2024 Hospital Encounter [address] [place] [address] Fabrizio Choudhary MD 08/12/2024 External Device Data [facility] ABSTRACTION Provider, Abstract 08/11/2024 External Device Data ST[facility] ABSTRACTION Provider, Abstract 08/10/2024 External Device Data ST[facility] ABSTRACTION Provider, Abstract 08/10/2024 External Device Data [facility] ABSTRACTION Provider, Abstract 08/03/2024 External Device Data [facility] ABSTRACTION Provider, Abstract 07/27/2024 External Device Data [facility] ABSTRACTION Provider, Abstract from Last 3 Months Immunizations Immunization Administration Dates Next Due (ADACEL/BOOSTRIX)(10 YR UP) TDAP VACCINE, 0.5ML, IM 05/05/2020 (HAVRIX/VAQTA)(19 YRS UP) HE PATITIS A VACCINE ADULT DOSAGE 1 ML IMM 10/24/2005,05/06/2005 (TDVAX)(7 YRS UP) TETANUS AN D DIPHTHERIA TOXOIDS, ADSORBED (2 LF OF TETANUS TOXOID AND 2 LF OF DIPHTHERIA TOXOID), 0.5ML (PF), IM 11/30/2001 Adacel Vaccine > 7 Yo IM 05/05/2020 Hepatitis A Vaccine 10/24/2005,06/06/2005,2004 Family History Medical [...] to Q uit: No; Counseling Given: Yes Comments:Quit smoking: one can daily x 40 years Alcohol Use [...] on file 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 Gender Identity Not on file Sexual Orientation Not on file Last Filed Vital Signs Vital Sign Reading Time Taken Comments Blood Pressure 150/89 10/21/2023 3:12 PM CDT Pulse 75 10/21/2023 2:57 PM CDT Temperature 36.9 ??C (98.4 ??F) 10/21/2023 2:57 PM CD T Respiratory Rate 19 10/21/2023 2:57 PM CDT Oxygen Saturation 99% 10/21/2023 2:57 PM CDT Inhaled Oxygen Concentration - - Weight 91.1 kg (200 lb 12.8 oz) 10/21/2023 2:57 PM CDT Height 185.4 cm (6' 1 ) 10/21/2023 2:57 PM CDT Body Mass Index 26.49 10/21/2023 2:57 PM CDT Plan of Treatment Health Maintenance Due Date Last Done Comments Pre-Diabetes and Diabetes Screening 1954 FIT-DNA Q 3 years 1999 FIT/FOBT Q 1 year 1999 Flex Sig/CT Colonography Q 5 years 1999 PNEUMOCOCCAL VACCINE 65+ YEA RS (1 of 1 - PCV) 2004 ZOSTER VACCINE (1 of 2) 2004 INFLUENZA VACCINE (#1) 2024 4, 09/22/2023, 04/25/2022, Additional history exists [place] Preventative Visit/Annual Wellness Visit 07/21/2024 06/13/2021 RSV VACCINE (60+ or ) (1 - 1-dose 75+ series) 2029 DTAP/TDAP/TD VACCINES (3 - T d or Tdap) 05/05/2030 05/05/2020, 05/05/2020, 11/30/2001 COLORECTAL SCREENING 01/18/2032 01/17/2022 Colorectal Cancer Screening 01/18/2032 Procedures Procedure Name Priority Date/Time Associated Diagnosis Comments ENDOSCOPY, COLON, DIAGNOSTIC Routine 01/17/2022 Hematochezia Bleeding internal hemorrhoids from Last 3 Months or Most Recently Relevant to Health Maintenance Results * ENDOSCOPY, COLON, DIAGNOSTIC (01/17/2022) Sofia FRIASP GI PROCEDURE ORDERABLES Final Re sult from Last 3 Months or Most Recently Relevant to Health Maintenance Insurance [employer] [facility] [place] Address: [facility] [id number] [id number]
--- OUTSIDE RECORDS SUMMARY | 2024-08-24 05:42 | XMS_ITS | Encounter Summary ---
Author Organization [facility] Address [address] [place] [address] Care Team Providers Care Health Support Specialist Name Role Phone Micah Early MD Primary Care Provider +1 [phone] Encounter Details Date Type Department Care Team (Latest Contact Info) Description 08/23/2002 Outpatient Historical [facility] Family Medicine [address] [address] Codey Aguilar DO NO ADDRESS ON FILE CONTUSION OF WRIST (Primary Dx) Social History Tobacco Use Types Packs/Day Years Used Date Smoking Tobacco: Never Assessed Sex and Gender Information Value Date Recorded Sex Assigned at Not on file 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
--- OUTSIDE RECORDS SUMMARY | 2024-08-24 05:42 | XMS_ITS | Encounter Summary ---
Author Organization [facility] Address [address] [place] [address] Care Team Providers Care Placement Coordinator Name Role Phone Micah Early MD Primary Care Provider +1 [phone] Encounter Details Date Type Department Care Team (Latest Contact Info) Description 10/31/2000 Outpatient Historical [facility] Family Medicine [place] [address] [address] Rashi Cadet MD [address] [address] Unspecified otitis media (Primary Dx); Pain in joint, lower leg Social History Tobacco Use Types Packs/Day Years Used Date Smoking Tobacco: Never Assessed Sex and Gender Information Value Date Recorded Sex Assigned at Not on file 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
--- OUTSIDE RECORDS SUMMARY | 2024-08-24 05:42 | XMS_ITS | Encounter Summary ---
Author Organization [facility] Address [address] [place] [address] Care Team Providers Care Pharmacy Intake Technician Name Role Phone Micah Early MD Primary Care Provider + -[phone] Encounter Details Date Type Department Care Team (Latest Contact Info) Description 06/06/1999 [facility] [address] [place] [address] Mario Faulkner, DO [address] [place] [address] Backache, unspecified (Primary Dx) Social History Tobacco Use Types Packs/Day Years Used Date Smoking Tobacco: Never Assessed Sex and Gender Information Value Date Recorded Sex Assigned at Not on file Legal 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
--- OUTSIDE RECORDS SUMMARY | 2024-08-24 05:42 | XMS_ITS | Encounter Summary ---
Author Organization [facility] Address 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
--- OUTSIDE RECORDS SUMMARY | 2024-08-24 05:42 | XMS_ITS | Encounter Summary ---
Author Organization [email or web address] Address 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
--- OUTSIDE RECORDS SUMMARY | 2024-08-24 05:42 | XMS_ITS | Encounter Summary ---
Author Organization [facility] Address [address] [place] [address] Care Team Providers Care Banjo Repair Person Name Role Phone Micah Early MD Primary Care Provider +1 [phone] Encounter Details Date Type Department Care Team (Latest Contact Info) Description 05/10/2003 Outpatient Historical [facility] Family Medicine- [place] [address] [place] [address] Codey Aguilar, NO ADDRESS ON FILE UNSPECIFIED VIRAL INFECTION (Primary Dx); DERMATITIS NOS Social History Tobacco Use Types Packs/Day Years Used Date Smoking Tobacco: Never Assessed Sex and Gender Information Value Date Recorded Sex Assigned at Not on file 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
--- OUTSIDE RECORDS SUMMARY | 2024-08-24 05:42 | XMS_ITS | Encounter Summary ---
Author Organization [facility] Address [address] [place] [address] Care Team Providers Care Asbestos Worker Helper Name Role Phone Micah Early MD Primary Care Provider + -[phone] Encounter Details Date Type Department Care Team (Latest Contact Info) Description 07/06/1999 Outpatient Historical [facility] [address] [place] [address] Mario Faulkner, DO [address] [place] [address] Acute sinusitis, unspecified (Primary Dx) Social History Tobacco Use Types Packs/Day Years Used Date Smoking Tobacco: Never Assessed Sex and Gender Information Value Date Recorded Sex Assigned at Not on file 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
--- OUTSIDE RECORDS SUMMARY | 2024-08-24 05:42 | XMS_ITS | Encounter Summary ---
Author Organization [facility] Address [address] [place] [address] Care Team Providers Care Program Paraprofessional Name Role Phone Micah Early MD Primary Care Provider [phone] Encounter Details Date Type Department Care Team (Latest Contact Info) Description 09/07/1999 Outpatient [facility] [address] [place] [address] Mario Faulkner, DO [address] [place] [address] Nonallopathic lesion of rib cage, not elsewhere classified (Primary Dx); Other specified arthropathy, site unspecified Social History Tobacco Use Types Packs/Day Years Used Date Smoking Tobacco: Never Assessed Sex and Gender Information Value Date Recorded Sex Assigned at Not on file 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
--- OUTSIDE RECORDS SUMMARY | 2024-08-24 05:42 | XMS_ITS | Encounter Summary ---
Author Organization [facility] Address [address] [place] [address] Care Team Providers Care Financial Representative Name Role Phone Micah Early MD Primary Care Provider [phone] [phone] Encounter Details Date Type Department Care Team (Latest Contact Info) Description 02/11/2006 Outpatient Historical [facility] Family Medicine [place] [address] [address] oCdey Aguilar DO NO ADDRESS ON FILE Pain in Joint, Lower Leg (Primary Dx) Social History Tobacco Use Types Packs/Day Years Used Date Smoking Tobacco: Never Assessed Sex and Gender Information Value Date Recorded Sex Assigned at Not on file 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
--- OUTSIDE RECORDS SUMMARY | 2024-08-24 05:43 | XMS_ITS | Encounter Summary ---
Author Organization [facility] Address [address] [place] [address] Care Team Providers Care Extension Associate Name Role Phone Micah Early MD Primary Care Provider +1 [phone] Encounter Details Date Type Department Care Team (Latest Contact Info) Description 08/30/1998 Outpatient Historical [facility] Family Medicine [address] [address] Codey Aguilar DO NO ADDRESS ON FILE Issue of medical certificates (Primary Dx) Social History Tobacco Use Types Packs/Day Years Used Date Smoking Tobacco: Never Assessed Sex and Gender Information Value Date Recorded Sex Assigned at Not on file 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
--- OUTSIDE RECORDS SUMMARY | 2024-08-24 05:43 | XMS_ITS | Encounter Summary ---
Author Organization [facility] Address [address] [place] [address] Care Team Providers Care City Treasurer Name Role Phone Micah Early MD Primary Care Provider + -[phone] Encounter Details Date Type Department Care Team (Latest Contact Info) Description 08/11/1998 Outpatient Historical [facility] [address] [place] [address] Mario Faulkner, DO [address] [place] [address] Acute sinusitis, unspecified (Primary Dx) Social History Tobacco Use Types Packs/Day Years Used Date Smoking Tobacco: Never Assessed Sex and Gender Information Value Date Recorded Sex Assigned at Not on file 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
--- OUTSIDE RECORDS SUMMARY | 2024-08-24 05:43 | XMS_ITS | Encounter Summary ---
Author Organization [facility] Address [address] [place] [address] Care Team Providers Care Train Clerk Name Role Phone Micah Early MD Primary Care Provider +1 [phone] Encounter Details Date Type Department Care Team (Latest Contact Info) Description 08/15/[address] 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
--- OUTSIDE RECORDS SUMMARY | 2024-08-24 05:43 | XMS_ITS | Encounter Summary ---
Author Organization [facility] Address [address] [place] [address] Care Team Providers Care Proposal Specialist Name Role Phone Micah Early MD Primary Care Provider +1 [phone] Encounter Details Date Type Department Care Team (Latest Contact Info) Description 01/24/1999 Outpatient Historical 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
[2024-08-24 06:00] VITALS: BMI 25.0
[2024-08-24 06:19] VITALS: PULSE 60; RESP 19; TEMP 37; O2SAT 95
--- NOTE | 2024-08-24 08:18 | PC.NURSE ---
[facility] arrived to transport Renato Reyes to [facility] at 0800am. Patient transporting via ALS truck. Patients notified, [facility] called and updating on patient status and transport. Vital Signs stable upon departure.
--- NOTE | 2024-08-24 15:46 | P.PN_ITS ---
Subjective 2 Subjective: Patient was accepted last night to [facility] ICU but could not be transferred because of transportation. Received 2 units blood transfusion. Continues to have bleeding per rectum. Hemoglobin 9 today. Denies any abdominal pain today. Vitals/I&O/Wt Last Vital Signs Temp 98.6 F 08/24/24 06:19 Pulse 60 08/24/24 06:19 Resp 19 H 08/24/24 06:19 BP 128/72 08/24/24 01:42 Pulse Ox 95 08/24/24 06:19 O2 Del Method Room Air 08/23/24 14:52 08/24/24 08/24/24 08/24/24 06:59 14:59 22:59 Intake Total 1350 / 2290 Balance 1350 / 2290 Weight last 48 hrs Weight 86.239 kg Weight 86.5 kg Physical Exam 2 Narrative: General: No acute distress, AO x3, Pallor present, sick appearing HEENT: PERRLA, pupils bilaterally equal and reactive Chest: Normal vesicular breath sounds, no added sounds, equal good air entry bilaterally CVS: S1-S2 regular, no murmurs, no tachycardia, no gallops, no rubs Abdomen: Soft, generalized mild tenderness more in the right lower quadrant, no organomegaly, bowel sounds present Neuro: No focal deficits, no facial deformity, AO x3, power 5/5 in all limbs Data 08/24/24 01:43 08/24/24 01:43 A&P Assessment and plan (1) Bleeding per rectum: (2) Diverticulosis large intestine w/o perforation or abscess w/bleeding: Plan Hematochezia Significant bleeding causing presyncopal event Pale complexion History of hemorrhoids and diverticulosis No active bleeding at the time of evaluation However significant drop in hemoglobin from 13-9 Will give him 1 unit PRBC Will keep him on liquid diet General Surgery consulted Keep him on Protonix DVT prophylaxis: SCDs Clear liquid diet Full code Previous colonoscopy 2021: Report mentioned in HPI Pain management for L2 fracture: No signs of cauda equina: Patient has been seeing Dr. Aguilar for pain management, Dr. Camacho will start his call days 09/07 Plan for the day: Patient been transferred to ICU at [facility] for further management and GI evaluation given ongoing GI bleed with no visualization of active bleeding. Postevent of blood transfusion. PDMP PDMP Reviewed: Not Reviewed Attestations 2 Medical Necessity Statement*: Being transferred to tertiary level. Diagnoses Bleeding per rectum K62.5 Diverticulosis large intestine w/o perforation or abscess w/bleeding K57.31
== END 2024-08-24 08:22 | disposition short-term general hospital (02) ==
LOC: ER 07:48 → ER IP 08:35 → CSU 10:19
PROVIDERS: Internal Medicine; Surgery; Admitting Provider Internal Medicine; Emergency Provider Emergency Medicine; PCP Family Medicine; Visit Provider Student in an Organized Health Care Education/Training Program
PROC: 0DJ08ZZ Inspection of Upper Intestinal Tract, Via Natural or Artificial Opening Endoscopic (ICD-10-PCS; principal; 2024-08-23 12:00)
PROC: 0DJD8ZZ Inspection of Lower Intestinal Tract, Via Natural or Artificial Opening Endoscopic (ICD-10-PCS; CPT 45378; 2024-08-23 12:00)
DX: K57.31 Diverticulosis of large intestine without perforation or abscess with bleeding (principal); R55 Syncope and collapse; I10 Essential (primary) hypertension; Z87.11 Personal history of peptic ulcer disease; K64.9 Unspecified hemorrhoids; K21.9 Gastro-esophageal reflux disease without esophagitis; D64.9 Anemia, unspecified; M79.604 Pain in right leg; M48.56XA Collapsed vertebra, not elsewhere classified, lumbar region, initial encounter for fracture; K29.50 Unspecified chronic gastritis without bleeding
CPT/HCPCS: 36415; 36430; 43239; 45378; 74174; 80048; 80053; 81001; 82607; 82746; 83036; 83540; 83550; 83690; 83735; 84100; 84443; 85014; 85018; 85025; 85610; 85730; 86850; 86900; 86920; 88305; 88342; 96374; 96375; 99285; A9270; G0378; J2405; J2470; J2704; J7030; P9016

== ENCOUNTER → 2024-09-13 15:54 | Outpatient (BNVA) | payer MEDICARE, SELFPAY | PROVIDERS: PCP Family Medicine; Visit Provider Family Medicine | DX: K57.93 Diverticulitis of intestine, part unspecified, without perforation or abscess with bleeding (principal); D64.9 Anemia, unspecified; I10 Essential (primary) hypertension; Z12.5 Encounter for screening for malignant neoplasm of prostate | CPT/HCPCS: 80061; 85025; G0103 ==

== ENCOUNTER 2025-04-21 14:19 | Outpatient (CLI) | payer MEDICARE, SELFPAY ==
--- NOTE | 2025-04-21 14:30 | MR_ITS ---
WS: [id number] MRI/MRCP OF THE ABDOMEN WITHOUT GADOLINIUM ENHANCEMENT TECHNIQUE: Coronal T2 Fase BH, Axial T2 Fase BH, Axial T2 FS BH, Zxial 3D [place] BH, Axial DWI BH, 2D MRCP Radial BH, 3D MRCP (Resp), and Axial 3D Dyn BH Post sequences. CLINICAL INFORMATION: K86.9 - Disease of pancreas, unspecified COMPARISON: Outside CTA 08/25/2024 CT to 09/14 and CTAs dating back to 2021 FINDINGS: Some images are degraded due to susceptibility artifact from spine hardware and respiratory artifact. There is a T2 hyperintense cystic-appearing lesion in the pancreatic head measuring approximately 12 mm. Gadolinium not administered. This appears relatively stable dating back to the 2021 CTA abdomen pelvis considering differences in technique and slice thickness. No pancreatic ductal dilatation. This is technically indeterminate but differential considerations include sidebranch IPMN, simple or pseudocyst cyst, or less likely serous cystadenoma. Recommend 6-month follow-up MRCP without and with gadolinium enhancement for better detail and to evaluate stability. Additional similar-appearing lesion along the uncinate process/neck measuring 8 mm. Additional cystic-appearing lesion along the pancreatic body dorsally measuring 11 mm with a similar appearance suspicious for a sidebranch IPMN. Several additional smaller similar-appearing lesions in the tail the pancreas measuring up to 5 mm also suspicious for sidebranch IPMNs. Simple appearing large RIGHT renal cysts. The largest measures 9.5 x 9.6 cm adrenal glands are normal. Normal gallbladder. Postoperative changes GE junction. MR/MR abdomen [facility] [id number] Impression: Recommend 6 month follow-up MRCP without and with gadolinium enhancement of th e 12 mm pancreatic lesion . Additional similar-appearing 11 mm lesion dorsally along the pancreatic body. Numerous other similar-appearing subcentimeter lesio ns in the pancreas described above.
== END 2025-04-21 14:20 | disposition home or self-care (01) ==
LOC: RAD 14:21
PROVIDERS: PCP Family Medicine; Visit Provider Family Medicine
DX: K86.9 Disease of pancreas, unspecified (principal); N28.1 Cyst of kidney, acquired
CPT/HCPCS: 74181